=== PATIENT | male | born 1940 | race Caucasian/White ===

== ENCOUNTER 2023-04-16 09:00 | Outpatient (RCR) | payer MEDICARE, SELFPAY | END 2023-04-16 11:10 | disposition home or self-care (01) | LOC: HO.PTCHIC 09:00 | PROVIDERS: PCP Internal Medicine; Visit Provider Internal Medicine | DX: R26.9 Unspecified abnormalities of gait and mobility (principal) | CPT/HCPCS: 97110; 97112; 97162 ==

== ENCOUNTER → 2023-09-11 15:49 | Outpatient (AMB) | payer MEDICARE, SELFPAY ==
--- NOTE | 2023-09-11 16:06 | MHC.OFFWIV ---
Intake Vital Signs 09/11/23 16:07 Height 5 ft 8 in Weight 203 lb BMI 30.9 BP 118/80 Blood Pressure Location Rt brachial Position Sitting Pulse 74 Pulse Source Pulse Oximeter Temp 98.7 F Temp Source Oral Pulse Oximetry (%) 98 Oxygen Delivery Method Room Air Intake Visit Reasons: fell while sanding a bench hit head- see comm Intake Note: pt c/o head pain due to fall. hit head. Approx. 3:30 PM today Patient Tobacco Use Status: Former Tobacco user Allergies No Known Allergies Allergy (Verified 09/11/23 16:10) Do you need a note to return to daycare/school/sports/work: No HPI HPI Comments History of Present Illness Details 83-year-old male presents today after falling off a bench and hitting his head on the concrete he has a large hematoma on the back of his head. He currently is on Eliquis. He denies loss of consciousness and was brought here by his [facility] Social History Patient Tobacco Use Status: Former Tobacco user Review of Systems Const All systems reviewed & are unremarkable except as noted in HPI and below Reports headache(s) Eyes Reports no additional complaints ENT Reports no additional complaints and Reports headache(s) Card Reports no additional complaints Resp Reports no additional complaints Skin/Breast Details: The patient has a large hematoma posterior aspect of his head with a small laceration Reports wounds Neuro Reports headache(s) Physical Exam Vital Signs: Last Vital Signs Temp 98.7 F 09/11/23 16:07 Pulse 74 09/11/23 16:07 BP 118/80 09/11/23 16:07 Pulse Ox 98 09/11/23 16:07 Oxygen Delivery Method Room Air 09/11/23 16:07 BMI result Body Mass Index 30.9 Const General: healthy appearing and acute distress mild HEENT Head: Yes hematoma, Yes laceration and Yes scalp tenderness Assessment & Plan Assessment & Plan (1) Head injury due to trauma: Code(s): S09.90XA - Unspecified injury of head, initial encounter Plan: The patient will go to the emergency department for full workup and possible imaging. His will drive him Plan See plan Coding Level of Care Code Est Pt Level 3 (52433) Diagnoses Head injury due to trauma S09.90XA
[2023-09-11 16:07] VITALS: BP 118/80; PULSE 74; TEMP 37.1; O2SAT 98; BMI 30.9
== END ==
PROVIDERS: PCP Internal Medicine; Visit Provider Physician Assistant Medical
DX: S09.90XA Unspecified injury of head, initial encounter (principal)
CPT/HCPCS: 99213

== ENCOUNTER 2023-09-11 16:41 | Emergency (ER) | payer MEDICARE, SELFPAY ==
--- NOTE | ~2023-09-11 | CT_ITS ---
Examination: CT cervical spine and chest x-ray. CLINICAL INDICATION: Status post fall with head strike. On helical wrist. Back pain. COMPARISON: Chest x-ray 05/13/2010. TECHNIQUE: 3 mm thin axial and reformatted 2 mm thin sagittal and coronal images of cervical spine were obtained. DLP 1056. This CT examination was performed using dose optimization technique as appropriate, variously including the following: Automated exposure control Adjustment of MA and/or KV according to patient size(this includes techniques or standardized protocols for targeted exams where dose is matched to indication/reason for exam; extremities or head. Use of iterative reconstruction techniques. Chest x-ray 1 view. FINDINGS: CHEST: Single view of the chest reveals lungs to be expanded and clear. Heart size is borderline enlarged. Pulmonary vascularity is normal. No gross bony abnormality seen. CERVICAL SPINE: There is mild straightening of cervical lordosis the vertebral heights and alignment is normal. Is loss of C4-C5, C5-C6, C6-C7 and C7-T1 disc heights with mild ventral and posterior spondylosis. The craniovertebral junction and the C1-C2 alignment is normal. There is no visible acute fracture, dislocation or subluxation seen. The prevertebral and paravertebral soft tissues are normal. Moderate left C2-C3, bilateral C3-C4 and C4-C5 facet joint arthropathy is noted. The lung apices are clear. CT/CT cervical spine wo IV con IMPRESSION: 1. No visible acute fracture, dislocation or subluxation seen in cervical spine. 2. Degenerative disc changes C4-C5 through C7-T1 disc levels with mild ventral and posterior spondylosis. 3. Unremarkable chest exam
--- NOTE | ~2023-09-11 | CT_ITS ---
CT HEAD WITHOUT CONTRAST CLINICAL HISTORY: Headache, trauma. On anticoagulation TECHNIQUE: CT of the brain was performed from the skull base through the vertex using a routine non-contrast protocol. All CT exams at this location are performed using dose optimization techniques as appropriate to a performed exam including at least one of the following: * Automated exposure control * Adjustment of the mA and/or kV according to patient size (this includes techniques or standardized protocols for targeted exams where dose is matched to indication / reason for exam; i/e/ extremities or head) * Use of iterative reconstructive technique DLP: 6024 03/30/2010 mGy-cm COMPARISON: None. RESULTS: There is no evidence of acute intracranial hemorrhage, acute large vessel infarct, midline shift or mass effect. The gutierrez-white differentiation is preserved. Periventricular and subcortical white matter changes seen consistent chronic microvascular ischemic disease. Generalized atrophy is seen. Ventricles are prominent in size due to underlying atrophy. There is no evidence of hydrocephalus. There are no extraaxial collections. Osseous structures are intact. Paranasal sinuses and mastoid air cells are well aerated. CT/CT head/brain wo IV con IMPRESSION: No acute intracranial pathology. Chronic microvascular ischemic changes and atrophy.
--- NOTE | ~2023-09-11 | US_ITS ---
EXAMINATION: US VENOUS ULTRASOUND WITH DOPPLER LOWER EXTREMITY, BILATERAL CLINICAL INFORMATION: Bilateral lower extremity pain and swelling COMPARISON: None available. TECHNIQUE: Ultrasound of the deep veins is performed from the hip to the calf with compression sonography and color and pulse Doppler assessment. Spectral analysis with color-flow imaging is performed. FINDINGS: RIGHT: There is normal venous compression and respiratory variation and augmented flow. The visualized common femoral vein, superficial femoral vein, profunda femoral vein, popliteal vein, and the trifurcation region shows no evidence of deep venous thrombosis. There is no significant popliteal fossa cyst. LEFT: There is normal venous compression and respiratory variation and augmented flow. The visualized common femoral vein, superficial femoral vein, profunda femoral vein, popliteal vein, and the trifurcation region shows no evidence of deep venous thrombosis. There is no significant popliteal fossa cyst. Enlarged lymph nodes seen in the left groin measuring 3.1 x 1.0 x 2.1 cm If the patient's symptoms persist, followup ultrasound in 5 days 7 days might be of value to exclude proximal propagation from a non-visualized calf vein. US/US venous duplex LE IMPRESSION: No DVT demonstrated in the bilateral lower extremity.
[2023-09-11 16:49] VITALS: BP 126/60; PULSE 74; RESP 18; TEMP 36.3; O2SAT 96; BMI 30.7
--- NOTE | 2023-09-11 16:50 | ED.FALL ---
HPI - Fall General Chief Complaint: Fall Stated Complaint: Head injury Time Seen by Provider: 09/11/23 17:16 Source: patient Mode of arrival: ambulatory Limitations: no limitations History of Present Illness ED Provider: Zenon CAIN HPI Narrative: This is an 83-year-old male history of obesity, afib anticoagulated on Eliquis presenting to the emergency department with his status post fall from standing, patient reports he was sanding a bench, he stepped back, lost his footing fell back hit his head. No head strike or loss of consciousness. No trauma to chest, abdomen or pelvis. At this time he feels well, he reports he had a mild headache however does not have an anymore. Last dose of Eliquis this morning. He is up-to-date on tetanus shot. Denies preceding symptoms to fall such as chest pain, shortness of breath, headache, vision changes, dizziness, weakness. NIH stroke scale 0 Related Data Home Medications ?Medication ?Instructions ?Recorded ?Confirmed amlodipine 5 mg tablet 5 mg PO DAILY 09/11/23 apixaban 5 mg tablet (Eliquis) 5 mg PO BID 09/11/23 ciclopirox 0.77 % topical cream appl topical 09/11/23 finasteride 5 mg tablet 5 mg PO DAILY 09/11/23 glipizide 10 mg tablet, extended 10 mg PO DAILY 09/11/23 release 24 hr lisinopril 20 mg tablet 20 mg PO BID 09/11/23 metformin 1,000 mg tablet 1,000 mg PO BID 09/11/23 simvastatin 20 mg tablet 20 mg PO BEDTIME 09/11/23 sotalol 80 mg tablet 80 mg PO BID 09/11/23 tamsulosin 0.4 mg capsule 0.8 mg PO DAILY 09/11/23 Allergies Allergy/AdvReac Type Severity Reaction Status Date / Time No Known Allergies Allergy Verified 09/11/23 16:51 Review of Systems Review of Systems: Yes all other systems are reviewed and are negative PMFSH Past Medical History Attestation statement: The following information was validated with the patient. Source: old records reviewed and nursing notes reviewed Social History Social History Patient Tobacco Use Status: Former Tobacco user Smoked in Last 30 Days: No Use of substances other than those prescribed or required for medical reasons: No Advance Directives: No Advance Directives Information Provided: No Physical Exam Vital Signs: Vital Signs: Last Vital Signs Temp 98 F 09/11/23 17:29 Pulse 74 09/11/23 17:29 Resp 17 09/11/23 17:29 BP 149/68 H 09/11/23 17:29 Pulse Ox 97 09/11/23 17:29 O2 Del Method Room Air 09/11/23 17:29 BMI result Body Mass Index 30.7 vss Appearance: Alert.? Oriented X3.? No acute distress.? Head: Normocephalic, atraumatic, no step-offs or deformities + large hematoma to right posterior scalp with overlying non bleeding small lac. Eyes: Pupils equal, round and reactive to light.? Neck: Normal inspection.? Neck supple.? CVS: Normal heart rate and rhythm.? Pulses normal.? Respiratory: No respiratory distress.? Breath sounds normal.? Abdomen: Soft and nontender.? Skin: Skin warm and dry.? Normal skin color.? Normal skin turgor.? Extremities: 4+ pititng edema from knee down b/l L>R .? No calf ttp. 5/5 strength to bilateral upper and lower extremities Back: No midline tenderness, no C-spine tenderness, full range of motion, no CVA tenderness bilaterally Neuro: Oriented X 3.? No motor deficit.? No sensory deficit. CN 2-12 intact . Normal qqaypv-[id number]-rgyw, fppv-br-jqxp. Course Course Course Narrative: This is a Rapid Medical Examination (RME) performed by Cari Hurst PA-C in triage. Full HPI, ROS, assessment and treatment plan per primary provider in the Main ED. 83 yo male with history of afib on eliquis who presents to the ER for evaluation of a mechanical fall w/ head strike. He reports 330pm he tripped and fell backward, hitting the back of his head. no LOC. small lac to the back of the head but no active bleeding. headache resolved. no current symptoms Plan: CT head/c-spine Reevaluation(s) Reevaluation #1: Chest x-ray no visible fracture, degenerative disc changes C4 through C5 through C7-T1. Unremarkable chest exam. Head CT no acute intracranial pathology, chronic microvascular ischemic changes and atrophy. CT cervical spine no visible acute fracture, dislocation or subluxation. Degenerative disc changes C4 through C5 through C7-T1. Wet read of DVT study negative. Patient feeling well. Educated patient on diagnosis and treatment plan, answered all question, patient verbalizes understanding. At this time patient will be discharged home, advised to return with new or worsening symptoms. Educated on worrisome signs and symptoms and when to return. At this time I feel comfortable discharge home. Time: 20:32 Medical Decision Making Medical Decision Making [facility] Narrative: 83-year-old male presents with fall and head injury no loss of consciousness. He has on Eliquis. No complaints at this time Physical exam large hematoma to right posterior scalp with overlying non bleeding small lac. No neuro nonfocal. Cerebellar intact. 4+ pititng edema from knee down b/l L>R .? History and physical exam concerning for concussion without loss of consciousness. Unlikely intracranial hemorrhage, stroke, posterior stroke, scalp fracture, dislocation or facial fractures or dislocation. No signs of traumatic injury to cervical spine. No signs of cervical myelopathy or cord compression. No other injuries to chest, abdomen, pelvis. Patient pain-free. No indication for more imaging at this time. Will obtain BNP to rule out CHF although unlikely as breath sounds are clear to auscultation bilaterally. Will also obtain venous duplex to rule out DVT palpable pulses unlikely arterial occlusion Plan imaging basic labs. Differential Diagnosis Differential Diagnoses: The differential diagnosis associated with the presentation includes History and physical exam concerning for concussion without loss of consciousness. Unlikely intracranial hemorrhage, stroke, posterior stroke, scalp fracture, dislocation or facial fractures or dislocation. No signs of traumatic injury to cervical spine. No signs of cervical myelopathy or cord compression. No other injuries to chest, abdomen, pelvis. Patient pain-free. No indication for more imaging at this time. Will obtain BNP to rule out CHF although unlikely as breath sounds are clear to auscultation bilaterally. Will also obtain venous duplex to rule out DVT palpable pulses unlikely arterial occlusion Admission/Observation Consideration of admission/observation: Escalation of care including admission/observation considered [facility] Lab Data [facility] Lab Attestation statement: I reviewed the patient's lab results. 09/11/23 17:37 09/11/23 18:45 Labs: Lab Results 09/11/23 09/11/23 09/11/23 Range/Units 17:37 17:56 18:45 WBC 5.4 (4.8-10.8) X10*3/uL RBC 3.71 L (4.60-5.80) X10*6/uL Hgb 12.0 L (14.0-18.0) g/dl Hct 35.0 L (42.0-52.0) % MCV 94.3 (80.0-98.0) fL MCH 32.3 (27.0-33.0) pg MCHC 34.3 (31.0-36.0) g/dl RDW 12.6 (11.0-16.0) % Plt Count 212 (160-400) X10*3/uL MPV 9.4 (9.4-12.4) fL Immature Gran % (Auto) 0.2 (0.0-0.4) % Neut % (Auto) 76.9 H (45-73) % Lymph % (Auto) 9.6 L (20-40) % [place] % (Auto) 7.4 (2-11) % Eos % (Auto) 5.7 H (0-4) % Baso % (Auto) 0.2 (0-2) % Lymph # (Auto) 0.5 L (1.2-4.9) X10*3/uL [place] # (Auto) 0.4 (0.1-1.2) X10*3/uL Eos # (Auto) 0.3 (0.0-0.4) X10*3/uL Baso # (Auto) 0.0 (0.0-0.2) X10*3/uL Abs Immat Gran (auto) 0.01 (0.00-0.03) X10*3/uL Absolute Neuts (auto) 4.2 (2.0-8.3) x10*3/uL Absolute Nucleated RBC 0.000 (0.0-0.012) X10*3/uL Nucleated RBC % (auto) 0.0 (0.0-0.2) /100WBC PT 13.9 H (11.1-13.3) SEC INR 1.1 (0.9-1.1) Sodium 140 (135-145) mmol/L Potassium 4.4 (3.3-5.1) mmol/L Chloride 109 H (96-108) mmol/L Carbon Dioxide 23 (22-29) mmol/L Anion Gap 12 (12-20) BUN 18 H (9-16) mg/dL Creatinine 1.15 (0.5-1.4) mg/dL Estim Creat Clear Calc 52.5 Estimated GFR > 60 Random Glucose 149 H (60-115) mg/dL Calcium 9.4 (8.4-10.2) mg/dL Total Bilirubin 0.6 (0.0-1.0) mg/dL AST 14 (5-37) U/L ALT 12 (0-40) U/L Alkaline Phosphatase 55 (39-117) U/L Troponin I High Sens 2.9 (<3.5-35.0) ng/L B-Natriuretic Peptide 44 (<100) pg/mL Total Protein 6.1 L (6.5-8.0) g/dL Albumin 3.8 (3.5-5.0) g/dL Independent Interpretation I performed an independent interpretation of an: EKG (Vent. Rate : 067 BPM Atrial Rate : 067 BPM P-R Int : 188 ms QRS Dur : 084 ms QT Int : 410 ms P-R-T Axes : 038 020 035 degrees QTc Int : 433 ms Normal sinus rhythm Normal ECG When compared with ECG of 04-APR-2014 16:23, No significant change was found), Plain X-Ray, Ultrasound and CT Scan Radiology Impression Discussion of test interpretation with radiology: I have reviewed the radiologist's reading. External Record Review External record reviewed: Outpatient record Prescription Management I considered prescription management with: Pain Medication Social Determinants Patient?s care significantly limited by Social Determinants of Health including: Problems related to employment Discharge Plan Discharge Clinical Impression: Concussion without loss of consciousness, Fall on same level from tripping, Lower extremity edema Patient Disposition: Home, Self-Care Instructions: Concussion (ED), Post Concussion Syndrome (ED), Leg Edema (ED) Additional Instructions: Take your medications as prescribed. If you were prescribed antibiotics today, it is important that you take your medication to their entirety, do not skip any doses, do not finish them early. Follow-up with your primary care provider this week. Return to the emergency department with new or worsening symptoms. Such as fevers, chills, chest pain, shortness of breath, nausea, vomiting, dizziness, headache, vision changes, lethargy In case of emergency call 911 You can take Tylenol as needed every 4 hours for pain. Do not exceed maximum daily dose as listed on packaging Follow-up with your PCP for lower extremity swelling CT/CT head/brain wo IV con IMPRESSION: No acute intracranial pathology. Chronic microvascular ischemic changes and atrophy. CHEST: Single view of the chest reveals lungs to be expanded and clear. Heart size is borderline enlarged. Pulmonary vascularity is normal. No gross bony abnormality seen. CERVICAL SPINE: There is mild straightening of cervical lordosis the vertebral heights and alignment is normal. Is loss of C4-C5, C5-C6, C6-C7 and C7-T1 disc heights with mild ventral and posterior spondylosis. The craniovertebral junction and the C1-C2 alignment is normal. There is no visible acute fracture, dislocation or subluxation seen. The prevertebral and paravertebral soft tissues are normal. Moderate left C2-C3, bilateral C3-C4 and C4-C5 facet joint arthropathy is noted. The lung apices are clear. XR/XR chest 1V IMPRESSION: 1. No visible acute fracture, dislocation or subluxation seen in cervical spine. 2. Degenerative disc changes C4-C5 through C7-T1 disc levels with mild ventral and posterior spondylosis. 3. Unremarkable chest exam Prescriptions: No Action amlodipine 5 mg tablet 5 mg PO DAILY sotalol 80 mg tablet 80 mg PO BID ciclopirox 0.77 % cream topical lisinopril 20 mg tablet 20 mg PO BID metformin 1,000 mg tablet 1,000 mg PO BID glipizide 10 mg tablet extended release 24hr 10 mg PO DAILY simvastatin 20 mg tablet 20 mg PO BEDTIME tamsulosin 0.4 mg capsule 0.8 mg PO DAILY finasteride 5 mg tablet 5 mg PO DAILY Eliquis 5 mg tablet 5 mg PO BID Referrals: Ruben Paul DO, MD [Primary Care Provider] - 2 days Print Language: Bangladeshi
[2023-09-11 17:29] VITALS: BP 149/68; PULSE 74; RESP 17; TEMP 36.6; O2SAT 97
--- NOTE | 2023-09-11 17:36 | ECG_ITS ---
Test Reason : FALL, HEAD STRIKE Blood Pressure : / mmHG Vent. Rate : 067 BPM Atrial Rate : 067 BPM P-R Int : 188 ms QRS Dur : 084 ms QT Int : 410 ms P-R-T Axes : 038 020 035 degrees QTc Int : 433 ms Normal sinus rhythm Normal ECG When compared with ECG of 04-APR-2014 16:23, No significant change was found Referred By: Radha Trotter Electronically Signed By:Rd Hou
[2023-09-11 17:42] LABS: MANUAL DIFF FLAG NO
[2023-09-11 17:45] LABS: Basophils Percent Auto 0.2 % (0-2); Eosinophils Absolute Auto 0.3 X10*3/uL (0.0-0.4); Eosinophils Percent Auto 5.7 % (0-4); Imm Gran Abs Auto 0.01 X10*3/uL (0.00-0.03); Imm Gran Pct Auto 0.2 % (0.0-0.4); Lymphocytes Absolute Auto 0.5 X10*3/uL (1.2-4.9); Lymphocytes Percent Auto 9.6 % (20-40); Mean Corpuscular HGB Conc 34.3 g/dl (31.0-36.0); Mean Corpuscular Hemoglobin 32.3 pg (27.0-33.0); Mean Corpuscular Volume 94.3 fL (80.0-98.0); Mean Platelet Volume 9.4 fL (9.4-12.4); Monocytes Absolute Auto 0.4 X10*3/uL (0.1-1.2); Monocytes Percent Auto 7.4 % (2-11); Neutrophils Absolute Auto 4.2 x10*3/uL (2.0-8.3); Neutrophils Percent Auto 76.9 % (45-73); Platelet Count 212 X10*3/uL (160-400); Red Blood Count 3.71 X10*6/uL (4.60-5.80); Red Cell Distribution Width 12.6 % (11.0-16.0); White Blood Count 5.4 X10*3/uL (4.8-10.8)
[2023-09-11 17:50] LABS: INTERNATIONAL NORM RATIO 1.1 (0.9-1.1); Prothrombin Time 13.9 SEC (11.1-13.3)
[2023-09-11 18:24] LABS: Troponin-I High Sensitivity 2.9 ng/L (<3.5-35.0)
[2023-09-11 19:08] LABS: Alanine Aminotransferase 12 U/L (0-40); Albumin Level 3.8 g/dL (3.5-5.0); Alkaline Phosphatase 55 U/L (39-117); Anion Gap 12 (12-20); Aspartate Amino Transferase 14 U/L (5-37); Bilirubin Total 0.6 mg/dL (0.0-1.0); Blood Urea Nitrogen 18 mg/dL (9-16); Calcium 9.4 mg/dL (8.4-10.2); Carbon Dioxide 23 mmol/L (22-29); Chloride 109 mmol/L (96-108); Creatinine Clr Calc Pharmacy 52.5; Estimated Glomerular Filt Rate > 60; Glucose Random 149 mg/dL (60-115); Potassium 4.4 mmol/L (3.3-5.1); Sodium 140 mmol/L (135-145); Total Protein 6.1 g/dL (6.5-8.0)
--- NOTE | 2023-09-11 19:29 | PC.NURSE ---
Assumed care of pt. See head to toe reassessment of cardiovascular for findings on edema. No other complaints at this time.
[2023-09-11 19:44] LABS: B Type Natriuretic Peptide 44 pg/mL (<100)
[2023-09-11 21:04] VITALS: BP 149/68; PULSE 74; RESP 17; TEMP 36.6; O2SAT 97
== END 2023-09-11 21:05 | disposition home or self-care (01) ==
PROVIDERS: Physician Assistant; Emergency Provider Emergency Medicine; PCP Internal Medicine
DX: S06.0X0A Concussion without loss of consciousness, initial encounter (principal); R60.0 Localized edema; M54.2 Cervicalgia; R51.9 Headache, unspecified; R07.89 Other chest pain; I48.91 Unspecified atrial fibrillation; R06.02 Shortness of breath; W01.0XXA Fall on same level from slipping, tripping and stumbling without subsequent striking against object, initial encounter; Y93.89 Activity, other specified; Y92.098 Other place in other non-institutional residence as the place of occurrence of the external cause; Y99.8 Other external cause status; Z79.899 Other long term (current) drug therapy; Z79.01 Long term (current) use of anticoagulants
CPT/HCPCS: 36415; 70450; 71045; 72125; 80053; 83880; 84484; 85025; 85610; 93005; 93970; 99284; 99285

== ENCOUNTER → 2023-09-11 17:36 | Outpatient (BNV) | payer MEDICARE, SELFPAY | PROVIDERS: Emergency Provider Emergency Medicine; PCP Internal Medicine; Visit Provider Internal Medicine Cardiovascular Disease | DX: S09.90XA Unspecified injury of head, initial encounter (principal); W19.XXXA Unspecified fall, initial encounter | CPT/HCPCS: 93010 ==

== ENCOUNTER 2024-01-13 14:31 | Inpatient (IN) | payer MEDICARE, SELFPAY ==
--- NOTE | ~2024-01-13 | CT_ITS ---
EXAMINATION: CT HEAD WITHOUT CONTRAST CLINICAL INFORMATION: Headache on blood thinner COMPARISON: Head CT 09/11/2023 TECHNIQUE: Contiguous axial imaging was performed from the skull base to vertex without intravenous administration of contrast. This CT examination was performed using dose optimization techniques as appropriate, variously including the following: *Automated exposure control *Adjustment of mA and/or kV according to patient size (this includes techniques or standardized protocols for targeted exams where dose is matched to indication/reason for exam; i.e. extremities or head) *Use of iterative reconstruction technique DLP: 1074 mGy-cm FINDINGS: No intra-axial or extra-axial hemorrhage. No acute territorial infarct. Chronic small vessel ischemic disease of the periventricular white matter with generalized atrophy. Preservation of gutierrez-white matter differentiation. No mass, mass effect, or midline shift. No fracture. The mastoid air cells and visualized paranasal sinuses are clear. CT/CT head/brain wo IV con IMPRESSION: No acute intracranial pathology. Electronically signed by: Douglas Contreras MD 01/13/2024 05:31 PM [facility]
--- NOTE | ~2024-01-13 | XR_ITS ---
EXAMINATION: XR CHEST CLINICAL INFORMATION: fever COMPARISON: September 11, 2023 TECHNIQUE: Frontal view of the chest was obtained. FINDINGS: The cardiomediastinal silhouette is within normal limits and stable. There appears to be bronchial thickening and perihilar increased markings. There is no focal lung consolidation or pleural effusions. The bony structures and the soft tissues are unremarkable. XR/XR chest 1V IMPRESSION: Bronchial thickening and perihilar increased markings. Consider bronchitis. No focal lung consolidation. Electronically signed by: Gaurang Baker MD 01/14/2024 01:09 AM [facility]
--- NOTE | ~2024-01-13 | CT_ITS ---
EXAMINATION: CT ANGIOGRAM HEAD AND NECK WITHOUT AND WITH CONTRAST CLINICAL INFORMATION: HEADACHE. COMPARISON: CT HEAD DATED 01/13/2024. TECHNIQUE: CONTIGUOUS AXIAL CT IMAGES WERE OBTAINED FROM THE AORTIC ARCH TO THE VERTEX OF THE HEAD FOLLOWING THE ADMINISTRATION OF 50 ML OF OMNIPAQUE 350 INTRAVENOUS CONTRAST. THE DATA WAS TRANSFERRED TO AN INDEPENDENT WORKSTATION, WHERE 3-D RECONSTRUCTIONS WERE PERFORMED. PRE-AND POSTCONTRAST HEAD CT WAS ALSO PERFORMED. THE DEGREE OF STENOSIS DETERMINED BY NASCET CRITERIA. THIS CT EXAMINATION WAS PERFORMED USING DOSE OPTIMIZATION TECHNIQUES APPROPRIATE, VARIOUSLY INCLUDING THE FOLLOWING: *AUTOMATED EXPOSURE CONTROL *ADJUSTMENT OF MA AND/OR KV ACCORDING TO PATIENT SIZE (THIS INCLUDES TECHNIQUES OR STANDARDIZED PROTOCOLS FOR TARGETED EXAMS WHERE DOSE IS MATCHED TO INDICATION/REASON FOR EXAM; I.E. EXTREMITIES OR HEAD) *USE OF ITERATIVE RECONSTRUCTION TECHNIQUE DLP: 1449 MGY-CM INTERPRETATION OF FILMS: HEAD CT: There is no intracranial hemorrhage. No evidence of acute/subacute infarction. There is moderate microvascular ischemic change. No extra-axial fluid collection, mass effect, or midline shift. The ventricles are normal in size and configuration. There is no pathologic enhancement. The orbits are symmetric and within normal limits. Visualized paranasal sinuses and mastoid air cells are clear. NECK CTA: The visualized aorta is normal in caliber. The origins of the common carotid and vertebral arteries are widely patent. The subclavian arteries are widely patent. There is mild calcific atherosclerotic disease at the level of the right carotid bulb resulting in mild luminal irregularity without stenosis. The cervical segment of the right internal carotid otherwise demonstrates smooth luminal margins and is normal in caliber. There is mild calcific atherosclerotic disease at the level of the left carotid bulb resulting in mild luminal irregularity without stenosis. The cervical segment of the left internal carotid otherwise demonstrates smooth luminal margins and is normal in caliber. The right vertebral artery is patent and has a normal course through the cervical region. The left vertebral artery is patent and has a normal course through the cervical region. HEAD CTA: The intracranial right internal carotid artery is normal in caliber. The right anterior and middle cerebral arteries are normal in appearance without significant stenosis or major branch vessel occlusion. The intracranial left internal carotid artery is normal in caliber. The left anterior and middle cerebral arteries are normal in appearance without significant stenosis or major branch vessel occlusion. The anterior communicating artery is unremarkable. The right vertebral artery terminates in PICA. The left vertebral artery is normal in appearance. The posterior inferior cerebellar arteries are normal in appearance. There is a short segment fenestration within the proximal third of the basilar artery. The basilar artery and posterior cerebral artery vasculature are otherwise normal in appearance. No intracranial aneurysm. No evidence of high flow vascular malformation. OTHER: Lung apices are clear. The thyroid gland is normal in appearance. SUMMARY: CT HEAD: No acute intracranial abnormality. NECK CTA: Mild calcific atherosclerotic disease at the level of the carotid bulbs results in mild luminal irregularity without stenosis. HEAD CTA: No intracranial large vessel occlusion. Electronically signed by: Tomas Nicole DO 01/13/2024 10:09 PM EST
--- NOTE | ~2024-01-13 | CT_ITS ---
EXAMINATION: CT CHEST WITHOUT CONTRAST CLINICAL INFORMATION: Concern for pneumonia. COMPARISON: None available. TECHNIQUE: Multidetector volumetric CT imaging of the chest was done. Axial MIP volume rendering provided. Sagittal and coronal reformatted images were obtained. This CT examination was performed using dose optimization techniques as appropriate, variously including the following: *Automated exposure control *Adjustment of mA and/or kV according to patient size (this includes techniques or standardized protocols for targeted exams where dose is matched to indication/reason for exam; i.e. extremities or head) *Use of iterative reconstruction technique DLP: 457 mGy-cm FINDINGS: HEAD WAITER: Unremarkable. LUNGS: There is mild dependent consolidation at the lung bases most significant on the left. The lungs are otherwise clear. There is bilateral bronchial thickening. MEDIASTINUM: [The heart is normal in size. There is no pericardial effusion. There is atherosclerotic plaque of the thoracic aorta without aneurysm. There is no significant lymph node enlargement. CORONARY ARTERY CALCIFICATION: Moderate to severe. PLEURA: There is no pleural effusion. No pleural mass or thickening. AXILLA: No lymphadenopathy. UPPER ABDOMEN: There appear to be left renal calculi. OSSEOUS STRUCTURES: Unremarkable. CT/CT chest wo IV con IMPRESSION: 1. Mild dependent consolidation at the lung bases, left greater than right. This is most consistent with atelectasis. Infectious infiltrate considered less likely. 2. Bilateral bronchial thickening. Suspect bronchitis. 3. Coronary artery calcifications. 4. Left renal calculi. Fleischner guidelines were followed. Electronically signed by: Gaurang Baker MD 01/14/2024 03:16 AM [facility]
[2024-01-13 14:54] VITALS: BP 160/90; PULSE 90; O2SAT 96
[2024-01-13 15:04] VITALS: BP 159/71; PULSE 80; RESP 18; TEMP 36.7; O2SAT 93; BMI 28.7
--- NOTE | 2024-01-13 15:14 | ECG_ITS ---
Test Reason : weakness Blood Pressure : / mmHG Vent. Rate : 087 BPM Atrial Rate : 087 BPM P-R Int : 182 ms QRS Dur : 082 ms QT Int : 366 ms P-R-T Axes : 050 039 033 degrees QTc Int : 440 ms Normal sinus rhythm Normal ECG When compared with ECG of 11-SEP-2023 17:47, No significant change was found Referred By: Solange Mcclendon Electronically Signed By:Rd Hou
[2024-01-13 15:34] LABS: Basophils Percent Auto 0.5 % (0-2); Eosinophils Absolute Auto 0.1 X10*3/uL (0.0-0.4); Eosinophils Percent Auto 1.1 % (0-4); Hematocrit 36.6 % (42.0-52.0); Hemoglobin 12.1 g/dl (14.0-18.0); Imm Gran Abs Auto 0.02 X10*3/uL (0.00-0.03); Imm Gran Pct Auto 0.4 % (0.0-0.4); Lymphocytes Absolute Auto 0.1 X10*3/uL (1.2-4.9); Lymphocytes Percent Auto 2.2 % (20-40); MANUAL DIFF FLAG NO; Mean Corpuscular HGB Conc 33.1 g/dl (31.0-36.0); Mean Corpuscular Hemoglobin 31.3 pg (27.0-33.0); Mean Corpuscular Volume 94.8 fL (80.0-98.0); Mean Platelet Volume 9.8 fL (9.4-12.4); Monocytes Absolute Auto 0.3 X10*3/uL (0.1-1.2); Monocytes Percent Auto 5.8 % (2-11); Platelet Count 228 X10*3/uL (160-400); Red Blood Count 3.86 X10*6/uL (4.60-5.80); White Blood Count 5.5 X10*3/uL (4.8-10.8)
[2024-01-13 15:52] LABS: Alanine Aminotransferase 18 U/L (0-40); Albumin Level 3.8 g/dL (3.5-5.0); Alkaline Phosphatase 49 U/L (39-117); Anion Gap 13 (12-20); Aspartate Amino Transferase 16 U/L (5-37); Bilirubin Direct 0.3 mg/dL (0.0-0.5); Bilirubin Total 0.8 mg/dL (0.0-1.0); Blood Urea Nitrogen 19 mg/dL (9-16); Carbon Dioxide 21 mmol/L (22-29); Chloride 106 mmol/L (96-108); Creatinine Clr Calc Pharmacy 58.8; Estimated Glomerular Filt Rate > 60; Glucose Random 156 mg/dL (60-115); Lipase 18 U/L (8-78); Magnesium 1.9 mg/dL (1.6-2.6); Potassium 3.9 mmol/L (3.3-5.1); Sodium 136 mmol/L (135-145); Total Protein 6.1 g/dL (6.5-8.0)
[2024-01-13 16:00] LABS: Troponin-I High Sensitivity 4.8 ng/L (<3.5-35.0)
--- NOTE | 2024-01-13 16:01 | ED.GENADULT ---
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 data, radiology results, discussion with consultants, and monitoring for potential decompensation. Intervention performed as documented. Discharge Plan Discharge Clinical Impression: Headache Qualifiers: Headache type: unspecified Headache chronicity pattern: acute headache Intractability: intractable Qualified Code(s): R51.9 - Headache, unspecified Patient Disposition: Admitted As Inpatient Interventions: Admission Worksheet (ED) Last Done: 01/15/24 13:53 Discharge Date/Time: 01/15/24 15:17
[2024-01-13 16:10] LABS: B Type Natriuretic Peptide 164 pg/mL (<100)
[2024-01-13 16:27] LABS: Influenza A PCR NEGATIVE (Negative); Influenza B PCR NEGATIVE (Negative); Resp Syncy Virus RNA Qual PCR NEGATIVE (Negative); SARS COV2 PCR INHOUSE NEGATIVE (Negative)
[2024-01-13] MEDS: Acetaminophen 1,000 MG/100 ML PIGGYBACK 400 MG IV (16:51)
[2024-01-13 18:00] VITALS: BP 130/59; PULSE 70; RESP 18; TEMP 36.7; O2SAT 95
[2024-01-13] MEDS: iohexoL 350 MG/ML 100 ML INFUS..BTL IV (18:10)
[2024-01-13 18:50] LABS: Carbon Monoxide 2.4
[2024-01-13 18:50] LABS: Carbon Monoxide POC 2.4 %
[2024-01-13 19:34] LABS: Appearance Urine Clear; Color Urine Yellow; Glucose Urine UA 250 mg/dL (Negative); Leukocyte Esterase Urine Negative (Negative); Nitrite Urine Negative (Negative); Specific Gravity - Urine >= 1.030 (1.005-1.025); Urine Blood Negative (Negative); Urine Ketones 15 mg/dL (Negative); Urine Protein Trace mg/dL (Neg-Trace)
[2024-01-13 23:40] VITALS: BP 123/55; PULSE 82; RESP 20; TEMP 39.5; O2SAT 98
[2024-01-14] VITALS (14 sets, daily range): BP systolic 112–147; BP diastolic 47–71; PULSE 40–73; RESP 10–24; TEMP 36.3–39.4; O2SAT 92–100
[2024-01-14 00:38] LABS: C Reactive Protein 3.49 mg/dL (< or = 0.50)
[2024-01-14 00:46] LABS: Lactic Acid 1.3 mmol/L (0.5-2.0)
[2024-01-14] MEDS: Acetaminophen 1,000 MG/100 ML PIGGYBACK 400 MG IV (00:49)
[2024-01-14] MEDS: 0.9 % Sodium Chloride 1,000 ML 999 ML IV (00:50)
[2024-01-14] MEDS: Morphine Sulfate 2 MG/ML CARTRIDGE IVPUSH (00:53)
[2024-01-14] MEDS: cefTRIAXone sodium 2 GM VIAL IVPUSH ×3 (00:59→22:13)
--- NOTE | 2024-01-14 01:01 | PC.NURSE ---
pt temp 103.1, provider aware @2340, new orders in for labs and meds, however provided wanted to wait to do a lumbar puncture first before these interventions. this group underwriter followed up with provider at 0040 and was told LP was cancelled d/t pt taking eliquis. labs drawn and medication given following new information.
[2024-01-14] MEDS: Azithromycin 500 MG in 0.9 % Sodium Chloride 250 ML 125 MG IV (01:13)
[2024-01-14 01:17] LABS: Erythrocyte Sedimentation Rate 28 MM/HR (0-15)
--- NOTE | 2024-01-14 02:32 | PM.IMHP ---
History of Present Illness Date of Service: 01/14/24 Attending physician on admission: Madison Hart Chief Complaint: Headache Katina Stephens is 83 years old man with past medical history significant for AFib on Eliquis, essential hypertension and type 2 diabetes mellitus presents to the ED complaining of 1-week history of frontal headache associated with nausea and soft stools. He underwent a dental procedure (left upper teeth) about 10 days ago. He took a course of amoxicillin for 7 days. He denied any event of vomiting, neck pain, sore throat, cough, chest pain, abdominal pain or shortness on breath. He did not report any acute visual disturbances, focal weakness or speech difficulty. He did not report any acute urinary symptoms. HPI was somewhat limited as the patient was very uncomfortable due to headache. In the ED, he was found to have fever of 103. There is no tachycardia or hypotension. Oxygen saturation is normal on room air. Blood workup showed no leukocytosis or lactic acidosis. Hemoglobin is 12.1 and platelets 228. Electrolytes are normal. BUN is 19 and creatinine 1.09. Glucose 156. LFTs and lipase are normal. CRP is 3.49, BNP 164 and troponin 4.8. Urinalysis did not showed evidence of UTI but there is positive ketones. Viral testing for COVID-19, influenza and RSV is negative. Head CT scan showed no acute intracranial abnormality. Head and neck CTA showed no intracranial large vessel occlusion or stenosis. CXR showed no focal lung consolidation pleural effusion on infiltrates. Chest CT obtained and results are pending. ECG showed normal sinus rhythm without ischemic changes. ED tx: Tylenol 2 g IV, Benadryl 25 mg IV, Reglan 10 mg IV, morphine 2 mg IV, ceftriaxone 2 g IV, azithromycin 500 mg IV, ampicillin 2 g IV, vancomycin, Valtrex 1 g PO, dexamethasone 10 g IV, NS 1 L bolus Review of Systems Review of Systems: Yes Unobtainable due to mental condition [facility] Medical History (Updated 01/14/24 @ 02:57 by Madison Hart MD) BPH (benign prostatic hyperplasia) Type 2 diabetes mellitus Hyperlipidemia Paroxysmal atrial fibrillation Essential hypertension Social History Patient Tobacco Use Status: Former Tobacco user Smoked in Last 30 Days: No Use of substances other than those prescribed or required for medical reasons: No Advance Directives: No Advance Directives Information Provided: Yes Do you have a plan to hurt others: No Plan Meds Allergies Allergy/AdvReac Type Severity Reaction Status Date / Time No Known Allergies Allergy Verified 01/13/24 15:07 Active Medications: Current Medications Acetaminophen (Acetaminophen 325 Mg Tablet) 975 mg PO Q6H PRN PRN Reason: Pain, Mild (Pain Scale 1-3), fever or headache Calcium Carbonate (Calcium Carbonate 750 Mg Tab.Chew) 750 mg PO Q4H PRN PRN Reason: Heartburn Ceftriaxone Sodium (Ceftriaxone Sodium 2 Gm Vial) 2 gm IVPUSH Q12H [facility] Dexamethasone Sodium Phosphate (Dexamethasone Sod Phosphate 10 Mg/Ml Vial) 10 mg IVPUSH Q6H [facility] Stop: 01/18/24 07:59 Vancomycin HCl (Vancomycin/Ns) 2,000 mg in 500 mls @ 250 mls/hr IV ONCE ONE Stop: 01/14/24 03:24 Ampicillin Sodium 2 gm/ Sodium (Chloride) 100 mls @ 200 mls/hr IV Q4H [facility] Lactated Ringer's (Lr) 1,000 mls @ 125 mls/hr IVCONT .Q8H [facility] Magnesium Hydroxide (Milk Of Magnesia 30 Ml Oral.Susp) 30 ml PO DAILY PRN PRN Reason: Constipation Melatonin (Melatonin 3 Mg Tablet) 6 mg PO BEDTIME PRN PRN Reason: Insomnia Ondansetron HCl (Ondansetron Hcl 4 Mg/2 Ml Vial) 4 mg IVPUSH Q8H PRN PRN Reason: Nausea and Vomiting Pharmacy Consult (Consult Rx Vancomycin Dosing) 1 each MISCELLANE DAILY PRN PRN Reason: Consult order Sodium Chloride (0.9 % Sodium Chloride Flush 3 Ml Syringe) 3 ml IVFLUSH QSHIFT [facility] Home Medications ?Medication ?Instructions ?Recorded ?Confirmed ?Last Taken ?Type amlodipine 5 mg tablet 5 mg PO DAILY 09/11/23 Unknown History apixaban 5 mg tablet (Eliquis) 5 mg PO BID 09/11/23 Unknown History ciclopirox 0.77 % topical cream appl topical 09/11/23 Unknown History finasteride 5 mg tablet 5 mg PO DAILY 09/11/23 Unknown History glipizide 10 mg tablet, extended 10 mg PO DAILY 09/11/23 Unknown History release 24 hr lisinopril 20 mg tablet 20 mg PO BID 09/11/23 Unknown History metformin 1,000 mg tablet 1,000 mg PO BID 09/11/23 Unknown History simvastatin 20 mg tablet 20 mg PO BEDTIME 09/11/23 Unknown History sotalol 80 mg tablet 80 mg PO BID 09/11/23 Unknown History tamsulosin 0.4 mg capsule 0.8 mg PO DAILY 09/11/23 Unknown History Physical Exam Vital Signs and Narrative: Vital Signs: Last Vital Signs Temp 100.4 F 01/14/24 01:22 Pulse 71 01/14/24 00:59 Resp 24 H 01/14/24 00:59 BP 147/60 H 01/14/24 00:59 Pulse Ox 94 01/14/24 00:59 O2 Del Method Room Air 01/14/24 00:59 BMI result Body Mass Index 28.7 Constitutional - Awake and Alert. Looks very uncomfortable due to headache. Febrile. HEENT - PERRL, EOMI. Dry oral mucosa. No nuchal rigidity. Heart - S1S2, RRR, No murmurs. Lungs - Normal lung expansion, Normal respiratory effort, No respiratory distress, CTA bilaterally Abdomen - NT / ND; +BS; No rebound or guarding Extremities - no calf tenderness bilaterally, no swelling Musculoskeletal - Normal inspection, normal ROM Skin - Warm/Dry Neurological - Alert & oriented x3. CN III-XII intact. Normal speech. Moves all extremities symmetrically. Psychological - Depressed affect Results Labs 01/13/24 15:26 01/13/24 15:26 Labs: Laboratory Results - last 24 hr 01/13/24 01/13/24 01/13/24 15:26 18:47 19:27 MCV 94.8 MCH 31.3 MCHC 33.1 RDW 13.0 Plt Count 228 MPV 9.8 Immature Gran % (Auto) 0.4 Neut % (Auto) 90.0 H Lymph % (Auto) 2.2 L [place] % (Auto) 5.8 Eos % (Auto) 1.1 Baso % (Auto) 0.5 Lymph # (Auto) 0.1 L [place] # (Auto) 0.3 Eos # (Auto) 0.1 Baso # (Auto) 0.0 Abs Immat Gran (auto) 0.02 Absolute Neuts (auto) 5.0 Absolute Nucleated RBC 0.000 Nucleated RBC % (auto) 0.0 ESR Carboxyhemoglobin % 2.4 Anion Gap 13 Estim Creat Clear Calc 58.8 Estimated GFR > 60 Random Glucose 156 H Lactic Acid Calcium 9.0 Magnesium 1.9 Total Bilirubin 0.8 Direct Bilirubin 0.3 AST 16 ALT 18 Alkaline Phosphatase 49 Troponin I High Sens 4.8 D C-Reactive Protein 3.49 H B-Natriuretic Peptide 164 H Total Protein 6.1 L Albumin 3.8 Lipase 18 Urine Color Yellow Urine Appearance Clear Urine pH 5.0 Ur Specific George >= 1.030 H Urine Protein Trace Urine Glucose (UA) 250 H Urine Ketones 15 Urine Blood Negative Urine Nitrite Negative Ur Leukocyte Esterase Negative Influenza Type A (PCR) NEGATIVE Influenza Type B (PCR) NEGATIVE RSV RNA Qual (PCR) NEGATIVE SARS-CoV-2 RNA (RT-PCR) NEGATIVE 01/14/24 00:28 MCV MCH MCHC RDW Plt Count MPV Immature Gran % (Auto) Neut % (Auto) Lymph % (Auto) [place] % (Auto) Eos % (Auto) Baso % (Auto) Lymph # (Auto) [place] # (Auto) Eos # (Auto) Baso # (Auto) Abs Immat Gran (auto) Absolute Neuts (auto) Absolute Nucleated RBC Nucleated RBC % (auto) ESR 28 H Carboxyhemoglobin % Anion Gap Estim Creat Clear Calc Estimated GFR Random Glucose Lactic Acid 1.3 Calcium Magnesium Total Bilirubin Direct Bilirubin AST ALT Alkaline Phosphatase Troponin I High Sens C-Reactive Protein B-Natriuretic Peptide Total Protein Albumin Lipase Urine Color Urine Appearance Urine pH Ur Specific [place] Urine Protein Urine Glucose (UA) Urine Ketones Urine Blood Urine Nitrite Ur Leukocyte Esterase Influenza Type A (PCR) Influenza Type B (PCR) RSV RNA Qual (PCR) SARS-CoV-2 RNA (RT-PCR) Imaging Radiologist's Impressions: Impressions Head CT 01/13/24 15:43 IMPRESSION: No acute intracranial pathology. Electronically signed by: Douglas Contreras MD 01/13/2024 05:31 PM EST RP Chest X-Ray 01/14/24 00:03 IMPRESSION: Bronchial thickening and perihilar increased markings. Consider bronchitis. No focal lung consolidation. Electronically signed by: Gaurang Baker MD 01/14/2024 01:09 AM EST RP Assessment and Plan (1) Headache: Qualifiers: Headache type: unspecified Headache chronicity pattern: acute headache Intractability: intractable Qualified Code(s): R51.9 - Headache, unspecified Status: Acute (2) Meningitis: Status: Acute (3) Fever: Qualifiers: Fever type: unspecified Qualified Code(s): R50.9 - Fever, unspecified Status: Acute Plan Katina Stephens is 83 y/o man admitted with: Fever and headache, suspecting meningitis. Admit to hospitalist service. Droplet precautions. Continue empiric IV antibiotic therapy with vancomycin, ceftriaxone and ampicillin. Continue dexamethasone 10 mg IV every 6 hours for 4 days. Unable to perform LP due to use of Eliquis. ID consult. Essential hypertension. Continue amlodipine and lisinopril. AFib. Continue Eliquis and sotalol. Type 2 diabetes mellitus. Hold metformin due to recent administration of IV contrast. BG checks before meals at bedtime. Insulin sliding scale. Continue glipizide. Hyperlipidemia. Continue statin. BPH. Continue tamsulosin and/or finesteride. DVT prophylaxis: Eliquis Code status: Full Patient will need hospitalization for at least 2 midnights for suspecting meningitis treatment with vancomycin, ceftriaxone and ampicillin. Quality Stroke Does the patient have a stroke diagnosis?: No VTE Prior VTE?: No VTE Risk Level:: Medical - moderate - high VTE Device Contraindication: Treatment Not Indicated VTE Drug Contraindication: N/A - Med Ordered
[2024-01-14] MEDS: valACYclovir HCL 1,000 MG TABLET 1000 MG PO (02:48)
[2024-01-14] MEDS: Ketorolac Tromethamine 15 MG/ML VIAL IVPUSH (02:48)
[2024-01-14] MEDS: dexAMETHasone sod phosphate 10 MG/ML VIAL IVPUSH ×4 (02:48→20:05)
--- NOTE | 2024-01-14 03:31 | PC.NURSE ---
assist pt with urinal, pt now resting comfortably in bed at this time
[2024-01-14] MEDS: Ampicillin Sodium 2 GM in 0.9 % Sodium Chloride 100 ML IV ×5 (04:21→20:04)
[2024-01-14] MEDS: Lactated Ringers 1,000 ML 125 ML IVCONT ×3 (04:56→22:17)
[2024-01-14] MEDS: vancomycin/NS 2,000 MG/500 ML PLAST..BAG 250 MG IV (04:56)
[2024-01-14 05:01] LABS: Basophils Percent Auto 0.4 % (0-2); Hematocrit 29.9 % (42.0-52.0); Hemoglobin 9.9 g/dl (14.0-18.0); Imm Gran Abs Auto 0.02 X10*3/uL (0.00-0.03); Imm Gran Pct Auto 0.4 % (0.0-0.4); Lymphocytes Absolute Auto 0.2 X10*3/uL (1.2-4.9); Lymphocytes Percent Auto 3.4 % (20-40); MANUAL DIFF FLAG SCAN; Mean Corpuscular HGB Conc 33.1 g/dl (31.0-36.0); Mean Corpuscular Hemoglobin 31.8 pg (27.0-33.0); Mean Corpuscular Volume 96.1 fL (80.0-98.0); Mean Platelet Volume 9.8 fL (9.4-12.4); Monocytes Absolute Auto 0.2 X10*3/uL (0.1-1.2); Monocytes Percent Auto 3.7 % (2-11); Neutrophils Absolute Auto 4.9 x10*3/uL (2.0-8.3); Neutrophils Percent Auto 92.1 % (45-73); Platelet Count 194 X10*3/uL (160-400); Red Blood Count 3.11 X10*6/uL (4.60-5.80); Red Cell Distribution Width 13.1 % (11.0-16.0); SCAN SMEAR FLAG 1; White Blood Count 5.4 X10*3/uL (4.8-10.8)
[2024-01-14 05:19] LABS: Alanine Aminotransferase 6 U/L (0-40); Albumin Level 3.2 g/dL (3.5-5.0); Alkaline Phosphatase 37 U/L (39-117); Anion Gap 14 (12-20); Aspartate Amino Transferase 16 U/L (5-37); Bilirubin Total 0.5 mg/dL (0.0-1.0); Blood Urea Nitrogen 18 mg/dL (9-16); Carbon Dioxide 18 mmol/L (22-29); Chloride 109 mmol/L (96-108); Creatinine Clr Calc Pharmacy 66.1; Estimated Glomerular Filt Rate > 60; Glucose Random 165 mg/dL (60-115); Magnesium 1.8 mg/dL (1.6-2.6); Potassium 3.7 mmol/L (3.3-5.1); Sodium 137 mmol/L (135-145); Total Protein 5.1 g/dL (6.5-8.0)
[2024-01-14 05:20] LABS: SLIDE REVIEW VERIFIED
--- NOTE | 2024-01-14 05:37 | PC.NURSE ---
med rec completed, pt able to recall medications when read back to him from [facility] records
--- NOTE | 2024-01-14 07:01 | PHA.PROG ---
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 Weight in k.4 kg Adjusted body weight in Kg: [place] body weight in Kg: Obesity Dosing Indication % IBW: Serum Creatinine - Last 168 Hours 01/13/24 01/14/24 15:26 04:33 Creatinine 1.09 0.97 Estimated CrCl and GFR - Last 168 Hours 01/13/24 01/14/24 15:26 04:33 Estim Creat Clear Calc 58.8 66.1 Estimated GFR > 60 > 60 Vancomycin Loading Dose: 2000 MG Current Vancomycin Dosing Regimen: 1000 MG Q12H Vancomycin Monitoring using AUC goal of 400 - 600 range with trough as surrogate marker: XBP=277 TROUGH=21.4 Date and Time for next Vancomycin Level to be drawn: 01/15/24 @1500 Pharmacist Comments on Vancomycin Plan: start dosing more on the aggressive side at the beginning since it's for 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 May need to decrease dose once trough comes back on 01/14. Vancomycin dosing will take advantage of [employer] as a clinical decision support tool that uses Bayesian modeling to calculate individual patient's pharmacokinetic parameters and forecast the patient's drug concentration time course with the target goal AUC 24 range of 400 - 600 mg/L/hr.
[2024-01-14] MEDS: Insulin Lispro 100 UNIT/ML 3 ML VIAL SUBCUT ×4 (07:41→22:11)
[2024-01-14] MEDS: 0.9 % Sodium Chloride Flush 3 ML SYRINGE IVFLUSH (07:43)
[2024-01-14 07:50] LABS: Glucose, Whole Blood 179 mg/dL (60-115)
--- NOTE | 2024-01-14 08:00 | PHA.MEDREC ---
Pharmacy Consult ? Medication Reconciliation Pharmacy has reviewed the medication reconciliation done by RN
[2024-01-14 08:48] LABS: Adenovirus PCR Not Detected (Not Detect.); Bordetella parapertussis PCR Not Detected (Not Detect.); Bordetella pertussis PCR Not Detected (Not Detect.); Chlamydia pneumoniae PCR Not Detected (Not Detect.); Coronavirus 229E PCR Not Detected (Not Detect.); Coronavirus HKU1 PCR Not Detected (Not Detect.); Coronavirus NL63 PCR Not Detected (Not Detect.); Coronavirus OC43 PCR Not Detected (Not Detect.); Human metapneumovirus PCR Not Detected (Not Detect.); Influenza A PCR Not Detected (Not Detect.); Influenza B PCR Not Detected (Not Detect.); Mycoplasma pneumoniae PCR Not Detected (Not Detect.); Parainfluenza 1 PCR Not Detected (Not Detect.); Parainfluenza 2 PCR Not Detected (Not Detect.); Parainfluenza 3 PCR Not Detected (Not Detect.); Parainfluenza 4 PCR Not Detected (Not Detect.); RSV PCR Not Detected (Not Detect.); Rhino/Enterovirus PCR Not Detected (Not Detect.)
[2024-01-14] MEDS: Tamsulosin HCL 0.4 MG CAPSULE 0.8 MG PO (09:23)
--- NOTE | 2024-01-14 09:50 | PM.EVENT ---
Event Note Date of Service: 01/14/24 Event Note: Pt seen and examined. Admiited this morning with AMS, fever and headach and concern for meningitis. Unable to do LP d/t eliquis use Fever and headache, concern for meningitis. -continue Ceftriaxone, Vanco, ampicillin -ID consult HTN - Continue amlodipine, hold lisinopril. AFib. Continue Sotalol. Eliquis on hold for possible LP Type 2 diabetes mellitus. Hold metformin due to recent administration of IV contrast. BG checks before meals at bedtime. Insulin sliding scale. Continue glipizide. Hyperlipidemia. Continue statin. BPH. Continue tamsulosin and/or finesteride. 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
[2024-01-14 10:02] LABS: SARS-CoV-2 PCR Not Detected (Not Detect.)
[2024-01-14] MEDS: Atorvastatin Calcium 10 MG TABLET PO (10:27)
--- NOTE | 2024-01-14 11:08 | MHC.CM.PN ---
IMM 01/14/24, Pt lives with his , he is independent, no home health services. He uses a cane. HCP will be his , [facility], form to be completed here and added to his chart. will transport home at DC. DCP: home, self care. CM to follow for DC needs.
--- NOTE | 2024-01-14 11:45 | PC.NURSE ---
Pt.'s HR noted to be in 40s while asleep. Carole Petersen MD notified and aware.
[2024-01-14 13:44] LABS: Glucose, Whole Blood 266 mg/dL (60-115)
[2024-01-14 15:00] LABS: Anion Gap 13 (12-20); Blood Urea Nitrogen 22 mg/dL (9-16); Calcium 8.2 mg/dL (8.4-10.2); Carbon Dioxide 22 mmol/L (22-29); Chloride 106 mmol/L (96-108); Creatinine Clr Calc Pharmacy 53.4; Estimated Glomerular Filt Rate 58; Glucose Random 317 mg/dL (60-115); Potassium 4.7 mmol/L (3.3-5.1); Sodium 136 mmol/L (135-145)
--- NOTE | 2024-01-14 16:34 | P.CNID_ITS ---
History of Present Illness Data of Consult Service Date: 01/14/24 Requesting physician: Gagan Garvey Primary Care Provider: Ruben Paul DO, MD HPI Reason for consult: fever and headache He has had fever to 101 and frontal headache for two weeks. He has no nausea or vomiting. No one else is ill. He has no meningismus. Review of Systems 2 Review of Systems: Yes all other systems are reviewed and are negative [facility] Past Medical History Medical History BPH (benign prostatic hyperplasia) Type 2 diabetes mellitus Hyperlipidemia Paroxysmal atrial fibrillation Essential hypertension Social History Social History Patient Tobacco Use Status: Former Tobacco user Smoked in Last 30 Days: No Use of substances other than those prescribed or required for medical reasons: No Advance Directives: No Advance Directives Information Provided: Yes Do you have a plan to hurt others: No Plan service: Yes Meds Allergies Allergy/AdvReac Type Severity Reaction Status Date / Time No Known Allergies Allergy Verified 01/13/24 15:07 Active Medications: Current Medications Acetaminophen (Acetaminophen 325 Mg Tablet) 975 mg PO Q6H PRN PRN Reason: Pain, Mild (Pain Scale 1-3), fever or headache Amlodipine Besylate (Amlodipine Besylate 5 Mg Tablet) 5 mg PO DAILY [facility]; Protocol Atorvastatin Calcium (Atorvastatin Calcium 10 Mg Tablet) 10 mg PO DAILY [facility] Last Admin: 01/14/24 10:27 Dose: 10 mg Calcium Carbonate (Calcium Carbonate 750 Mg Tab.Chew) 750 mg PO Q4H PRN PRN Reason: Heartburn Ceftriaxone Sodium (Ceftriaxone Sodium 2 Gm Vial) 2 gm IVPUSH Q12H [facility] Last Admin: 01/14/24 09:23 Dose: 2 gm Dexamethasone Sodium Phosphate (Dexamethasone Sod Phosphate 10 Mg/Ml Vial) 10 mg IVPUSH Q6H [facility] Stop: 01/18/24 07:59 Last Admin: 01/14/24 13:52 Dose: 10 mg Finasteride (Finasteride 5 Mg Tablet) 5 mg PO DAILY [facility] Glipizide (Glipizide Xl 10 Mg Tab.Er.24) 10 mg PO DAILY [facility] Last Admin: 01/14/24 11:08 Dose: Not Given Glucose (Glucose Gel 15 Gm Gel..Gram.) 15 gm PO Q15M PRN; Protocol PRN Reason: per Hypoglycemia Standing Ord. Ampicillin Sodium 2 gm/ Sodium (Chloride) 100 mls @ 200 mls/hr IV Q4H [facility] Last Infusion: 01/14/24 13:35 Dose: Infused Lactated Ringer's (Lr) 1,000 mls @ 125 mls/hr IVCONT .Q8H [facility] Last Admin: 01/14/24 10:27 Dose: 125 mls/hr Dextrose (D10) 250 mls @ 750 mls/hr IV Q15M PRN; Protocol PRN Reason: per Hypoglycemia Standing Ord. Vancomycin HCl 1,000 mg/ (Sodium Chloride) 270 mls @ 270 mls/hr IV Q12H [facility] Insulin Human Lispro (Insulin Lispro 100 Unit/Ml 3 Ml Vial) 0 unit SUBCUT QIDACHS [facility]; Protocol Last Admin: 01/14/24 13:52 Dose: 6 unit Magnesium Hydroxide (Milk Of Magnesia 30 Ml Oral.Susp) 30 ml PO DAILY PRN PRN Reason: Constipation Melatonin (Melatonin 3 Mg Tablet) 6 mg PO BEDTIME PRN PRN Reason: Insomnia Ondansetron HCl (Ondansetron Hcl 4 Mg/2 Ml Vial) 4 mg IVPUSH Q8H PRN PRN Reason: Nausea and Vomiting Pharmacy Consult (Consult Rx Vancomycin Dosing) 1 each MISCELLANE DAILY PRN PRN Reason: Consult order Sodium Chloride (0.9 % Sodium Chloride Flush 3 Ml Syringe) 3 ml IVFLUSH QSHIFT [facility] Last Admin: 01/14/24 15:36 Dose: Not Given Sotalol HCl (Sotalol Hcl 80 Mg Tablet) 80 mg PO BID [facility] Tamsulosin HCl (Tamsulosin Hcl 0.4 Mg Capsule) 0.8 mg PO DAILY [facility] Last Admin: 01/14/24 09:23 Dose: 0.8 mg Home Medications ?Medication ?Instructions ?Recorded ?Confirmed ?Last Taken ?Type amlodipine 5 mg tablet 5 mg PO DAILY 09/11/23 01/14/24 Unknown History apixaban 5 mg tablet (Eliquis) 5 mg PO BID 09/11/23 01/14/24 Unknown History finasteride 5 mg tablet 5 mg PO DAILY 09/11/23 01/14/24 Unknown History glipizide 10 mg tablet, extended 10 mg PO DAILY 09/11/23 01/14/24 Unknown History release 24 hr lisinopril 20 mg tablet 20 mg PO BID 09/11/23 01/14/24 Unknown History metformin 1,000 mg tablet 1,000 mg PO BID 09/11/23 01/14/24 Unknown History simvastatin 20 mg tablet 20 mg PO BEDTIME 09/11/23 01/14/24 Unknown History tamsulosin 0.4 mg capsule 0.8 mg PO DAILY 09/11/23 01/14/24 Unknown History sotalol 80 mg tablet 80 mg PO BID 01/14/24 01/14/24 Unknown History Physical Exam 2 Vital Signs: Vital Signs: Last Vital Signs Temp 97.8 F 01/14/24 12:44 Pulse 60 01/14/24 12:44 Resp 14 01/14/24 12:44 BP 118/53 L 01/14/24 12:44 Pulse Ox 100 01/14/24 12:44 O2 Del Method Room Air 01/14/24 12:44 BMI result Body Mass Index 28.7 Const: General: cooperative HEENT: Head: Yes normal to inspection Face and sinus: Yes normal facial exam Mouth: Normal oral and palatal mucosa present Teeth and gingiva: d entition normal Eyes: General: appearance normal, both eyes and all related structures P upils: Equal, round and reactive pupils present Resp: Effort & Inspection: normal respiratory effort Cardio: Rate: regular rate Rhythm: regular rhythm GI: Palpation (GI): Soft to palpation and nontender : General: Yes no CVA tenderness Back/Spine/Pelvis: Back: no CVA tenderness Skin: General skin exam: no rashes or lesions noted Neuro: General: moves all extremities Cranial nerves: Yes Equal, round and reactive pupils present Extrem: General: Yes normal to inspection Psych: Appearance: grossly normal Results Labs 01/14/24 04:33 01/14/24 14:31 Labs: Short CBC 01/14/24 Range/Units 04:33 WBC 5.4 (4.8-10.8) X10*3/uL Hgb 9.9 L (14.0-18.0) g/dl Hct 29.9 L (42.0-52.0) % Plt Count 194 (160-400) X10*3/uL BMP 01/14/24 01/14/24 04:33 14:31 Sodium 137 136 Potassium 3.7 4.7 D Chloride 109 H 106 Carbon Dioxide 18 L 22 BUN 18 H 22 H Creatinine 0.97 1.20 Calcium 8.0 L D 8.2 L Liver Function 01/14/24 Range/Units 04:33 Total Bilirubin 0.5 (0.0-1.0) mg/dL AST 16 (5-37) U/L ALT 6 (0-40) U/L Alkaline Phosphatase 37 L (39-117) U/L Albumin 3.2 L (3.5-5.0) g/dL Urine 01/13/24 Range/Units 19:27 Urine Color Yellow Urine Appearance Clear Urine pH 5.0 (5.0-9.0) Ur Specific [place] >= 1.030 H (1.005-1.025) Urine Protein Trace (Neg-Trace) mg/dL Urine Glucose (UA) 250 H (Negative) mg/dL Assessment and Plan (1) Fever: Qualifiers: Fever type: unspecified Qualified Code(s): R50.9 - Fever, unspecified Status: Acute (2) Headache: Qualifiers: Headache chronicity pattern: acute headache Headache type: unspecified Intractability: intractable Qualified Code(s): R51.9 - Headache, unspecified Status: Acute (3) Head injury due to trauma: Status: Acute Plan He cant get LP due to anticoagulation with Eliquis. HSV encephalitis possible. Would stop Ampicillin and Vancomycin tomorrow if blood cultures negative. Add Acyclovir 10mg/kg every 8 hours. Continue Ceftriaxone ?MRI brain.
[2024-01-14 16:46] LABS: Glucose, Whole Blood 306 mg/dL (60-115)
[2024-01-14] MEDS: vancomycin HCL 1,000 MG in 0.9 % Sodium Chloride 250 ML 270 MG IV (17:02)
[2024-01-14 18:21] LABS: Glucose, Whole Blood 268 mg/dL (60-115)
[2024-01-14 20:15] LABS: Glucose, Whole Blood 296 mg/dL (60-115)
[2024-01-14] MEDS: Sotalol HCL 80 MG TABLET PO (22:46)
[2024-01-15] VITALS (9 sets, daily range): BP systolic 131–158; BP diastolic 57–74; PULSE 50–68; RESP 14–20; TEMP 36.1–36.8; O2SAT 94–97
[2024-01-15] MEDS: Ampicillin Sodium 2 GM in 0.9 % Sodium Chloride 100 ML IV ×4 (01:23→13:21)
[2024-01-15] MEDS: 0.9 % Sodium Chloride Flush 3 ML SYRINGE IVFLUSH ×4 (01:31→20:48)
[2024-01-15] MEDS: dexAMETHasone sod phosphate 10 MG/ML VIAL IVPUSH ×4 (03:26→20:47)
[2024-01-15] MEDS: vancomycin HCL 1,000 MG in 0.9 % Sodium Chloride 250 ML 270 MG IV (05:16)
[2024-01-15] MEDS: Lactated Ringers 1,000 ML 125 ML IVCONT ×2 (05:22→10:00)
[2024-01-15 05:29] LABS: Anion Gap 12 (12-20); Blood Urea Nitrogen 20 mg/dL (9-16); Calcium 8.3 mg/dL (8.4-10.2); Carbon Dioxide 20 mmol/L (22-29); Chloride 108 mmol/L (96-108); Creatinine Clr Calc Pharmacy 73.7; Estimated Glomerular Filt Rate > 60; Glucose Random 225 mg/dL (60-115); Potassium 3.9 mmol/L (3.3-5.1); Sodium 136 mmol/L (135-145)
[2024-01-15 07:32] LABS: Glucose, Whole Blood 211 mg/dL (60-115)
[2024-01-15] MEDS: Insulin Lispro 100 UNIT/ML 3 ML VIAL SUBCUT ×4 (08:10→20:47)
--- NOTE | 2024-01-15 08:17 | PC.NURSE ---
pt resting, axox3, denies headache. nsr on monitor. ate full breakfast. no complaints except fatigue at htis time. no dental pain. uses urinal frequently. Able to state needs. Skin PWD. unlabored resp,. awaits bed assignment on floor.
[2024-01-15] MEDS: amLODIPine Besylate 5 MG TABLET PO (08:44)
[2024-01-15] MEDS: Finasteride 5 MG TABLET PO (08:44)
[2024-01-15] MEDS: Tamsulosin HCL 0.4 MG CAPSULE 0.8 MG PO (08:44)
[2024-01-15] MEDS: Atorvastatin Calcium 10 MG TABLET PO (08:44)
[2024-01-15] MEDS: cefTRIAXone sodium 2 GM VIAL IVPUSH ×2 (08:48→20:47)
[2024-01-15] MEDS: glipiZIDE XL 10 MG TAB.ER.24 PO (09:18)
[2024-01-15] MEDS: Sotalol HCL 80 MG TABLET PO ×2 (09:18→20:47)
--- NOTE | 2024-01-15 10:02 | PC.NURSE ---
this nurse took over patient care from nancy at 9am, pt a&ox3, oob with assist to commode at bedside for BM, rr equal/lungs diminished- pt became sob with movement but countinued to speak in full sentences, lungs diminished throughout, pt denies pain/discomfort at this time, lead furnace operator intact sinus eve on monitor, LR @125 running per order, call crews within reach, will continue to monitor
--- NOTE | 2024-01-15 10:30 | PC.NURSE ---
patient a&ox3, vss,nuclear monitoring technician intact, call crews within reach, will continue to monitor
[2024-01-15 12:00] LABS: Glucose, Whole Blood 296 mg/dL (60-115)
--- NOTE | 2024-01-15 13:30 | PC.NURSE ---
patient sleeping, wakes to verbal stimulus, pt medicated with insulin and given lunch tray, case monitor intact, ivf running per order, call crews within reach, will continue to monitor
--- NOTE | 2024-01-15 14:49 | P.PNIM_ITS ---
Subjective Subjective Date of Service: 01/15/24 Interval History: f/u on fever, BOLANOS, concern for meningitis fever resolved, no headache, no neck pain or rigidity Physical Exam 2 Vital Signs: Vital Signs: Last Vital Signs Temp 98.1 F 01/15/24 10:18 Pulse 54 01/15/24 10:18 Resp 14 01/15/24 10:18 BP 131/61 01/15/24 10:18 Pulse Ox 96 01/15/24 10:18 O2 Del Method Room Air 01/15/24 10:18 BMI result Body Mass Index 28.7 General: AO X 3, no acute distress Resp: CTA bilateral CVS: S1,S2,RRR GI: +BS, NT, no distention Skin: No rash Neuro: motor grossly intact Psych: appropriate affect Objective Data Active Medications Acetaminophen (Acetaminophen 325 Mg Tablet) 975 mg PO Q6H PRN PRN Reason: Pain, Mild (Pain Scale 1-3), fever or headache Amlodipine Besylate (Amlodipine Besylate 5 Mg Tablet) 5 mg PO DAILY [facility]; Protocol Last Admin: 01/15/24 08:44 Dose: 5 mg Documented By: CYNTHIA Atorvastatin Calcium (Atorvastatin Calcium 10 Mg Tablet) 10 mg PO DAILY [facility] Last Admin: 01/15/24 08:44 Dose: 10 mg Documented By: CYNTHIA Calcium Carbonate (Calcium Carbonate 750 Mg Tab.Chew) 750 mg PO Q4H PRN PRN Reason: Heartburn Ceftriaxone Sodium (Ceftriaxone Sodium 2 Gm Vial) 2 gm IVPUSH Q12H [facility] Last Admin: 01/15/24 08:48 Dose: 2 gm Documented By: CYNTHIA Dexamethasone Sodium Phosphate (Dexamethasone Sod Phosphate 10 Mg/Ml Vial) 10 mg IVPUSH Q6H [facility] Stop: 01/18/24 07:59 Last Admin: 01/15/24 13:21 Dose: 10 mg Documented By: SANFORD Finasteride (Finasteride 5 Mg Tablet) 5 mg PO DAILY [facility] Last Admin: 01/15/24 08:44 Dose: 5 mg Documented By: CYNTHIA Glipizide (Glipizide Xl 10 Mg Tab.Er.24) 10 mg PO DAILY [facility] Last Admin: 01/15/24 09:18 Dose: 10 mg Documented By: JOSE Glucose (Glucose Gel 15 Gm Gel..Gram.) 15 gm PO Q15M PRN; Protocol PRN Reason: per Hypoglycemia Standing Ord. Dextrose (D10) 250 mls @ 750 mls/hr IV Q15M PRN; Protocol PRN Reason: per Hypoglycemia Standing Ord. Acyclovir Sodium 750 mg/ (Sodium Chloride) 265 mls @ 265 mls/hr IV Q8H [facility] Last Infusion: 01/15/24 09:06 Dose: Infused Documented By: SANFORD Insulin Human Lispro (Insulin Lispro 100 Unit/Ml 3 Ml Vial) 0 unit SUBCUT QIDACHS [facility]; Protocol Last Admin: 01/15/24 13:21 Dose: 6 unit Documented By: SANFORD Magnesium Hydroxide (Milk Of Magnesia 30 Ml Oral.Susp) 30 ml PO DAILY PRN PRN Reason: Constipation Melatonin (Melatonin 3 Mg Tablet) 6 mg PO BEDTIME PRN PRN Reason: Insomnia Ondansetron HCl (Ondansetron Hcl 4 Mg/2 Ml Vial) 4 mg IVPUSH Q8H PRN PRN Reason: Nausea and Vomiting Pharmacy Consult (Consult Rx Vancomycin Dosing) 1 each MISCELLANE DAILY PRN PRN Reason: Consult order Sodium Chloride (0.9 % Sodium Chloride Flush 3 Ml Syringe) 3 ml IVFLUSH QSHIFT [facility] Last Admin: 01/15/24 08:11 Dose: 3 ml Documented By: JOSE Sotalol HCl (Sotalol Hcl 80 Mg Tablet) 80 mg PO BID [facility] Last Admin: 01/15/24 09:18 Dose: 80 mg Documented By: JOSE Tamsulosin HCl (Tamsulosin Hcl 0.4 Mg Capsule) 0.8 mg PO DAILY [facility] Last Admin: 01/15/24 08:44 Dose: 0.8 mg Documented By: CYNTHIA Labs 01/14/24 04:33 01/15/24 04:39 Labs: Laboratory Results - last 24 hr 01/14/24 01/14/24 01/14/24 14:31 16:34 18:16 Anion Gap 13 Estim Creat Clear Calc 53.4 Estimated GFR 58 POC Glucose 306 H 268 H Random Glucose 317 H Calcium 8.2 L Magnesium 2.0 01/14/24 01/15/24 01/15/24 20:11 04:39 07:21 Anion Gap 12 Estim Creat Clear Calc 73.7 Estimated GFR > 60 POC Glucose 296 H 211 H Random Glucose 225 H Calcium 8.3 L Magnesium 2.0 01/15/24 11:45 Anion Gap Estim Creat Clear Calc Estimated GFR POC Glucose 296 H Random Glucose Calcium Magnesium Microbiology Microbiology Results: Microbiology 01/14/24 00:54 Blood Culture - Preliminary Blood - Venous No growth after 24 hours. 01/14/24 00:28 Blood Culture - Preliminary Blood - Venous No growth after 24 hours. Assessment and Plan (1) Encephalitis: Status: Acute Plan 83/m who presented with Fever and headache, concern for meningitis -Initiated on Ceftriaxone, Vanco, ampicillin, and dexamethasone -No longer has fever, headache or change in mental status. -Unable to do LP d/t eliquis -ID consult saw and recommend stopping ampicillin, vanco if culture negative today -startedon Acyclovir for possible encephalitis HTN - Continue amlodipine, hold lisinopril. BP normal AFib. Continue Sotalol. Eliquis on hold for possible LP Type 2 diabetes mellitus. Hold metformin due to recent administration of IV contrast. BG checks before meals at bedtime. Insulin sliding scale. Continue glipizide. Hyperlipidemia. Continue statin. BPH. Continue tamsulosin and/or finesteride. Lovenox and if no LP done tomorrow will restart DVT prophylaxis: compression device, elquis on hold Quality Stroke Does the patient have a stroke diagnosis?: No VTE Prior VTE?: No VTE Risk Level:: Medical - moderate - high VTE Device Contraindication: Treatment Not Indicated VTE Drug Contraindication: N/A - Med Ordered
[2024-01-15 16:05] LABS: Vancomycin Random 13.8 mcg/mL (15-20)
[2024-01-15] MEDS: Enoxaparin Sodium 40 MG/0.4 ML SYRINGE SUBCUT (16:39)
[2024-01-15 16:41] LABS: Glucose, Whole Blood 306 mg/dL (60-115)
[2024-01-15 20:22] LABS: Glucose, Whole Blood 239 mg/dL (60-115)
--- NOTE | 2024-01-15 23:46 | PC.NURSE ---
2330 pt SB on monitor throughout the evening. lowest HR 29 reported to md. pt sleeping, easily aroused, denies c/o chest pain.
[2024-01-16] VITALS (7 sets, daily range): BP systolic 142–170; BP diastolic 60–74; PULSE 52–72; RESP 16–20; TEMP 36.1–36.6; O2SAT 96–99
[2024-01-16] MEDS: dexAMETHasone sod phosphate 10 MG/ML VIAL IVPUSH ×4 (02:17→19:51)
[2024-01-16 07:04] LABS: Anion Gap 12 (12-20); Blood Urea Nitrogen 22 mg/dL (9-16); Calcium 8.3 mg/dL (8.4-10.2); Carbon Dioxide 21 mmol/L (22-29); Chloride 110 mmol/L (96-108); Creatinine Clr Calc Pharmacy 75.5; Estimated Glomerular Filt Rate > 60; Glucose Random 201 mg/dL (60-115); Potassium 3.6 mmol/L (3.3-5.1); Sodium 139 mmol/L (135-145)
[2024-01-16 08:09] LABS: Glucose, Whole Blood 189 mg/dL (60-115)
[2024-01-16] MEDS: Sotalol HCL 80 MG TABLET PO (08:10)
[2024-01-16] MEDS: cefTRIAXone sodium 2 GM VIAL IVPUSH ×2 (08:10→22:26)
[2024-01-16] MEDS: Tamsulosin HCL 0.4 MG CAPSULE 0.8 MG PO (08:10)
[2024-01-16] MEDS: glipiZIDE XL 10 MG TAB.ER.24 PO (08:10)
[2024-01-16] MEDS: 0.9 % Sodium Chloride Flush 3 ML SYRINGE IVFLUSH ×3 (08:11→19:51)
[2024-01-16] MEDS: Finasteride 5 MG TABLET PO (08:11)
[2024-01-16] MEDS: Atorvastatin Calcium 10 MG TABLET PO (08:11)
[2024-01-16] MEDS: amLODIPine Besylate 5 MG TABLET PO (08:11)
[2024-01-16] MEDS: Insulin Lispro 100 UNIT/ML 3 ML VIAL SUBCUT ×4 (08:13→22:02)
--- NOTE | 2024-01-16 10:25 | MHC.CM.PN ---
Per ROUNDS discussion, Patient is not yet medically cleared for dc (? LP/pending ID); home is the goal and CM will continue to follow.
--- NOTE | 2024-01-16 12:00 | P.PNIM_ITS ---
Subjective Subjective Date of Service: 01/16/24 Interval History: f/u on fever, BOLANOS, concern for meningitis no symptoms of meningitis in over 48 hours. Physical Exam 2 Vital Signs: Vital Signs: Last Vital Signs Temp 97.9 F 01/16/24 11:12 Pulse 56 01/16/24 11:12 Resp 18 01/16/24 11:12 BP 149/60 H 01/16/24 11:12 Pulse Ox 96 01/16/24 11:12 O2 Del Method Room Air 01/16/24 11:12 BMI result Body Mass Index 28.7 General: AO X 3, no acute distress Resp: CTA bilateral CVS: S1,S2,RRR GI: +BS, NT, no distention Skin: No rash Neuro: motor grossly intact Psych: appropriate affect Objective Data Active Medications Acetaminophen (Acetaminophen 325 Mg Tablet) 975 mg PO Q6H PRN PRN Reason: Pain, Mild (Pain Scale 1-3), fever or headache Amlodipine Besylate (Amlodipine Besylate 5 Mg Tablet) 5 mg PO DAILY [facility]; Protocol Last Admin: 01/16/24 08:11 Dose: 5 mg Documented By: SERINA Atorvastatin Calcium (Atorvastatin Calcium 10 Mg Tablet) 10 mg PO DAILY [facility] Last Admin: 01/16/24 08:11 Dose: 10 mg Documented By: SERINA Calcium Carbonate (Calcium Carbonate 750 Mg Tab.Chew) 750 mg PO Q4H PRN PRN Reason: Heartburn Ceftriaxone Sodium (Ceftriaxone Sodium 2 Gm Vial) 2 gm IVPUSH Q12H [facility] Last Admin: 01/16/24 08:10 Dose: 2 gm Documented By: SERINA Dexamethasone Sodium Phosphate (Dexamethasone Sod Phosphate 10 Mg/Ml Vial) 10 mg IVPUSH Q6H [facility] Stop: 01/18/24 07:59 Last Admin: 01/16/24 08:10 Dose: 10 mg Documented By: SERINA Enoxaparin Sodium (Enoxaparin Sodium 40 Mg/0.4 Ml Syringe) 40 mg SUBCUT Q24H [facility] Last Admin: 01/15/24 16:39 Dose: 40 mg Documented By: MOIZOTPAT Finasteride (Finasteride 5 Mg Tablet) 5 mg PO DAILY [facility] Last Admin: 01/16/24 08:11 Dose: 5 mg Documented By: SERINA Glipizide (Glipizide Xl 10 Mg Tab.Er.24) 10 mg PO DAILY [facility] Last Admin: 01/16/24 08:10 Dose: 10 mg Documented By: SERINA Glucose (Glucose Gel 15 Gm Gel..Gram.) 15 gm PO Q15M PRN; Protocol PRN Reason: per Hypoglycemia Standing Ord. Dextrose (D10) 250 mls @ 750 mls/hr IV Q15M PRN; Protocol PRN Reason: per Hypoglycemia Standing Ord. Acyclovir Sodium 750 mg/ (Sodium Chloride) 265 mls @ 265 mls/hr IV Q8H [facility] Last Admin: 01/16/24 11:39 Dose: 265 mls/hr Documented By: SERINA Insulin Human Lispro (Insulin Lispro 100 Unit/Ml 3 Ml Vial) 0 unit SUBCUT QIDACHS [facility]; Protocol Last Admin: 01/16/24 11:49 Dose: 6 unit Documented By: SERINA Magnesium Hydroxide (Milk Of Magnesia 30 Ml Oral.Susp) 30 ml PO DAILY PRN PRN Reason: Constipation Melatonin (Melatonin 3 Mg Tablet) 6 mg PO BEDTIME PRN PRN Reason: Insomnia Ondansetron HCl (Ondansetron Hcl 4 Mg/2 Ml Vial) 4 mg IVPUSH Q8H PRN PRN Reason: Nausea and Vomiting Sodium Chloride (0.9 % Sodium Chloride Flush 3 Ml Syringe) 3 ml IVFLUSH QSHIFT [facility] Last Admin: 01/16/24 08:11 Dose: 3 ml Documented By: SERINA Sotalol HCl (Sotalol Hcl 80 Mg Tablet) 80 mg PO BID [facility] Last Admin: 01/16/24 08:10 Dose: 80 mg Documented By: SERINA Tamsulosin HCl (Tamsulosin Hcl 0.4 Mg Capsule) 0.8 mg PO DAILY [facility] Last Admin: 01/16/24 08:10 Dose: 0.8 mg Documented By: SERINA Labs 01/14/24 04:33 01/16/24 06:16 Labs: Laboratory Results - last 24 hr 01/15/24 01/15/24 01/15/24 11:45 15:34 16:38 Anion Gap Estim Creat Clear Calc Estimated GFR POC Glucose 296 H 306 H Random Glucose Calcium Magnesium Random Vancomycin 13.8 L 01/15/24 01/16/24 01/16/24 20:13 06:16 07:43 Anion Gap 12 Estim Creat Clear Calc 75.5 Estimated GFR > 60 POC Glucose 239 H 189 H Random Glucose 201 H Calcium 8.3 L Magnesium 2.0 Random Vancomycin Microbiology Microbiology Results: Microbiology 01/14/24 00:54 Blood Culture - Preliminary Blood - Venous No growth after 48 hours. 01/14/24 00:28 Blood Culture - Preliminary Blood - Venous No growth after 48 hours. Assessment and Plan (1) Encephalitis: Status: Acute Plan 83/m who presented with Fever and headache, concern for meningitis -Initiated on Ceftriaxone, Vanco, ampicillin, and dexamethasone -No longer has fever, headache or change in mental status. -Unable to do LP d/t eliquis -ID automotive internet sales consultant, saw and recommend stopping ampicillin and vanco -continue Ceftriaxone and Acyclovir, discuss with ID further weather LP is still needed HTN - Continue amlodipine, hold lisinopril. BP normal AFib. Continue Sotalol. Eliquis on hold for possible LP Type 2 diabetes mellitus. Hold metformin due to recent administration of IV contrast. BG checks before meals at bedtime. Insulin sliding scale. Continue glipizide. Hyperlipidemia. Continue statin. BPH. Continue tamsulosin and/or finesteride. Lovenox and if no LP done tomorrow will restart DVT prophylaxis: compression device, elquis on hold Quality Stroke Does the patient have a stroke diagnosis?: No VTE Prior VTE?: No VTE Risk Level:: Medical - moderate - high VTE Device Contraindication: Treatment Not Indicated VTE Drug Contraindication: N/A - Med Ordered
[2024-01-16 12:19] LABS: Glucose, Whole Blood 288 mg/dL (60-115)
--- NOTE | 2024-01-16 15:44 | P.CDIM_ITS ---
PROVIDER RESPONSE TEXT: To clarify, the appropriate diagnosis supported by the clinical indicators: Diabetes mellitus Type 2 with hyperglycemia: t2dm with hyperglycemia QUERY TEXT: PHYSICIAN'S DOCUMENTATION REQUEST Date of Query: 01/16/2024 09:52 AM EST Patient Name: Katina Stephens Admit Date: 01/14/2024 Dear Gagan Petersen MD, A review of the medical record indicates additional documentation may be needed. Please review below and update the documentation accordingly. Clinical Indicators: LABS: POC glucose 306 H 189 H Insulin sliding scale Continue glipizide. Type 2 Diabetes mellitus Please clarify the following regarding labs: Diabetes mellitus Type 2 with hyperglycemia please specify if other such as uncontrolled, poorly controlled etc. Other (explain) Clinically unable to determine (explain) Thank you, Lashell Holden, CCS, CDIS Use of terms such as suspected, likely, concern for, or probable (associated with a specific diagnosi s that is being evaluated, monitored, or treated as if it exists) are acceptable and can be coded in the inpatient se tting, when documented at the time of discharge. Please use your independent medical judgment in providing your response. THIS QUERY IS PART OF THE PERMANENT MEDICAL RECORD
[2024-01-16 16:40] LABS: Glucose, Whole Blood 247 mg/dL (60-115)
[2024-01-16 21:06] LABS: Glucose, Whole Blood 270 mg/dL (60-115)
[2024-01-17] VITALS (7 sets, daily range): BP systolic 120–170; BP diastolic 67–77; PULSE 56–72; RESP 14–18; TEMP 36.2–36.8; O2SAT 96–98
[2024-01-17] MEDS: dexAMETHasone sod phosphate 10 MG/ML VIAL IVPUSH ×2 (02:41→08:41)
[2024-01-17 08:19] LABS: Anion Gap 12 (12-20); Blood Urea Nitrogen 23 mg/dL (9-16); Calcium 8.2 mg/dL (8.4-10.2); Carbon Dioxide 23 mmol/L (22-29); Chloride 107 mmol/L (96-108); Creatinine Clr Calc Pharmacy 75.5; Estimated Glomerular Filt Rate > 60; Glucose Random 203 mg/dL (60-115); Magnesium 2.1 mg/dL (1.6-2.6); Potassium 3.7 mmol/L (3.3-5.1); Sodium 138 mmol/L (135-145)
[2024-01-17] MEDS: glipiZIDE XL 10 MG TAB.ER.24 PO (08:41)
[2024-01-17] MEDS: Finasteride 5 MG TABLET PO (08:41)
[2024-01-17] MEDS: Atorvastatin Calcium 10 MG TABLET PO (08:41)
[2024-01-17] MEDS: Tamsulosin HCL 0.4 MG CAPSULE 0.8 MG PO (08:41)
[2024-01-17] MEDS: amLODIPine Besylate 5 MG TABLET PO (08:41)
[2024-01-17] MEDS: Insulin Lispro 100 UNIT/ML 3 ML VIAL SUBCUT ×4 (08:42→21:06)
[2024-01-17] MEDS: 0.9 % Sodium Chloride Flush 3 ML SYRINGE IVFLUSH ×3 (08:42→21:07)
[2024-01-17] MEDS: cefTRIAXone sodium 2 GM VIAL IVPUSH (08:47)
[2024-01-17 09:04] LABS: Glucose, Whole Blood 268 mg/dL (60-115)
[2024-01-17 11:44] LABS: Glucose, Whole Blood 314 mg/dL (60-115)
[2024-01-17] MEDS: Apixaban 5 MG TABLET PO ×2 (11:59→23:58)
[2024-01-17] MEDS: Sotalol HCL 80 MG TABLET PO (12:15)
[2024-01-17 16:38] LABS: Glucose, Whole Blood 250 mg/dL (60-115)
[2024-01-17 20:38] LABS: Glucose, Whole Blood 264 mg/dL (60-115)
[2024-01-18 04:00] VITALS: BP 140/70; PULSE 61; RESP 16; O2SAT 98
[2024-01-18 07:30] LABS: Anion Gap 13 (12-20); Blood Urea Nitrogen 23 mg/dL (9-16); Calcium 8.4 mg/dL (8.4-10.2); Carbon Dioxide 24 mmol/L (22-29); Chloride 105 mmol/L (96-108); Creatinine Clr Calc Pharmacy 77.3; Estimated Glomerular Filt Rate > 60; Glucose Random 162 mg/dL (60-115); Magnesium 2.3 mg/dL (1.6-2.6); Potassium 3.5 mmol/L (3.3-5.1); Sodium 138 mmol/L (135-145)
[2024-01-18 07:31] LABS: Glucose, Whole Blood 173 mg/dL (60-115)
[2024-01-18 07:40] VITALS: BP 154/74; PULSE 57; RESP 20; TEMP 36.2; O2SAT 96
[2024-01-18] MEDS: glipiZIDE XL 10 MG TAB.ER.24 PO (08:41)
[2024-01-18] MEDS: Sotalol HCL 80 MG TABLET PO ×2 (08:41→20:33)
[2024-01-18] MEDS: Finasteride 5 MG TABLET PO (08:41)
[2024-01-18] MEDS: Apixaban 5 MG TABLET PO ×2 (08:41→20:32)
[2024-01-18] MEDS: Insulin Lispro 100 UNIT/ML 3 ML VIAL SUBCUT ×4 (08:41→20:34)
[2024-01-18] MEDS: Atorvastatin Calcium 10 MG TABLET PO (08:41)
[2024-01-18] MEDS: amLODIPine Besylate 5 MG TABLET PO (08:41)
[2024-01-18] MEDS: 0.9 % Sodium Chloride Flush 3 ML SYRINGE IVFLUSH ×2 (08:41→15:10)
[2024-01-18] MEDS: cefuroxime axetiL 500 MG TABLET PO ×2 (08:41→20:33)
[2024-01-18] MEDS: Tamsulosin HCL 0.4 MG CAPSULE 0.8 MG PO (08:41)
[2024-01-18 11:04] VITALS: BP 134/70; PULSE 52; RESP 20; TEMP 36.1; O2SAT 96
[2024-01-18 11:39] LABS: Glucose, Whole Blood 228 mg/dL (60-115)
--- NOTE | 2024-01-18 12:53 | MHC.CM.PN ---
Patient has been medically cleared for dc to home today, self care. IMM will be addressed today with Patient at bedside.
[2024-01-18 14:16] VITALS: BP 134/70; PULSE 52; O2SAT 96
--- NOTE | 2024-01-18 14:19 | HO.PM.IMPN ---
Subjective Subjective Date of Service: 01/18/24 Interval History: f/u on fever, BOLANOS, concern for meningitis no fever Physical Exam Vital Signs: Vital Signs: Last Vital Signs Temp 97.0 F 01/18/24 11:04 Pulse 52 01/18/24 11:04 Resp 20 01/18/24 11:04 BP 134/70 01/18/24 11:04 Pulse Ox 96 01/18/24 11:04 O2 Del Method Room Air 01/18/24 11:04 BMI result Body Mass Index 28.7 General: AO X 3, no acute distress Resp: CTA bilateral CVS: S1,S2,RRR GI: +BS, NT, no distention Skin: No rash Neuro: motor grossly intact Psych: appropriate affect Objective Data Active Medications Acetaminophen (Acetaminophen 325 Mg Tablet) 975 mg PO Q6H PRN PRN Reason: Pain, Mild (Pain Scale 1-3), fever or headache Amlodipine Besylate (Amlodipine Besylate 5 Mg Tablet) 5 mg PO DAILY COUNTS INCLUDE 234 BEDS AT THE [facility]; Protocol Last Admin: 01/18/24 08:41 Dose: 5 mg Documented By: SARAH Apixaban (Apixaban 5 Mg Tablet) 5 mg PO BID COUNTS INCLUDE 234 BEDS AT THE [facility] Last Admin: 01/18/24 08:41 Dose: 5 mg Documented By: SARAH Atorvastatin Calcium (Atorvastatin Calcium 10 Mg Tablet) 10 mg PO DAILY COUNTS INCLUDE 234 BEDS AT THE [facility] Last Admin: 01/18/24 08:41 Dose: 10 mg Documented By: SARAH Calcium Carbonate (Calcium Carbonate 750 Mg Tab.Chew) 750 mg PO Q4H PRN PRN Reason: Heartburn Cefuroxime Axetil (Cefuroxime Axetil 500 Mg Tablet) 500 mg PO BID COUNTS INCLUDE 234 BEDS AT THE [facility] Last Admin: 01/18/24 08:41 Dose: 500 mg Documented By: SARAH Finasteride (Finasteride 5 Mg Tablet) 5 mg PO DAILY COUNTS INCLUDE 234 BEDS AT THE [facility] Last Admin: 01/18/24 08:41 Dose: 5 mg Documented By: SARAH Glipizide (Glipizide Xl 10 Mg Tab.Er.24) 10 mg PO DAILY COUNTS INCLUDE 234 BEDS AT THE [facility] Last Admin: 01/18/24 08:41 Dose: 10 mg Documented By: SARAH Glucose (Glucose Gel 15 Gm Gel..Gram.) 15 gm PO Q15M PRN; Protocol PRN Reason: per Hypoglycemia Standing Ord. Dextrose (D10) 250 mls @ 750 mls/hr IV Q15M PRN; Protocol PRN Reason: per Hypoglycemia Standing Ord. Insulin Human Lispro (Insulin Lispro 100 Unit/Ml 3 Ml Vial) 0 unit SUBCUT QIDACHS COUNTS INCLUDE 234 BEDS AT THE [facility]; Protocol Last Admin: 01/18/24 12:11 Dose: 4 unit Documented By: SARAH Magnesium Hydroxide (Milk Of Magnesia 30 Ml Oral.Susp) 30 ml PO DAILY PRN PRN Reason: Constipation Melatonin (Melatonin 3 Mg Tablet) 6 mg PO BEDTIME PRN PRN Reason: Insomnia Ondansetron HCl (Ondansetron Hcl 4 Mg/2 Ml Vial) 4 mg IVPUSH Q8H PRN PRN Reason: Nausea and Vomiting Sodium Chloride (0.9 % Sodium Chloride Flush 3 Ml Syringe) 3 ml IVFLUSH QSHIFT COUNTS INCLUDE 234 BEDS AT THE [facility] Last Admin: 01/18/24 08:41 Dose: 3 ml Documented By: SARAH Sotalol HCl (Sotalol Hcl 80 Mg Tablet) 80 mg PO BID COUNTS INCLUDE 234 BEDS AT THE [facility] Last Admin: 01/18/24 08:41 Dose: 80 mg Documented By: SARAH Tamsulosin HCl (Tamsulosin Hcl 0.4 Mg Capsule) 0.8 mg PO DAILY COUNTS INCLUDE 234 BEDS AT THE [facility] Last Admin: 01/18/24 08:41 Dose: 0.8 mg Documented By: SARAH Valacyclovir HCl (Valacyclovir Hcl 1,000 Mg Tablet) 1,000 mg PO TID COUNTS INCLUDE 234 BEDS AT THE [facility] Labs 01/14/24 04:33 01/18/24 06:28 Labs: Laboratory Results - last 24 hr 01/17/24 01/17/24 01/18/24 16:25 20:34 06:28 Hold Purple Top SEE NOTE Anion Gap 13 Estim Creat Clear Calc 77.3 Estimated GFR > 60 POC Glucose 250 H 264 H Random Glucose 162 H Calcium 8.4 Magnesium 2.3 01/18/24 01/18/24 07:26 11:35 Hold Purple Top Anion Gap Estim Creat Clear Calc Estimated GFR POC Glucose 173 H 228 H Random Glucose Calcium Magnesium Assessment and Plan (1) Encephalitis: Status: Acute Plan The patient presented with headache and fever, raising concern for encephalitis. Unfortunately, a lumbar puncture (LP) could not be safely performed due to the patient?s use of Eliquis. Empiric treatment was initiated with IV antibiotics (vancomycin, ceftriaxone, and ampicillin) and dexamethasone for suspected meningitis. Peripheral blood cultures have remained negative. Infectious Disease (ID) consultation recommended adding acyclovir to the regimen and discontinuing vancomycin, ampicillin, and steroids if cultures remain negative. Despite resource limitations preventing an LP, the patient has made a rapid recovery with resolution of all symptoms. Based on the clinical picture, bacterial meningitis appears less likely, and viral encephalitis remains a possible diagnosis. ID advised completing a 14-day course of acyclovir and cefuroxime to cover for viral encephalitis and potential bacterial pathogens. HTN - resume home meds Norvasc, resume lisinopril at 10 daily AFib. Continue Sotalol. Eliquis on hold for possible LP, he had episode of bradycardia with no sinus pause usually while asleep, HR is up when awake and ambulatory and therefore continuing sotalol and to continue eliquis Type 2 diabetes mellitus. resume home meds metformin, glipizide, was having hyperglycemia d/t steroid use Hyperlipidemia. Continue statin. BPH. Continue tamsulosin and/or finesteride. Lovenox and if no LP done tomorrow will restart PT is recommending STR dvt prophyalxis: eliquis Quality Stroke Does the patient have a stroke diagnosis?: No VTE Prior VTE?: No VTE Risk Level:: Medical - moderate - high VTE Device Contraindication: Treatment Not Indicated VTE Drug Contraindication: N/A - Med Ordered
--- NOTE | 2024-01-18 14:21 | MHC.CM.PN ---
Per MD, plan has changed to STR. CM awaits PT Eval to send to referral sources and [employer] auth will be needed. CM will follow.
--- NOTE | 2024-01-18 14:44 | MHC.CM.PN ---
PT Eval has been sent to referrals. CM will follow.
[2024-01-18] MEDS: valACYclovir HCL 1,000 MG TABLET 1000 MG PO ×2 (15:09→20:33)
[2024-01-18 15:23] VITALS: BP 120/62; PULSE 56; RESP 16; TEMP 36.7; O2SAT 96
--- NOTE | 2024-01-18 15:50 | MHC.CM.PN ---
[facility] has offered a bed pending [employer] auth. CM met with Patient at bedside and he has accepted this bed offer. CM will follow.
[2024-01-18 16:33] LABS: Glucose, Whole Blood 225 mg/dL (60-115)
[2024-01-18 19:46] VITALS: BP 135/70; PULSE 57; RESP 18; TEMP 36.2; O2SAT 96
[2024-01-18 20:29] LABS: Glucose, Whole Blood 252 mg/dL (60-115)
[2024-01-19] VITALS (8 sets, daily range): BP systolic 125–142; BP diastolic 65–73; PULSE 53–69; RESP 16–18; TEMP 36.2–36.7; O2SAT 95–97
[2024-01-19 07:25] LABS: Glucose, Whole Blood 134 mg/dL (60-115)
[2024-01-19] MEDS: amLODIPine Besylate 5 MG TABLET PO ×2 (08:23→11:10)
[2024-01-19] MEDS: Finasteride 5 MG TABLET PO (08:23)
[2024-01-19] MEDS: Atorvastatin Calcium 10 MG TABLET PO (08:24)
[2024-01-19] MEDS: cefuroxime axetiL 500 MG TABLET PO ×2 (08:24→20:26)
[2024-01-19] MEDS: Sotalol HCL 80 MG TABLET PO ×2 (08:24→20:26)
[2024-01-19] MEDS: valACYclovir HCL 1,000 MG TABLET 1000 MG PO ×3 (08:24→20:26)
[2024-01-19] MEDS: Apixaban 5 MG TABLET PO ×2 (08:24→20:26)
[2024-01-19] MEDS: Tamsulosin HCL 0.4 MG CAPSULE 0.8 MG PO (08:24)
[2024-01-19] MEDS: glipiZIDE XL 10 MG TAB.ER.24 PO (08:24)
[2024-01-19] MEDS: 0.9 % Sodium Chloride Flush 3 ML SYRINGE IVFLUSH (08:25)
[2024-01-19 08:30] LABS: Anion Gap 10 (12-20); Blood Urea Nitrogen 26 mg/dL (9-16); Calcium 8.6 mg/dL (8.4-10.2); Carbon Dioxide 29 mmol/L (22-29); Chloride 103 mmol/L (96-108); Creatinine Clr Calc Pharmacy 64.8; Estimated Glomerular Filt Rate > 60; Glucose Random 141 mg/dL (60-115); Magnesium 2.4 mg/dL (1.6-2.6); Potassium 4.2 mmol/L (3.3-5.1); Sodium 138 mmol/L (135-145)
--- NOTE | 2024-01-19 09:44 | P.PNIM_ITS ---
Subjective Subjective Date of Service: 01/19/24 Interval History: f/u on fever, BOLANOS, concern for meningitis no fever, no headache Physical Exam 2 Vital Signs: Vital Signs: Last Vital Signs Temp 97.8 F 01/19/24 07:16 Pulse 53 01/19/24 07:16 Resp 17 01/19/24 07:16 BP 140/72 H 01/19/24 07:16 Pulse Ox 96 01/19/24 07:16 O2 Del Method Room Air 01/19/24 07:16 BMI result Body Mass Index 28.7 General: AO X 3, no acute distress Resp: CTA bilateral CVS: S1,S2,RRR GI: +BS, NT, no distention Skin: No rash Neuro: motor grossly intact Psych: appropriate affect Objective Data Active Medications Acetaminophen (Acetaminophen 325 Mg Tablet) 975 mg PO Q6H PRN PRN Reason: Pain, Mild (Pain Scale 1-3), fever or headache Amlodipine Besylate (Amlodipine Besylate 5 Mg Tablet) 5 mg PO DAILY [facility]; Protocol Last Admin: 01/19/24 08:23 Dose: 5 mg Documented By: SIM Apixaban (Apixaban 5 Mg Tablet) 5 mg PO BID [facility] Last Admin: 01/19/24 08:24 Dose: 5 mg Documented By: SIM Atorvastatin Calcium (Atorvastatin Calcium 10 Mg Tablet) 10 mg PO DAILY [facility] Last Admin: 01/19/24 08:24 Dose: 10 mg Documented By: SIM Calcium Carbonate (Calcium Carbonate 750 Mg Tab.Chew) 750 mg PO Q4H PRN PRN Reason: Heartburn Cefuroxime Axetil (Cefuroxime Axetil 500 Mg Tablet) 500 mg PO BID [facility] Last Admin: 01/19/24 08:24 Dose: 500 mg Documented By: SIM Finasteride (Finasteride 5 Mg Tablet) 5 mg PO DAILY [facility] Last Admin: 01/19/24 08:23 Dose: 5 mg Documented By: SIM Glipizide (Glipizide Xl 10 Mg Tab.Er.24) 10 mg PO DAILY [facility] Last Admin: 01/19/24 08:24 Dose: 10 mg Documented By: SIM Glucose (Glucose Gel 15 Gm Gel..Gram.) 15 gm PO Q15M PRN; Protocol PRN Reason: per Hypoglycemia Standing Ord. Dextrose (D10) 250 mls @ 750 mls/hr IV Q15M PRN; Protocol PRN Reason: per Hypoglycemia Standing Ord. Insulin Human Lispro (Insulin Lispro 100 Unit/Ml 3 Ml Vial) 0 unit SUBCUT QIDACHS [facility]; Protocol Last Admin: 01/19/24 07:28 Dose: Not Given Documented By: SIM Non-Admin Reason: No Insulin Coverage Magnesium Hydroxide (Milk Of Magnesia 30 Ml Oral.Susp) 30 ml PO DAILY PRN PRN Reason: Constipation Melatonin (Melatonin 3 Mg Tablet) 6 mg PO BEDTIME PRN PRN Reason: Insomnia Ondansetron HCl (Ondansetron Hcl 4 Mg/2 Ml Vial) 4 mg IVPUSH Q8H PRN PRN Reason: Nausea and Vomiting Sodium Chloride (0.9 % Sodium Chloride Flush 3 Ml Syringe) 3 ml IVFLUSH QSHIFT [facility] Last Admin: 01/19/24 08:25 Dose: 3 ml Documented By: SIM Sotalol HCl (Sotalol Hcl 80 Mg Tablet) 80 mg PO BID [facility] Last Admin: 01/19/24 08:24 Dose: 80 mg Documented By: SIM Tamsulosin HCl (Tamsulosin Hcl 0.4 Mg Capsule) 0.8 mg PO DAILY [facility] Last Admin: 01/19/24 08:24 Dose: 0.8 mg Documented By: SIM Valacyclovir HCl (Valacyclovir Hcl 1,000 Mg Tablet) 1,000 mg PO TID [facility] Last Admin: 01/19/24 08:24 Dose: 1,000 mg Documented By: SIM Labs 01/14/24 04:33 01/19/24 07:26 Labs: Laboratory Results - last 24 hr 01/18/24 01/18/24 01/18/24 11:35 16:29 20:25 Hold Purple Top Anion Gap Estim Creat Clear Calc Estimated GFR POC Glucose 228 H 225 H 252 H Random Glucose Calcium Magnesium 01/19/24 01/19/24 07:22 07:26 Hold Purple Top SEE NOTE Anion Gap 10 L Estim Creat Clear Calc 64.8 Estimated GFR > 60 POC Glucose 134 H Random Glucose 141 H Calcium 8.6 Magnesium 2.4 Microbiology Microbiology Results: Microbiology 01/14/24 00:54 Blood Culture - Final Blood - Venous No growth after 5 days. 01/14/24 00:28 Blood Culture - Final Blood - Venous No growth after 5 days. Assessment and Plan (1) Encephalitis: Status: Acute Plan The patient presented with headache and fever, raising concern for encephalitis. Unfortunately, a lumbar puncture (LP) could not be safely performed due to the patient?s use of Eliquis. Empiric treatment was initiated with IV antibiotics (vancomycin, ceftriaxone, and ampicillin) and dexamethasone for suspected meningitis. Peripheral blood cultures have remained negative. Infectious Disease (ID) consultation recommended adding acyclovir to the regimen and discontinuing vancomycin, ampicillin, and steroids if cultures remain negative. Despite resource limitations preventing an LP, the patient has made a rapid recovery with resolution of all symptoms. Based on the clinical picture, bacterial meningitis appears less likely, and viral encephalitis remains a possible diagnosis. ID advised completing a 14-day course of acyclovir (using Valacyclovir) and cefuroxime to cover for viral encephalitis and potential bacterial pathogens. HTN - Increase Norvasc to 10 and hold Lisinopril AFib. Continue Sotalol. Eliquis on hold for possible LP, he had episode of bradycardia with no sinus pause usually while asleep, HR is up when awake and ambulatory and therefore continuing sotalol and to continue eliquis Type 2 diabetes mellitus. resume home meds metformin, glipizide, was having hyperglycemia d/t steroid use Hyperlipidemia. Continue statin. BPH. Continue tamsulosin and/or finesteride. Lovenox and if no LP done tomorrow will restart PT is recommending STR dvt prophyalxis: eliquis Quality Stroke Does the patient have a stroke diagnosis?: No VTE Prior VTE?: No VTE Risk Level:: Medical - moderate - high VTE Device Contraindication: Treatment Not Indicated VTE Drug Contraindication: N/A - Med Ordered
[2024-01-19] MEDS: Insulin Lispro 100 UNIT/ML 3 ML VIAL SUBCUT ×3 (11:15→20:26)
[2024-01-19 11:16] LABS: Glucose, Whole Blood 222 mg/dL (60-115)
[2024-01-19 16:09] LABS: Glucose, Whole Blood 164 mg/dL (60-115)
[2024-01-19 20:15] LABS: Glucose, Whole Blood 215 mg/dL (60-115)
[2024-01-20 03:35] VITALS: BP 141/68; PULSE 57; RESP 17; TEMP 36.3; O2SAT 95
[2024-01-20 07:33] LABS: Anion Gap 14 (12-20); Blood Urea Nitrogen 24 mg/dL (9-16); Calcium 8.6 mg/dL (8.4-10.2); Carbon Dioxide 21 mmol/L (22-29); Chloride 105 mmol/L (96-108); Creatinine Clr Calc Pharmacy 71.3; Estimated Glomerular Filt Rate > 60; Glucose Random 136 mg/dL (60-115); Magnesium 2.6 mg/dL (1.6-2.6); Potassium 3.9 mmol/L (3.3-5.1); Sodium 136 mmol/L (135-145)
[2024-01-20 07:42] LABS: Glucose, Whole Blood 163 mg/dL (60-115)
[2024-01-20 08:00] VITALS: BP 144/71; PULSE 66; RESP 18; TEMP 36.8; O2SAT 98
[2024-01-20] MEDS: Tamsulosin HCL 0.4 MG CAPSULE 0.8 MG PO (08:03)
[2024-01-20] MEDS: amLODIPine Besylate 10 MG TABLET PO (08:03)
[2024-01-20] MEDS: valACYclovir HCL 1,000 MG TABLET 1000 MG PO ×3 (08:03→21:39)
[2024-01-20] MEDS: Sotalol HCL 80 MG TABLET PO ×2 (08:03→21:40)
[2024-01-20] MEDS: Atorvastatin Calcium 10 MG TABLET PO (08:03)
[2024-01-20] MEDS: Apixaban 5 MG TABLET PO ×2 (08:03→21:39)
[2024-01-20] MEDS: cefuroxime axetiL 500 MG TABLET PO ×2 (08:03→21:39)
[2024-01-20] MEDS: Insulin Lispro 100 UNIT/ML 3 ML VIAL SUBCUT ×3 (08:03→21:43)
[2024-01-20] MEDS: Finasteride 5 MG TABLET PO (08:03)
[2024-01-20] MEDS: glipiZIDE XL 10 MG TAB.ER.24 PO (08:03)
--- NOTE | 2024-01-20 09:15 | P.PNIM_ITS ---
Subjective Subjective Date of Service: 01/20/24 Interval History: f/u on fever, BOLANOS, concern for meningitis no fever, no headache. No arrythmia, awaiting rehab placement Physical Exam 2 Vital Signs: Vital Signs: Last Vital Signs Temp 98.2 F 01/20/24 08:00 Pulse 66 01/20/24 08:00 Resp 18 01/20/24 08:00 BP 144/71 H 01/20/24 08:00 Pulse Ox 98 01/20/24 08:00 O2 Del Method Room Air 01/20/24 08:00 BMI result Body Mass Index 28.7 Const: Other: General: AO X 3, no acute distress Resp: CTA bilateral CVS: S1,S2,RRR GI: +BS, NT, no distention Skin: No rash Neuro: motor grossly intact Psych: appropriate affect Objective Data Active Medications Acetaminophen (Acetaminophen 325 Mg Tablet) 975 mg PO Q6H PRN PRN Reason: Pain, Mild (Pain Scale 1-3), fever or headache Amlodipine Besylate (Amlodipine Besylate 10 Mg Tablet) 10 mg PO DAILY [facility]; Protocol Last Admin: 01/20/24 08:03 Dose: 10 mg Documented By: SIM Apixaban (Apixaban 5 Mg Tablet) 5 mg PO BID [facility] Last Admin: 01/20/24 08:03 Dose: 5 mg Documented By: SIM Atorvastatin Calcium (Atorvastatin Calcium 10 Mg Tablet) 10 mg PO DAILY [facility] Last Admin: 01/20/24 08:03 Dose: 10 mg Documented By: SIM Calcium Carbonate (Calcium Carbonate 750 Mg Tab.Chew) 750 mg PO Q4H PRN PRN Reason: Heartburn Cefuroxime Axetil (Cefuroxime Axetil 500 Mg Tablet) 500 mg PO BID [facility] Last Admin: 01/20/24 08:03 Dose: 500 mg Documented By: SIM Finasteride (Finasteride 5 Mg Tablet) 5 mg PO DAILY [facility] Last Admin: 01/20/24 08:03 Dose: 5 mg Documented By: SIM Glipizide (Glipizide Xl 10 Mg Tab.Er.24) 10 mg PO DAILY [facility] Last Admin: 01/20/24 08:03 Dose: 10 mg Documented By: SIM Glucose (Glucose Gel 15 Gm Gel..Gram.) 15 gm PO Q15M PRN; Protocol PRN Reason: per Hypoglycemia Standing Ord. Dextrose (D10) 250 mls @ 750 mls/hr IV Q15M PRN; Protocol PRN Reason: per Hypoglycemia Standing Ord. Insulin Human Lispro (Insulin Lispro 100 Unit/Ml 3 Ml Vial) 0 unit SUBCUT QIDACHS [facility]; Protocol Last Admin: 01/20/24 08:03 Dose: 2 unit Documented By: SIM Magnesium Hydroxide (Milk Of Magnesia 30 Ml Oral.Susp) 30 ml PO DAILY PRN PRN Reason: Constipation Melatonin (Melatonin 3 Mg Tablet) 6 mg PO BEDTIME PRN PRN Reason: Insomnia Ondansetron HCl (Ondansetron Hcl 4 Mg/2 Ml Vial) 4 mg IVPUSH Q8H PRN PRN Reason: Nausea and Vomiting Sodium Chloride (0.9 % Sodium Chloride Flush 3 Ml Syringe) 3 ml IVFLUSH QSHIFT [facility] Last Admin: 01/20/24 07:05 Dose: Not Given Documented By: SIM Non-Admin Reason: No Access Sotalol HCl (Sotalol Hcl 80 Mg Tablet) 80 mg PO BID [facility] Last Admin: 01/20/24 08:03 Dose: 80 mg Documented By: SIM Tamsulosin HCl (Tamsulosin Hcl 0.4 Mg Capsule) 0.8 mg PO DAILY [facility] Last Admin: 01/20/24 08:03 Dose: 0.8 mg Documented By: SIM Valacyclovir HCl (Valacyclovir Hcl 1,000 Mg Tablet) 1,000 mg PO TID [facility] Last Admin: 01/20/24 08:03 Dose: 1,000 mg Documented By: SIM Labs 01/14/24 04:33 01/20/24 06:17 Labs: Laboratory Results - last 24 hr 01/19/24 01/19/24 01/19/24 11:12 16:04 20:12 Anion Gap Estim Creat Clear Calc Estimated GFR POC Glucose 222 H 164 H 215 H Random Glucose Calcium Magnesium 01/20/24 01/20/24 06:17 07:36 Anion Gap 14 Estim Creat Clear Calc 71.3 Estimated GFR > 60 POC Glucose 163 H Random Glucose 136 H Calcium 8.6 Magnesium 2.6 Assessment and Plan (1) Encephalitis: Status: Acute Plan The patient presented with headache and fever, raising concern for encephalitis. Unfortunately, a lumbar puncture (LP) could not be safely performed due to the patient?s use of Eliquis. Empiric treatment was initiated with IV antibiotics (vancomycin, ceftriaxone, and ampicillin) and dexamethasone for suspected meningitis. Peripheral blood cultures have remained negative. Infectious Disease (ID) consultation recommended adding acyclovir to the regimen and discontinuing vancomycin, ampicillin, and steroids if cultures remain negative. Despite resource limitations preventing an LP, the patient has made a rapid recovery with resolution of all symptoms. Based on the clinical picture, bacterial meningitis appears less likely, and viral encephalitis remains a possible diagnosis. ID advised completing a 14-day course of acyclovir (using Valacyclovir) and cefuroxime to cover for viral encephalitis and potential bacterial pathogens. HTN - Increase Norvasc to 10 and hold Lisinopril AFib. Continue Sotalol. HR control -continue eliquis Type 2 diabetes mellitus. -continue glipizide and metformin Hyperlipidemia. Continue statin. BPH. Continue tamsulosin and/or finesteride. PT is recommending STR dvt prophyalxis: eliquis Transfer to med/surg while awaiting dc to rehab Quality Stroke Does the patient have a stroke diagnosis?: No VTE Prior VTE?: No VTE Risk Level:: Medical - moderate - high VTE Device Contraindication: Treatment Not Indicated VTE Drug Contraindication: N/A - Med Ordered
[2024-01-20] MEDS: metFORMIN HCl 1,000 MG TABLET 1000 MG PO ×2 (10:03→17:08)
[2024-01-20] MEDS: Milk of Magnesia 30 ML ORAL.SUSP PO (11:08)
[2024-01-20 11:55] LABS: Glucose, Whole Blood 252 mg/dL (60-115)
[2024-01-20 12:00] VITALS: BP 107/67; PULSE 66; RESP 18; TEMP 36.3; O2SAT 96
[2024-01-20 15:53] LABS: Glucose, Whole Blood 150 mg/dL (60-115)
[2024-01-20 16:00] VITALS: BP 122/64; PULSE 70; RESP 18; TEMP 36.4; O2SAT 95
[2024-01-20 20:00] VITALS: BP 120/60; PULSE 64; RESP 14; TEMP 36.5; O2SAT 96
[2024-01-20 21:14] LABS: Glucose, Whole Blood 183 mg/dL (60-115)
[2024-01-21] VITALS (8 sets, daily range): BP systolic 110–147; BP diastolic 58–72; PULSE 58–73; RESP 16–20; TEMP 36.2–37.2; O2SAT 96–99
[2024-01-21 07:05] LABS: Anion Gap 12 (12-20); Blood Urea Nitrogen 38 mg/dL (9-16); Calcium 8.5 mg/dL (8.4-10.2); Carbon Dioxide 25 mmol/L (22-29); Chloride 104 mmol/L (96-108); Creatinine Clr Calc Pharmacy 47.9; Estimated Glomerular Filt Rate 51; Glucose Random 139 mg/dL (60-115); Magnesium 2.6 mg/dL (1.6-2.6); Potassium 3.9 mmol/L (3.3-5.1); Sodium 137 mmol/L (135-145)
[2024-01-21 07:48] LABS: Glucose, Whole Blood 149 mg/dL (60-115)
[2024-01-21] MEDS: Finasteride 5 MG TABLET PO (09:42)
[2024-01-21] MEDS: Tamsulosin HCL 0.4 MG CAPSULE 0.8 MG PO (09:42)
[2024-01-21] MEDS: amLODIPine Besylate 10 MG TABLET PO (09:42)
[2024-01-21] MEDS: metFORMIN HCl 1,000 MG TABLET 1000 MG PO ×2 (09:42→16:46)
[2024-01-21] MEDS: Apixaban 5 MG TABLET PO ×2 (09:43→20:15)
[2024-01-21] MEDS: cefuroxime axetiL 500 MG TABLET PO ×2 (09:43→20:15)
[2024-01-21] MEDS: Sotalol HCL 80 MG TABLET PO ×2 (09:43→20:15)
[2024-01-21] MEDS: valACYclovir HCL 1,000 MG TABLET 1000 MG PO ×3 (09:43→20:15)
[2024-01-21] MEDS: Atorvastatin Calcium 10 MG TABLET PO (09:43)
[2024-01-21] MEDS: glipiZIDE XL 10 MG TAB.ER.24 PO (09:43)
--- NOTE | 2024-01-21 10:53 | P.PNIM_ITS ---
Subjective Subjective Date of Service: 01/21/24 Interval History: f/u on fever, BOLANOS, concern for meningitis no fever, no headache. No new issues Physical Exam 2 Vital Signs: Vital Signs: Last Vital Signs Temp 98.1 F 01/21/24 08:00 Pulse 65 01/21/24 08:00 Resp 18 01/21/24 08:00 BP 143/72 H 01/21/24 09:42 Pulse Ox 97 01/21/24 08:00 O2 Del Method Room Air 01/21/24 08:00 BMI result Body Mass Index 28.7 General: AO X 3, no acute distress Resp: CTA bilateral CVS: S1,S2,RRR GI: +BS, NT, no distention Skin: No rash Neuro: motor grossly intact Psych: appropriate affect Objective Data Active Medications Acetaminophen (Acetaminophen 325 Mg Tablet) 975 mg PO Q6H PRN PRN Reason: Pain, Mild (Pain Scale 1-3), fever or headache Amlodipine Besylate (Amlodipine Besylate 10 Mg Tablet) 10 mg PO DAILY [facility]; Protocol Last Admin: 01/21/24 09:42 Dose: 10 mg Documented By: JIMENA Apixaban (Apixaban 5 Mg Tablet) 5 mg PO BID [facility] Last Admin: 01/21/24 09:43 Dose: 5 mg Documented By: JIMENA Atorvastatin Calcium (Atorvastatin Calcium 10 Mg Tablet) 10 mg PO DAILY [facility] Last Admin: 01/21/24 09:43 Dose: 10 mg Documented By: JIMENA Calcium Carbonate (Calcium Carbonate 750 Mg Tab.Chew) 750 mg PO Q4H PRN PRN Reason: Heartburn Cefuroxime Axetil (Cefuroxime Axetil 500 Mg Tablet) 500 mg PO BID [facility] Last Admin: 01/21/24 09:43 Dose: 500 mg Documented By: JIMENA Finasteride (Finasteride 5 Mg Tablet) 5 mg PO DAILY [facility] Last Admin: 01/21/24 09:42 Dose: 5 mg Documented By: JIMENA Glipizide (Glipizide Xl 10 Mg Tab.Er.24) 10 mg PO DAILY [facility] Last Admin: 01/21/24 09:43 Dose: 10 mg Documented By: JIMENA Glucose (Glucose Gel 15 Gm Gel..Gram.) 15 gm PO Q15M PRN; Protocol PRN Reason: per Hypoglycemia Standing Ord. Dextrose (D10) 250 mls @ 750 mls/hr IV Q15M PRN; Protocol PRN Reason: per Hypoglycemia Standing Ord. Insulin Human Lispro (Insulin Lispro 100 Unit/Ml 3 Ml Vial) 0 unit SUBCUT QIDACHS [facility]; Protocol Last Admin: 01/21/24 07:51 Dose: Not Given Documented By: JIMENA Non-Admin Reason: No Insulin Coverage Magnesium Hydroxide (Milk Of Magnesia 30 Ml Oral.Susp) 30 ml PO DAILY PRN PRN Reason: Constipation Last Admin: 01/20/24 11:08 Dose: 30 ml Documented By: SIM Melatonin (Melatonin 3 Mg Tablet) 6 mg PO BEDTIME PRN PRN Reason: Insomnia Metformin HCl (Metformin Hcl 1,000 Mg Tablet) 1,000 mg PO BIDWM [facility] Last Admin: 01/21/24 09:42 Dose: 1,000 mg Documented By: JIMENA Ondansetron HCl (Ondansetron Hcl 4 Mg/2 Ml Vial) 4 mg IVPUSH Q8H PRN PRN Reason: Nausea and Vomiting Sodium Chloride (0.9 % Sodium Chloride Flush 3 Ml Syringe) 3 ml IVFLUSH QSHIFT [facility] Last Admin: 01/21/24 09:43 Dose: Not Given Documented By: JIMENA Non-Admin Reason: No Access Sotalol HCl (Sotalol Hcl 80 Mg Tablet) 80 mg PO BID [facility] Last Admin: 01/21/24 09:43 Dose: 80 mg Documented By: JIMENA Tamsulosin HCl (Tamsulosin Hcl 0.4 Mg Capsule) 0.8 mg PO DAILY [facility] Last Admin: 01/21/24 09:42 Dose: 0.8 mg Documented By: JIMENA Valacyclovir HCl (Valacyclovir Hcl 1,000 Mg Tablet) 1,000 mg PO TID [facility] Last Admin: 01/21/24 09:43 Dose: 1,000 mg Documented By: JIMENA Labs 01/14/24 04:33 01/21/24 05:51 Labs: Laboratory Results - last 24 hr 01/20/24 01/20/24 01/20/24 11:52 15:49 21:10 Anion Gap Estim Creat Clear Calc Estimated GFR POC Glucose 252 H 150 H 183 H Random Glucose Calcium Magnesium 01/21/24 01/21/24 05:51 07:44 Anion Gap 12 Estim Creat Clear Calc 47.9 Estimated GFR 51 POC Glucose 149 H Random Glucose 139 H Calcium 8.5 Magnesium 2.6 Assessment and Plan (1) Encephalitis: Status: Acute Plan The patient presented with headache and fever, raising concern for encephalitis. Unfortunately, a lumbar puncture (LP) could not be safely performed due to the patient?s use of Eliquis. Empiric treatment was initiated with IV antibiotics (vancomycin, ceftriaxone, and ampicillin) and dexamethasone for suspected meningitis. Peripheral blood cultures have remained negative. Infectious Disease (ID) consultation recommended adding acyclovir to the regimen and discontinuing vancomycin, ampicillin, and steroids if cultures remain negative. Despite resource limitations preventing an LP, the patient has made a rapid recovery with resolution of all symptoms. Based on the clinical picture, bacterial meningitis appears less likely, and viral encephalitis remains a possible diagnosis. ID advised completing a 14-day course of acyclovir (using Valacyclovir) and cefuroxime to cover for viral encephalitis and potential bacterial pathogens. HTN - Norvasc 10 mg. Stop lisinopril AFib. Continue Sotalol. HR control -continue eliquis Type 2 diabetes mellitus. -continue glipizide and metformin Hyperlipidemia. Continue statin. BPH. Continue tamsulosin and/or finesteride. PT is recommending STR dvt prophyalxis: eliquis Awaiting dc to STR Quality Stroke Does the patient have a stroke diagnosis?: No VTE Prior VTE?: No VTE Risk Level:: Medical - moderate - high VTE Device Contraindication: Treatment Not Indicated VTE Drug Contraindication: N/A - Med Ordered
[2024-01-21 12:00] LABS: Glucose, Whole Blood 215 mg/dL (60-115)
[2024-01-21] MEDS: Insulin Lispro 100 UNIT/ML 3 ML VIAL SUBCUT ×2 (12:47→20:15)
[2024-01-21 16:33] LABS: Glucose, Whole Blood 151 mg/dL (60-115)
[2024-01-21 19:57] LABS: Glucose, Whole Blood 154 mg/dL (60-115)
[2024-01-22 03:10] VITALS: BP 145/70; PULSE 69; RESP 20; TEMP 36.6; O2SAT 94
[2024-01-22 07:06] VITALS: BP 122/62; PULSE 63; RESP 18; TEMP 36.7; O2SAT 96
[2024-01-22 07:23] LABS: Glucose, Whole Blood 149 mg/dL (60-115)
[2024-01-22] MEDS: metFORMIN HCl 1,000 MG TABLET 1000 MG PO (07:57)
[2024-01-22] MEDS: valACYclovir HCL 1,000 MG TABLET 1000 MG PO (07:57)
[2024-01-22] MEDS: amLODIPine Besylate 10 MG TABLET PO (07:58)
[2024-01-22] MEDS: glipiZIDE XL 10 MG TAB.ER.24 PO (07:58)
[2024-01-22] MEDS: cefuroxime axetiL 500 MG TABLET PO (07:58)
[2024-01-22] MEDS: Sotalol HCL 80 MG TABLET PO (07:58)
[2024-01-22] MEDS: Finasteride 5 MG TABLET PO (07:58)
[2024-01-22] MEDS: Atorvastatin Calcium 10 MG TABLET PO (07:58)
[2024-01-22] MEDS: Tamsulosin HCL 0.4 MG CAPSULE 0.8 MG PO (07:58)
[2024-01-22] MEDS: Apixaban 5 MG TABLET PO (07:58)
--- NOTE | 2024-01-22 09:45 | MHC.CM.PN ---
Patient has been medically cleared for dc to snf/str today.Patient will dc to [facility] today at 1 PM, via [facility]. CM met with Patient at bedside and addressed IMM with him (original was given to Patient and a copy has been placed on the chart). CM spoke with /HCP/Mendy @ [phone] and informed her of the dc plan.
--- NOTE | 2024-01-22 10:11 | P.DS_ITS ---
DS: Providers Provider Date of Service: 01/22/24 Date of admission: 01/14/24 02:20 Date of discharge: 01/22/24 Primary care physician: Ruben Paul DO, MD Consults: 01/14/24 02:46 Consult to Infectious Diseases Routine Consulting Provider: [facility] [place] [facility] Reason for consultation: headache, fever, suspecting meningitis Has provider been notified: No DS: Diagnosis Discharge Diagnosis (1) Encephalitis: Status: Resolved DS: Summary Hospital Course Hospital Course: admission hpi Chief Complaint: Headache Katina Stephens is 83 years old man with past medical history significant for AFib on Eliquis, essential hypertension and type 2 diabetes mellitus presents to the ED complaining of 1-week history of frontal headache associated with nausea and soft stools. He underwent a dental procedure (left upper teeth) about 10 days ago. He took a course of amoxicillin for 7 days. He denied any event of vomiting, neck pain, sore throat, cough, chest pain, abdominal pain or shortness on breath. He did not report any acute visual disturbances, focal weakness or speech difficulty. He did not report any acute urinary symptoms. HPI was somewhat limited as the patient was very uncomfortable due to headache. In the ED, he was found to have fever of 103. There is no tachycardia or hypotension. Oxygen saturation is normal on room air. Blood workup showed no leukocytosis or lactic acidosis. Hemoglobin is 12.1 and platelets 228. Electrolytes are normal. BUN is 19 and creatinine 1.09. Glucose 156. LFTs and lipase are normal. CRP is 3.49, BNP 164 and troponin 4.8. Urinalysis did not showed evidence of UTI but there is positive ketones. Viral testing for COVID- 19, influenza and RSV is negative. Head CT scan showed no acute intracranial abnormality. Head and neck CTA showed no intracranial large vessel occlusion or stenosis. CXR showed no focal lung consolidation pleural effusion on infiltrates. Chest CT obtained and results are pending. ECG showed normal sinus rhythm without ischemic changes. ED tx: Tylenol 2 g IV, Benadryl 25 mg IV, Reglan 10 mg IV, morphine 2 mg IV, ceftriaxone 2 g IV, azithromycin 500 mg IV, ampicillin 2 g IV, vancomycin, Valtrex 1 g PO, dexamethasone 10 g IV, NS 1 L bolus hospital course: The patient presented with headache and fever, raising concern for encephalitis. Unfortunately, a lumbar puncture (LP) could not be safely performed due to the patient?s use of Eliquis. Empiric treatment was initiated with IV antibiotics (vancomycin, ceftriaxone, and ampicillin) and dexamethasone for suspected meningitis. Peripheral blood cultures have remained negative. Infectious Disease (ID) consultation recommended adding acyclovir to the regimen and discontinuing vancomycin, ampicillin, and steroids if cultures remain negative. Despite resource limitations preventing an LP, the patient has made a rapid recovery with resolution of all symptoms. Based on the clinical picture, bacterial meningitis appears less likely, and viral encephalitis remains a possible diagnosis. ID advised completing a 14-day course of acyclovir and cefuroxime to cover for viral encephalitis and potential bacterial pathogens. HTN - BP med changed with Norvasc increase to 10 and Lisinopril stopped AFib. Continue Sotalol. Eliquis on hold for possible LP, he had episode of bradycardia with no sinus pause usually while asleep, HR is up when awake and ambulatory and therefore continuing sotalol and to continue eliquis Type 2 diabetes mellitus. resume home meds metformin, glipizide, was having hyperglycemia d/t steroid use Hyperlipidemia. Continue statin. BPH. Continue tamsulosin and/or finesteride. Lovenox and if no LP done tomorrow will restart Time Attestation Discharge Coordination Time (in mins): 40 Quality: Safe Use of Opioids Does Pt have an Active Cancer Diagnosis on the Problem List?: No Quality: Stroke Does the patient have a stroke diagnosis?: No Physical Exam Vital Signs: Vital Signs: Selected Entries 01/22/24 07:06 Temperature 98.0 F Pulse Rate 63 Respiratory Rate 18 Blood Pressure 122/62 Pulse Oximetry 96 Oxygen Delivery Me thod Room Air General: AO X 3, no acute distress Resp: CTA bilateral CVS: S1,S2,RRR GI: +BS, NT, no distention Skin: No rash Neuro: motor grossly intact Psych: appropriate affect DS: Data Data Completed and Pending Labs on day of discharge: Laboratory Results - last 24 hr 01/17/24 01/17/24 01/18/24 16:25 20:34 06:28 Hold Purple Top SEE NOTE Sodium 138 Potassium 3.5 Chloride 105 Carbon Dioxide 24 Anion Gap 13 BUN 23 H Creatinine 0.83 Estim Creat Clear Calc 77.3 Estimated GFR > 60 POC Glucose 250 H 264 H Random Glucose 162 H Calcium 8.4 Magnesium 2.3 01/18/24 01/18/24 07:26 11:35 Hold Purple Top Sodium Potassium Chloride Carbon Dioxide Anion Gap BUN Creatinine Estim Creat Clear Calc Estimated GFR POC Glucose 173 H 228 H Random Glucose Calcium Magnesium Preliminary micro results at discharge 01/14/24 00:54 Blood Culture - Preliminary Blood - Venous No growth after 48 hours. 01/14/24 00:28 Blood Culture - Preliminary Blood - Venous No growth after 48 hours. Discharge Plan Discharge Anticipated Discharge Date/Time: 01/22/24 09:55 Patient Disposition: Xfer SNF Discharge Diagnosis: Encephalitis, headache, and fever. Referrals: [facility] [Outside] - 1 Week Ruben Paul DO, MD [Primary Care Provider] - 1 Week Discharge Medications: Jovani (MARCE) david Robledo See Rx Instructions .Route Qty: 1 0RF Rx Instructions: As directed valacyclovir 1 gram Tablet 1,000 mg PO TID Qty: 18 0RF cefuroxime axetil 500 mg Tablet 500 mg PO BID Qty: 12 0RF amlodipine 10 mg Tablet 10 mg PO DAILY Qty: 90 0RF Protocol: Hold for SBP< HOLD for SBP < : 90 Continued sotalol 80 mg tablet 80 mg PO BID metformin 1,000 mg tablet 1,000 mg PO BID glipizide 10 mg tablet extended release 24hr 10 mg PO DAILY simvastatin 20 mg tablet 20 mg PO BEDTIME tamsulosin 0.4 mg capsule 0.8 mg PO DAILY finasteride 5 mg tablet 5 mg PO DAILY Eliquis 5 mg tablet 5 mg PO BID Discontinued amlodipine 5 mg tablet 5 mg PO DAILY lisinopril 20 mg tablet 20 mg PO BID Discharge Orders: Discharge Order (Routine); Ordered 01/22/24 Ordered By: Gagan Petersen Diet: Advance to usual diet Activity on Discharge: As tolerated Stand Alone Forms: Patient Portal Discharge page Print Language: Amharic Care Plan Goals: recovery from encephalitis, fever and headache Health Concerns: See above Plan of Treatment: Take valacyclovir and Cefuroxime as recommended and follow up with your doctor in a week, call for appointment Assessment: see above Discharge Date/Time: 01/22/24 12:57
[2024-01-22 10:53] VITALS: BP 119/58; PULSE 68; RESP 18; TEMP 36.4; O2SAT 96
[2024-01-22 11:15] LABS: Glucose, Whole Blood 212 mg/dL (60-115)
[2024-01-22] MEDS: Insulin Lispro 100 UNIT/ML 3 ML VIAL SUBCUT (12:02)
== END 2024-01-22 12:57 | disposition skilled nursing facility (03) | DRG 99 ==
LOC: HO.ED 16:07 → HO.EDOVER 01-14 03:07 → HO.IMC 01-15 13:37
PROVIDERS: Emergency Medicine; Physician Assistant Medical; Admitting Provider Internal Medicine; Emergency Provider Internal Medicine; PCP Internal Medicine; Visit Provider Internal Medicine
DX: A86 Unspecified viral encephalitis (principal); I48.0 Paroxysmal atrial fibrillation; D64.9 Anemia, unspecified; E11.65 Type 2 diabetes mellitus with hyperglycemia; E78.5 Hyperlipidemia, unspecified; R00.1 Bradycardia, unspecified; N40.0 Benign prostatic hyperplasia without lower urinary tract symptoms; Z20.822 Contact with and (suspected) exposure to COVID-19; Z87.891 Personal history of nicotine dependence; Z79.01 Long term (current) use of anticoagulants; Z79.84 Long term (current) use of oral hypoglycemic drugs; Z79.899 Other long term (current) drug therapy
CPT/HCPCS: 0241U; 36415; 70450; 70496; 70498; 71045; 71250; 80048; 80053; 80076; 80202; 81003; 82375; 82947; 83605; 83690; 83735; 83880; 84484; 85025; 85652; 86140; 87040; 87633; 93005; 97116; 97161; 99285; J0131; J0133; J0290; J0456; J0696; J1100; J1650; J1885; J2270; J3370; J7120; Q9967

== ENCOUNTER → 2024-01-13 15:14 | Outpatient (BNV) | payer MEDICARE, SELFPAY | PROVIDERS: Admitting Provider Internal Medicine; Emergency Provider Internal Medicine; PCP Internal Medicine; Visit Provider Internal Medicine Cardiovascular Disease | DX: R53.1 Weakness (principal) | CPT/HCPCS: 93010 ==

== ENCOUNTER → 2024-01-13 16:01 | Outpatient (BNV) | payer MEDICARE, SELFPAY | PROVIDERS: Emergency Provider Internal Medicine; PCP Internal Medicine; Visit Provider Internal Medicine | DX: G04.90 Encephalitis and encephalomyelitis, unspecified (principal) | CPT/HCPCS: 99232 ==

== ENCOUNTER → 2024-01-14 02:20 | Outpatient (BNV) | payer MEDICARE, SELFPAY | PROVIDERS: Admitting Provider Internal Medicine; Emergency Provider Internal Medicine; PCP Internal Medicine; Visit Provider Internal Medicine | DX: R50.9 Fever, unspecified (principal); R51.9 Headache, unspecified; S09.90XA Unspecified injury of head, initial encounter | CPT/HCPCS: 99222 ==

== ENCOUNTER 2024-03-26 04:04 | Emergency (ER) | payer MEDICARE, SELFPAY ==
[2024-03-26 04:11] VITALS: BP 155/98; PULSE 85; RESP 18; TEMP 37.2; O2SAT 100; BMI 28.7
[2024-03-26 06:20] VITALS: BP 140/77; PULSE 85; RESP 20; O2SAT 98
--- NOTE | 2024-03-26 06:28 | ED.MALEGU ---
HPI - Male Genitourinary General Chief complaint: Urogenital-Male Stated complaint: catheter is bent Time Seen by Provider: 03/26/24 06:27 Source: patient, family, RN notes reviewed and old records reviewed Mode of arrival: ambulatory Limitations: no limitations History of Present Illness ED Provider: Amarilys RIVERA Narrative: Patient is an 84-year-old male with history of BPH, T2DM, HTN, paroxysmal afib on Eliquis, HLD presenting to the emergency deparment complaining of suprapubic pain and pressure, states his indwelling urinary catheter has not been draining since 9pm last night. States that he had the catheter changed out by urology last week. Denies noting any blood or clots in his drainage bag. Bladder scan in triage showed 520mLs. Denies fevers, nausea, vomiting, diarrhea. MD Complaint: other Onset (ago): hour(s) Location: abdomen Severity: severe Quality: aching Context: indwelling catheter Related Data Home Medications ?Medication ?Instructions ?Recorded ?Confirmed apixaban 5 mg tablet (Eliquis) 5 mg PO BID 09/11/23 01/14/24 finasteride 5 mg tablet 5 mg PO DAILY 09/11/23 01/14/24 glipizide 10 mg tablet, extended 10 mg PO DAILY 09/11/23 01/14/24 release 24 hr metformin 1,000 mg tablet 1,000 mg PO BID 09/11/23 01/14/24 simvastatin 20 mg tablet 20 mg PO BEDTIME 09/11/23 01/14/24 tamsulosin 0.4 mg capsule 0.8 mg PO DAILY 09/11/23 01/14/24 sotalol 80 mg tablet 80 mg PO BID 01/14/24 01/14/24 Previous Rx's ?Medication ?Instructions ?Recorded walker #1 ea 01/18/24 amlodipine 10 mg tablet 10 mg PO DAILY #90 tabs 01/22/24 cefuroxime axetil 500 mg tablet 500 mg PO BID #12 tabs 01/22/24 valacyclovir 1 gram tablet 1,000 mg PO TID #18 tabs 01/22/24 cefuroxime axetil 500 mg tablet 500 mg PO BID #20 tabs 03/26/24 Allergies Allergy/AdvReac Type Severity Reaction Status Date / Time No Known Allergies Allergy Verified 03/26/24 04:14 Review of Systems Review of Systems: As per HPI Yes all other systems are reviewed and are negative Constitutional: Constitutional: Reports as per HPI [facility] Past Medical History Medical History (Updated 03/26/24 @ 08:43 by Daniella Panda NP) BPH (benign prostatic hyperplasia) Type 2 diabetes mellitus Hyperlipidemia Paroxysmal atrial fibrillation Essential hypertension Social History Social History Household Members: Spouse Housing: House Do you presently have visiting nurse or other home services: No Patient Tobacco Use Status: Former Tobacco user Tobacco use type: Cigarette Smoked in Last 30 Days: No Second Hand Smoke Exposure: No Use of substances other than those prescribed or required for medical reasons: No Advance Directives: Yes Advance Directives on File: No Do you have a plan to hurt others: No Plan service: Yes Physical Exam Vital Signs: Vital Signs: Last Vital Signs Temp 98.1 F 03/26/24 06:41 Pulse 80 03/26/24 06:41 Resp 14 03/26/24 06:41 BP 127/56 L 03/26/24 06:41 Pulse Ox 96 03/26/24 06:41 O2 Del Method Room Air 03/26/24 06:41 BMI result Body Mass Index 28.7 Vital signs have been reviewed and appear to be correct. Blood pressure normal. Heart rate normal. Respiratory rate normal. Temperature normal. Oxygen saturation normal. Const: General: cooperative, healthy appearing and no acute distress Orientation/consciousness: oriented to person, oriented to place, oriented to time and patient oriented x3 Limitations: no limitations HEENT: Head: Yes normocephalic and Yes atraumatic Ears: external ears normal General nose exam: Normal external nose present Face and sinus: Yes face symmetric Mouth: oropharynx normal and moist mucous membranes Throat: Yes uvula midline Eyes: Pupils: Equal, round and reactive pupils present Neck: Neck: Yes normal visual inspection and Yes supple Resp: Effort & Inspection: normal respiratory effort and able to speak in complete sentences Auscultation: clear to auscultation bilaterally Cardio: Rate: regular rate Rhythm: regular rhythm Heart sounds: S1 normal heart sound present and S2 normal heart sound present GI: Palpation (GI): Soft to palpation and Tenderness to palpation present (GI) suprapubicly Auscultation: normoactive bowel sounds : General: Yes no CVA tenderness Back/Spine/Pelvis: Back: no CVA tenderness Skin: General skin exam: elasticity normal and turgor normal Neuro: General: oriented to person, oriented to place, oriented to time, patient oriented x3, moves all extremities, no focal motor deficits and CN's II-XI intact bilaterally Cranial nerves: Yes Equal, round and reactive pupils present Cognition (Neuro): normal cognition Extrem: General: Yes full ROM, Yes no pedal edema and Yes no calf tenderness Psych: Mental Status: mental status grossly normal Affect: normal affect Thought process: Normal thought process present Medical Decision Making Medical Decision Making [facility] Narrative: Patient is an 84-year-old male with history of BPH, T2DM, HTN, paroxysmal afib on Eliquis, HLD presenting to the emergency deparment complaining of suprapubic pain and pressure, states his indwelling urinary catheter has not been draining since 9pm last night. On exam patient is awake, A+Ox3, VS WNL, afebrile, normal neurological exam without focal deficits, physical exam findings as above. Given reported symptoms and physical exam findings, initial differential includes but is not limited to urinary retention, UTI/pyelonephritis, hydronephrosis, DRE. Labs notable for no leukocytosis, no evidence of DRE. UA notable for 3+ leukocytes, positive nitrites, 3+ blood, >50 WBCs, 4+ bacteria. Indwelling urinary catheter replaced and is now draining without incident, initial output approximately 1L. Feel patient is stable for discharge home on antibiotics, follow up with his urologist, Dr. Carranza at [facility]. Patient and in agreement with this plan. Return precautions discussed at bedside. Differential Diagnosis Differential Diagnoses: The differential diagnosis associated with the presentation includes As per [facility] Admission/Observation Consideration of admission/observation: Escalation of care including admission/observation considered Patient would have been admitted to the hospital had their work up had any findings where hospital admission was appropriate and their clinical presentation warranted hospital admission. Lab Data [facility] Lab Attestation statement: I reviewed the patient's lab results. 03/26/24 08:07 03/26/24 08:07 Labs: Lab Results 03/26/24 Range/Units 08:07 WBC 6.4 (4.8-10.8) X10*3/uL RBC 3.51 L (4.60-5.80) X10*6/uL Hgb 11.5 L (14.0-18.0) g/dl Hct 33.2 L (42.0-52.0) % MCV 94.6 (80.0-98.0) fL MCH 32.8 (27.0-33.0) pg MCHC 34.6 (31.0-36.0) g/dl RDW 13.8 (11.0-16.0) % Plt Count 233 (160-400) X10*3/uL MPV 9.3 L (9.4-12.4) fL Immature Gran % (Auto) 0.3 (0.0-0.4) % Neut % (Auto) 87.7 H (45-73) % Lymph % (Auto) 5.9 L (20-40) % [place] % (Auto) 5.3 (2-11) % Eos % (Auto) 0.6 (0-4) % Baso % (Auto) 0.2 (0-2) % Lymph # (Auto) 0.4 L (1.2-4.9) X10*3/uL [place] # (Auto) 0.3 (0.1-1.2) X10*3/uL Eos # (Auto) 0.0 (0.0-0.4) X10*3/uL Baso # (Auto) 0.0 (0.0-0.2) X10*3/uL Abs Immat Gran (auto) 0.02 (0.00-0.03) X10*3/uL Absolute Neuts (auto) 5.6 (2.0-8.3) x10*3/uL Absolute Nucleated RBC 0.000 (0.0-0.012) X10*3/uL Nucleated RBC % (auto) 0.0 (0.0-0.2) /100WBC PT 13.9 H (10.9-12.4) SEC INR 1.2 H (0.9-1.1) Sodium 141 (135-145) mmol/L Potassium 4.1 (3.3-5.1) mmol/L Chloride 110 H (96-108) mmol/L Carbon Dioxide 22 (22-29) mmol/L Anion Gap 13 (12-20) BUN 18 H (9-16) mg/dL Creatinine 1.15 (0.5-1.4) mg/dL Estim Creat Clear Calc 50.0 Estimated GFR > 60 Random Glucose 184 H (60-115) mg/dL Calcium 9.4 D (8.4-10.2) mg/dL Total Bilirubin 1.0 (0.0-1.0) mg/dL AST 20 (5-37) U/L ALT 16 (0-40) U/L Alkaline Phosphatase 72 (39-117) U/L Total Protein 6.7 (6.5-8.0) g/dL Albumin 3.9 (3.5-5.0) g/dL Urine Color Yellow Urine Appearance Turbid Urine pH 6.0 (5.0-9.0) Ur Specific [place] 1.015 (1.005-1.025) Urine Protein 30 (1+) H (Neg-Trace) mg/dL Urine Glucose (UA) Negative (Negative) mg/dL Urine Ketones Negative (Negative) mg/dL Urine Blood Large (3+) H (Negative) Urine Nitrite Positive H (Negative) Ur Leukocyte Esterase Large (3+) H (Negative) Urine RBC >20 H (0-2) /HPF Urine WBC >50 H (0-5) /HPF Ur Squamous Epith Cells 0-2 (0-2) /HPF Urine Bacteria 4+ (None Seen) Hyaline Casts 0-2 (0-2) /LPF Independent Historian Clinical information obtained from an independent historian. History obtained from or confirmed by: Spouse External Record Review External record reviewed: Inpatient record, Office record and Outpatient record Prescription Management I considered prescription management with: Antibiotic Discharge Plan Discharge Clinical Impression: Acute urinary retention, Acute UTI Patient Disposition: Home, Self-Care Instructions: Urinary Tract Infection in Men (DC), Still Catheter Placement and Care (ED), Catheter-associated Urinary Tract Infection (ED) Additional Instructions: You have been evaluated in the emergency department today for your urinary symptoms. Your evaluation, including urinalysis, suggests that your symptoms are due to urinary tract infection. Your catheter was changed out in the ED today and is now draining normally. Please take your prescribed antibiotics for the full course of medication as directed. Please follow-up with your primary care provider and urologist within 2 days. Return to the emergency department if you experience fevers 100.4? F or greater, worsening or uncontrolled pain, vomiting, flank pain, or for any other concerning symptoms. Prescriptions: New cefuroxime axetil 500 mg tablet 500 mg PO BID Qty: 20 0RF No Action sotalol 80 mg tablet 80 mg PO BID (DME) david Robledo See Rx Instructions .Route Qty: 1 0RF Rx Instructions: As directed valacyclovir 1 gram Tablet 1,000 mg PO TID Qty: 18 0RF cefuroxime axetil 500 mg Tablet 500 mg PO BID Qty: 12 0RF amlodipine 10 mg Tablet 10 mg PO DAILY Qty: 90 0RF Protocol: Hold for SBP< HOLD for SBP < : 90 metformin 1,000 mg tablet 1,000 mg PO BID glipizide 10 mg tablet extended release 24hr 10 mg PO DAILY simvastatin 20 mg tablet 20 mg PO BEDTIME tamsulosin 0.4 mg capsule 0.8 mg PO DAILY finasteride 5 mg tablet 5 mg PO DAILY Eliquis 5 mg tablet 5 mg PO BID Referrals: Isai Carranza MD [Physician] - 2 days Print Language: Arabic
[2024-03-26 06:41] VITALS: BP 127/56; PULSE 80; RESP 14; TEMP 36.7; O2SAT 96
[2024-03-26 08:13] LABS: MANUAL DIFF FLAG NO
[2024-03-26 08:16] LABS: Appearance Urine Turbid; Color Urine Yellow; Glucose Urine UA Negative (Negative); Leukocyte Esterase Urine Large (3+) (Negative); Nitrite Urine Positive (Negative); Specific Gravity - Urine 1.015 (1.005-1.025); UMIC TRIGGER UACC YES; Urine Blood Large (3+) (Negative); Urine Ketones Negative (Negative); Urine Protein 30 (1+) mg/dL (Neg-Trace)
[2024-03-26 08:18] LABS: Basophils Percent Auto 0.2 % (0-2); Eosinophils Percent Auto 0.6 % (0-4); Hematocrit 33.2 % (42.0-52.0); Hemoglobin 11.5 g/dl (14.0-18.0); Imm Gran Abs Auto 0.02 X10*3/uL (0.00-0.03); Imm Gran Pct Auto 0.3 % (0.0-0.4); Lymphocytes Absolute Auto 0.4 X10*3/uL (1.2-4.9); Lymphocytes Percent Auto 5.9 % (20-40); Mean Corpuscular HGB Conc 34.6 g/dl (31.0-36.0); Mean Corpuscular Hemoglobin 32.8 pg (27.0-33.0); Mean Corpuscular Volume 94.6 fL (80.0-98.0); Mean Platelet Volume 9.3 fL (9.4-12.4); Monocytes Absolute Auto 0.3 X10*3/uL (0.1-1.2); Monocytes Percent Auto 5.3 % (2-11); Neutrophils Absolute Auto 5.6 x10*3/uL (2.0-8.3); Neutrophils Percent Auto 87.7 % (45-73); Platelet Count 233 X10*3/uL (160-400); Red Blood Count 3.51 X10*6/uL (4.60-5.80); Red Cell Distribution Width 13.8 % (11.0-16.0); White Blood Count 6.4 X10*3/uL (4.8-10.8)
[2024-03-26 08:21] LABS: Bacteria Urine 4+ (None Seen); Hyaline Casts Urine 0-2 /LPF (0-2); RBC Urine >20 /HPF (0-2); Squamous Epithelial Cell Urine 0-2 /HPF (0-2); UACC Culture Trigger YES; WBC Urine >50 /HPF (0-5)
[2024-03-26 08:25] LABS: INTERNATIONAL NORM RATIO 1.2 (0.9-1.1); Prothrombin Time 13.9 SEC (10.9-12.4)
[2024-03-26 08:36] LABS: Alanine Aminotransferase 16 U/L (0-40); Albumin Level 3.9 g/dL (3.5-5.0); Alkaline Phosphatase 72 U/L (39-117); Anion Gap 13 (12-20); Aspartate Amino Transferase 20 U/L (5-37); Blood Urea Nitrogen 18 mg/dL (9-16); Calcium 9.4 mg/dL (8.4-10.2); Carbon Dioxide 22 mmol/L (22-29); Chloride 110 mmol/L (96-108); Estimated Glomerular Filt Rate > 60; Glucose Random 184 mg/dL (60-115); Potassium 4.1 mmol/L (3.3-5.1); Sodium 141 mmol/L (135-145); Total Protein 6.7 g/dL (6.5-8.0)
[2024-03-26 08:57] VITALS: BP 121/54; PULSE 76; RESP 16; TEMP 37.1; O2SAT 98
[2024-03-26 09:10] VITALS: BP 121/54; PULSE 76; RESP 16; TEMP 37.1; O2SAT 98
== END 2024-03-26 09:11 | disposition home or self-care (01) ==
PROVIDERS: Registered Nurse Emergency; Emergency Provider Emergency Medicine; PCP Internal Medicine
DX: R33.9 Retention of urine, unspecified (principal); N39.0 Urinary tract infection, site not specified; E11.9 Type 2 diabetes mellitus without complications; I10 Essential (primary) hypertension; I48.91 Unspecified atrial fibrillation; Z79.899 Other long term (current) drug therapy; Z79.01 Long term (current) use of anticoagulants
CPT/HCPCS: 36415; 80053; 81001; 85025; 85610; 87086; 87088; 87186; 99283; 99285

== ENCOUNTER 2024-12-07 17:06 | Emergency (ER) | payer MEDICARE, SELFPAY ==
--- OUTSIDE RECORDS SUMMARY | 2023-11-23 08:15 | XMS_ITS ---
Author Organization [facility] Address [address] [place] [address] Care Team Providers Care Warehouse Examiner Name Role Phone Socorro Glover Primary Care Provider UnavailTara Medina [phone] Encounters Encounter Location Date Provider Diagnosis [facility] [address] [place] [address] 11/23/2023 Tara Denis Plan Of Treatment Next Appt Details Provider Name:Tara veloz, 03/11/2025 10:00:00 AM, [address] [place], [address], Progress Notes * Katina STEPHENSDOB:1940 (84 yo M)Acc No.[id number]:11/23/2023 Progress Note Patient: Katina FLETCHER Provider: Starr Denis DPM :1940 A ge:83 Y S ex:Male Date:11/23/2023 Address:[address] [id number] Pcp:Socorro Glover Subjective: * Chief Complaints: * * Medical History: Objective: * Vitals: Assessment: Plan: * Treatment: * Images: * The named appointment provid er may or may not be the originator of this progress note, and it is not deemed complete until electronically signed by the appointment provider. Sign off status: Pending * Provider: Starr Denis, MARK Date: 1 Generated for La fenton/Jana/Manasa on: 06:23 PM EDT
--- OUTSIDE RECORDS SUMMARY | 2024-12-05 08:30 | XMS_ITS ---
Author Organization [facility] Address [address] [place] [address] Care Team Providers Care Pattern Grader Cutter Name Role Phone Socorro Glover Primary Care Provider Tara Mirza Unavailable [phone] Medications Medication SIG (Take, Route, Frequency, Duration) Notes Start Date End Date Status amLODIPine Besylate 5 MG Oral; Duration: 90 Days Active Melatonin 2023 Active Simvastatin 20 MG TAKE 1 TABLET BY SHANNAN TH ONCE DAILY IN THE EVENING Oral; Duration: 90 Days Active Vitamin B12 2023 Active glipiZIDE ER 10 MG TAKE 1 TABLET BY SHANNAN TH ONCE DAILY WITH BREAKFAST Oral; Duration: 90 Days Active Tamsulosin HCl 0.4 MG TAKE 1 CAPSULE BY MOUTH TWICE DAILY Oral; Duration: 90 Days Not-Taking Lisinopril 20 MG TAKE 1 TABLET BY SHANNAN TH TWICE DAILY Oral; Duration: 90 Days Not-Taking metFORMIN HCl 1000 MG Oral; Duration: 90 Days Active Sotalol HCl 80 MG Oral; Duration: 90 Days Active Eliquis 5 MG TAKE 1 TABLET BY SHANNAN TH TWICE A DAY Oral; Duration: 90 Days Active Finasteride 5 MG Oral; Duration: 90 Days Not-Taking Ciclopirox Olamine 0.77 % 1 application Externally Twice a day; Duration: 30 days Not-Taking Extra Depth Orthopedic Shoes (1 Pair) with Customized Heat Molded Multidensity Innersoles (3 Pair) as directed Dx: NIDDM/Polyneuropathy (E11.42), Hammertoe Foot Deformity (M20.41,M20.42), Preulcerative Skin Lesion(s) (L85.1 Active Encounters Encounter Location Date Provider Diagnosis [facility] [place] [address] [place] [address] 12/05/2024 Tara Denis Plan Of Treatment Next Appt Details Provider Name:Tara veloz, 03/11/2025 10:00:00 AM, [address] [place], [address], Progress Notes * COLEMANKESHIAKatinaDOB:1940 (84 yo M)Acc No.[id number]:12/05/2024 Progress Note Patient: Katina FLETCHER Provider: Starr Denis DPM :1940 A ge:84 Y S ex:Male Date:12/05/2024 Address:[address] [place], [place] [id number] Pcp:Socorro Glover Subjective: * Chief Complaints: * * HPI: A t Risk footcare: Pt States Last PCP Visit: D ate 0 08/22/2024 * Medical History: * Medications: T aking metFORMIN HCl 1000 MG Tablet Oral , Taking Sotalol HCl 80 MG Tablet Oral , Taking Eliquis 5 MG Tablet TAKE 1 TABLET BY MOUTH TWICE A DAY Oral , Taking glipiZIDE ER 10 MG Tablet Extended Release 24 Hour TAKE 1 TABLET BY MOUTH ONCE DAILY WITH BREAKFAST Oral , Taking Simvastatin 20 MG Tablet TAKE 1 TABLET BY MOUTH ONCE DAILY IN THE EVENING Oral , Taking Vitamin B12 , Taking amLODIPine Besylate 5 MG Tablet Oral , Taking Melatonin , Taking Extra Depth Orthopedic Shoes (1 Pair) with Customized Heat Molded Multidensity Innersoles (3 Pair) as directed Dx: NIDDM/Polyneuropathy (E11.42), Hammertoe Foot Deformity (M20.41,M20.42), Preulcerative Skin Lesion(s) (L85.1 , Not-Taking/PRN Tamsulosin HCl 0.4 MG Capsule TAKE 1 CAPSULE BY MOUTH TWICE DAILY Oral , Not-Taking/PRN Lisinopril 20 MG Tablet TAKE 1 TABLET BY MOUTH TWICE DAILY Oral , Not-Taking/PRN Finasteride 5 MG Tablet Oral , Not-Taking/PRN Ciclopirox Olamine 0.77 % Cream 1 application Externally Twice a day Objective: * Vitals: Assessment: Plan: * Treatment: * Images: * The named appointment provid er may or may not be the originator of this progress note, and it is not deemed complete until electronically signed by the appointment provider. Sign off status: Pending * Provider: Starr Denis DPM Date: Generated for La fenton/Jana/Manasa on: 06:23 PM EDT History and Physical Notes * HPI (History of Present Illness) Category Sub-Category Detail Notes Category Not es At Risk footcare Pt States Last PCP Visit: Date: 5
--- NOTE | 2024-12-07 17:23 | ED.GENADULT ---
HPI - General Adult General Chief complaint: Urogenital-Male Stated complaint: abnormal labs Time Seen by Provider: 12/07/24 21:03 Source: patient and family Mode of arrival: ambulatory Limitations: no limitations History of Present Illness ED Provider: Dr. Pallavi Romero HPI narrative: 84-year-old male with extensive past medical history including CHF, atrial fibrillation on Eliquis, BPH status post TURP procedure presenting with dysuria, generalized malaise and fatigue ongoing for the last 6 days or so. Patient states he was seen at his urologist office and follow up after his TURP procedure and was found to have a urinary tract infection. He was started on amoxicillin and took that for 2 days but unfortunately had an adverse reaction where he was nauseous and felt extremely fatigued so he stopped taking amoxicillin. He called the doctor's office and they called him in a prescription for Macrobid. He took 1 day of Macrobid and felt sick again so he has stopped taking that as well. He denies associated vomiting though. No reported fever at home though his temperature here is slightly elevated at 99.7. No antipyretics in the last 24 hours. He denies sinus congestion, cough or cold-type symptoms, abdominal pain, back pain, bowel changes, hematuria, lower extremity edema or pain. Does recent infection of shingles but has not taken any medications for this in the last week. Related Data Home Medications ?Medication ?Instructions ?Recorded ?Confirmed apixaban 5 mg tablet (Eliquis) 5 mg PO BID 09/11/23 01/14/24 finasteride 5 mg tablet 5 mg PO DAILY 09/11/23 01/14/24 glipizide 10 mg tablet, extended 10 mg PO DAILY 09/11/23 01/14/24 release 24 hr metformin 1,000 mg tablet 1,000 mg PO BID 09/11/23 01/14/24 simvastatin 20 mg tablet 20 mg PO BEDTIME 09/11/23 01/14/24 tamsulosin 0.4 mg capsule 0.8 mg PO DAILY 09/11/23 01/14/24 sotalol 80 mg tablet 80 mg PO BID 01/14/24 01/14/24 Previous Rx's ?Medication ?Instructions ?Recorded walker #1 ea 01/18/24 amlodipine 10 mg tablet 10 mg PO DAILY #90 tabs 01/22/24 cefuroxime axetil 500 mg tablet 500 mg PO BID #12 tabs 01/22/24 valacyclovir 1 gram tablet 1,000 mg PO TID #18 tabs 01/22/24 cefuroxime axetil 500 mg tablet 500 mg PO BID #20 tabs 03/26/24 cefuroxime axetil 250 mg tablet 250 mg PO Q12H 10 days #20 tabs 12/07/24 Allergies Allergy/AdvReac Type Severity Reaction Status Date / Time amoxicillin AdvReac Nausea and Verified 12/07/24 17:27 Vomiting nitrofurantoin AdvReac Nausea and Verified 12/07/24 17:27 Vomiting Review of Systems Review of Systems: as per HPI, full review of systems performed and negative but for the above mentioned pertinent positives and negatives. [facility] Past Medical History Medical History BPH (benign prostatic hyperplasia) Type 2 diabetes mellitus Hyperlipidemia Paroxysmal atrial fibrillation Essential hypertension Social History Social History Household Members: Spouse Housing: House Do you presently have visiting nurse or other home services: No Patient Tobacco Use Status: Former Tobacco user Tobacco use type: Cigarette Smoked in Last 30 Days: No Second Hand Smoke Exposure: No Use of substances other than those prescribed or required for medical reasons: No Advance Directives: Yes Advance Directives Information Provided: No Advance Directives on File: No service: Yes Physical Exam ED Exam Exam: GENERAL: Ill-Appearing, appears uncomfortable. SKIN: Normal skin color for ethnicity, warm, dry, no rashes noted. HEENT:? Normocephalic, atraumatic, no stridor, dry mucous membranes, dentition intact, EOMI. NECK: Soft, supple, full ROM, midline structures nontender, no step-offs, no deformities, no lymphadenopathy. CHEST: Heart regular rhythm, no murmurs, symmetric chest rise and fall. PULMONARY: Clear to auscultation bilaterally, diminished at the bases, no labored breathing, no wheezes/rhales/rhonchi. ABDOMINAL: Soft, nondistended, nontender, positive bowel sounds in all quadrants. : Deferred. MUSCULOSKELETAL: Normal tone, full range of motion, no deformities, no peripheral edema. NEURO: Alert and oriented x3, CN II through XII intact, equal strength and sensation bilateral upper and lower extremities, no focal neurologic deficits.? PSYCHIATRIC: Flat affect, fluid speech, good eye contact and appropriate demeanor. Vital Signs: Vital Signs - 24 hr 12/07/24 17:25 12/07/24 18:34 12/07/24 19:51 Temperature 98.0 F 98.0 F 99.7 F Pulse Rate 73 70 87 Respiratory Rate 18 16 18 Blood Pressure 116/56 L 109/49 L 130/60 Pulse Oximetry 99 99 98 Oxygen Delivery Method Room Air Room Air Room Air BMI result Body Mass Index 26.5 Course Course Course Narrative: Michelle Rodriguez [employer] 12/07 1722 This is a rapid medical exam. Deferred additional HPI, ROS, PE to primary provider. 84 yo male with PMH of HTN, DM, HLD, BPH, afib on eliis here with complaints of generalized weakness. On Sunday went to urologist ([facility] Dr Carranza). Diagnosed with UTI, started on augmentin, developed headache and fatigue. Switched to macrobid, then developed vomiting. Having urinary frequency, dysuria and feels very weak. Will obtain labs, UA VSS Medications Administered Generic Name Dose Route Start Last Admin Trade Name Freq PRN Reason Stop Dose Admin Sodium Chloride 1,000 mls @ 999 mls/hr 12/07/24 22:00 12/07/24 21:56 Ns IV 12/07/24 23:00 999 mls/hr .[id number] SHAYNA Administration Discontinued Medications Generic Name Dose Route Start Last Admin Trade Name Freq PRN Reason Stop Dose Admin Ceftriaxone Sodium 1 gm/ 50 mls @ 100 mls/hr 12/07/24 21:47 12/07/24 21:57 Sodium Chloride IV 12/07/24 22:16 100 mls/hr ONCE ONE Administration Medical Decision Making Medical Decision Making [facility] Narrative: Patient presents today with generalized weakness in the setting of recently diagnosed UTI that is currently being untreated after reaction to multiple antibiotics. Differential diagnosis includes anemia, electrolyte abnormality, worsening infection including sepsis, rhabdomyolysis/myositis, neurologic disorders such as Guillain-Mehama or myasthenia gravis, CVA, medication side effects, deconditioning, dehydration, among many others. A broad-based workup was initiated based on the patient's history and physical examination. They were watched closely on cardiac care nurse with vital signs that were monitored during the duration of their stay. There are no signs of focal neurological deficit or weakness on exam. Patient has evidence of slight DRE, likely secondary to dehydration in the setting of being ill. His CBC is reassuring though, white blood cell count of 5.3, with neutrophilic predominance. His urine is obviously infected. We will attempt a cephalosporin antibiotic here in the emergency department, hydrate with fluids to see if he will improve slightly. He is nontoxic appearing, is not currently septic and reports to me that he is ?feeling a little bit better?. Anticipate discharge and outpatient follow up if he tolerates Rocephin. Differential Diagnosis Differential Diagnoses: The differential diagnosis associated with the presentation includes (as above) Admission/Observation Consideration of admission/observation: Escalation of care including admission/observation considered Lab Data MDM Lab Attestation statement: I reviewed the patient's lab results. 12/07/24 17:54 12/07/24 17:54 Labs: Lab Results 12/07/24 12/07/24 12/07/24 Range/Units 17:54 20:56 21:40 WBC 5.3 (4.8-10.8) X10*3/uL RBC 3.82 L (4.60-5.80) X10*6/uL Hgb 12.1 L (14.0-18.0) g/dl Hct 35.1 L (42.0-52.0) % MCV 91.9 (80.0-98.0) fL MCH 31.7 (27.0-33.0) pg MCHC 34.5 (31.0-36.0) g/dl RDW 12.2 (11.0-16.0) % Plt Count 242 (160-400) X10*3/uL MPV 9.2 L (9.4-12.4) fL Immature Gran % (Auto) 0.2 (0.0-0.4) % Neut % (Auto) 76.9 H (45-73) % Lymph % (Auto) 10.3 L (20-40) % Branch % (Auto) 10.3 (2-11) % Eos % (Auto) 1.9 (0-4) % Baso % (Auto) 0.4 (0-2) % Lymph # (Auto) 0.6 L (1.2-4.9) X10*3/uL Branch # (Auto) 0.6 (0.1-1.2) X10*3/uL Eos # (Auto) 0.1 (0.0-0.4) X10*3/uL Baso # (Auto) 0.0 (0.0-0.2) X10*3/uL Abs Immat Gran (auto) 0.01 (0.00-0.03) X10*3/uL Absolute Neuts (auto) 4.1 (2.0-8.3) x10*3/uL Absolute Nucleated RBC 0.000 (0.0-0.012) X10*3/uL Nucleated RBC % (auto) 0.0 (0.0-0.2) /100WBC Sodium 135 (135-145) mmol/L Potassium 4.0 (3.3-5.1) mmol/L Chloride 103 (96-108) mmol/L Carbon Dioxide 23 (22-29) mmol/L Anion Gap 13 (12-20) BUN 29 H (9-16) mg/dL Creatinine 1.40 (0.5-1.4) mg/dL Estim Creat Clear Calc 37.3 Estimated GFR 48 Random Glucose 158 H (60-115) mg/dL Lactic Acid 1.1 (0.5-2.0) mmol/L Calcium 8.8 D (8.4-10.2) mg/dL Total Bilirubin 1.1 H (0.0-1.0) mg/dL Direct Bilirubin 0.4 (0.0-0.5) mg/dL AST 16 (5-37) U/L ALT 7 (0-40) U/L Alkaline Phosphatase 61 (39-117) U/L Total Protein 6.5 (6.5-8.0) g/dL Albumin 4.3 (3.5-5.0) g/dL Urine Color Yellow Urine Appearance Clear Urine pH 5.0 (5.0-9.0) Ur Specific Fisher 1.020 (1.005-1.025) Urine Protein Negative (Neg-Trace) mg/dL Urine Glucose (UA) Negative (Negative) mg/dL Urine Ketones Negative (Negative) mg/dL Urine Blood Trace H (Negative) Urine Nitrite Positive H (Negative) Ur Leukocyte Esterase Moderate (2+) H (Negative) Urine RBC 0-2 (0-2) /HPF Urine WBC >50 H (0-5) /HPF Ur Squamous Epith Cells 0-2 (0-2) /HPF Urine Bacteria 4+ (None Seen) Hyaline Casts 0-2 (0-2) /LPF COVID-19 (DOROTHY) Negative (Negative) COVID-19 Clin Com See Note Influenza Type A (LUCIANA) Negative (Negative) Influenza Type B (LUCIANA) Negative (Negative) Influenza A & B Note See Note Independent Historian Clinical information obtained from an independent historian. History obtained from or confirmed by: Spouse External Record Review External record reviewed: Inpatient record Prescription Management I considered prescription management with: Antibiotic Chronic Conditions Patient?s care impacted by: Hypertension and Other (afib, CHF) Discharge Plan Discharge Clinical Impression: Urinary tract infection, Malaise and fatigue Patient Disposition: Home, Self-Care Instructions: Urinary Tract Infection in Men (ED) Additional Instructions: Take your antibiotic as prescribed until the course is completed. Do not stop this medication early if you start to feel better. Return to the emergency department with any new or worsening symptoms including: Worsening pain, fevers greater than 100? despite antibiotic treatment, vomiting, or any new symptom that concerns you. Call 911 with any medical emergency. Prescriptions: New cefuroxime axetil 250 mg tablet 250 mg PO Q12H 10 Days Qty: 20 0RF No Action sotalol 80 mg tablet 80 mg PO BID (DME) [facility] [place] See Rx Instructions .Route Qty: 1 0RF Rx Instructions: As directed valacyclovir 1 gram Tablet 1,000 mg PO TID Qty: 18 0RF cefuroxime axetil 500 mg Tablet 500 mg PO BID Qty: 12 0RF amlodipine 10 mg Tablet 10 mg PO DAILY Qty: 90 0RF Protocol: Hold for SBP< HOLD for SBP < : 90 cefuroxime axetil 500 mg tablet 500 mg PO BID Qty: 20 0RF metformin 1,000 mg tablet 1,000 mg PO BID glipizide 10 mg tablet extended release 24hr 10 mg PO DAILY simvastatin 20 mg tablet 20 mg PO BEDTIME tamsulosin 0.4 mg capsule 0.8 mg PO DAILY finasteride 5 mg tablet 5 mg PO DAILY Eliquis 5 mg tablet 5 mg PO BID Print Language: Hungarian
[2024-12-07 17:25] VITALS: BP 116/56; PULSE 73; RESP 18; TEMP 36.7; O2SAT 99; BMI 26.5
[2024-12-07 18:06] LABS: Hematocrit 35.1 % (42.0-52.0); Hemoglobin 12.1 g/dl (14.0-18.0); Imm Gran Abs Auto 0.01 X10*3/uL (0.00-0.03); Imm Gran Pct Auto 0.2 % (0.0-0.4); Lymphocytes Absolute Auto 0.6 X10*3/uL (1.2-4.9); MANUAL DIFF FLAG NO; Mean Corpuscular HGB Conc 34.5 g/dl (31.0-36.0); Mean Corpuscular Hemoglobin 31.7 pg (27.0-33.0); Mean Corpuscular Volume 91.9 fL (80.0-98.0); NRBC Abs Auto 0.000 X10*3/uL (0.0-0.012); NRBC Pct Auto 0.0 /100WBC (0.0-0.2); Platelet Count 242 X10*3/uL (160-400); Red Blood Count 3.82 X10*6/uL (4.60-5.80); White Blood Count 5.3 X10*3/uL (4.8-10.8)
[2024-12-07 18:23] LABS: Alanine Aminotransferase 7 U/L (0-40); Albumin Level 4.3 g/dL (3.5-5.0); Alkaline Phosphatase 61 U/L (39-117); Anion Gap 13 (12-20); Aspartate Amino Transferase 16 U/L (5-37); Blood Urea Nitrogen 29 mg/dL (9-16); Calcium 8.8 mg/dL (8.4-10.2); Carbon Dioxide 23 mmol/L (22-29); Chloride 103 mmol/L (96-108); Creatinine Clr Calc Pharmacy 37.3; Estimated Glomerular Filt Rate 48; Potassium 4.0 mmol/L (3.3-5.1); Sodium 135 mmol/L (135-145); Total Protein 6.5 g/dL (6.5-8.0)
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
--- OUTSIDE RECORDS SUMMARY | 2024-12-07 18:23 | XMS_ITS | Encounter Summary ---
Author Organization [facility] Address [address] [place] [address] Care Team Providers Care Inside Sales Executive Name Role Phone Ruben Paul DO Primary Care Provider [phone] Encounter Details Date Type Department Care Team (Late st Contact Info) Description 03/24/2024 Lab Requisition [facility] - Main Lab [address] [facility] [place] [address] Isai Carranza MD [address] [facility] [address] [place] [address] Benign prostatic hyperplasia with lower urinary tract symptoms; Urinary tract infection, site not specified Social History Tobacco Use Types Packs/Day Years Used Date Smoking Tobacco: Former Cigarettes Q uit: 02/12/1969 Smokeless Tobacco: Never Alcohol Use Standard Drinks/Week Comments Yes 0 (1 standard drink = 0.6 oz pur e alcohol) Sex and Gender Information Value Date Recorded Sex Assigned at Not on file Legal Sex Male 11:34 AM EST Gender Identity Not on file Sexual Orientation Not on file documented as of this encounter Plan of Treatment Upcoming Encounters Date Type Department Care Team (Late st Contact Info) Description 03/19/2025 1:40 PM EST Office Visit [facility] - [facility] [address] [facility] [address] [place] [address] Janett Momin NP [address] [place] [address] documented as of this encounter Procedures Procedure Name Priority Date/Time Associated Diagnosis Comments URINALYSIS WITH REFLEX MICROSCOPIC Routine 03/24/2024 9:47 AM EST Benign prostatic hyperplasia with lower urinary tract symptoms Urinary tract infection, site not specified URINALYSIS WITH REFLEX MICROSCOPIC Routine 03/24/2024 9:47 AM EST Benign prostatic hyperplasia with lower urinary tract symptoms Urinary tract infection, site not specified COMPLETE BLOOD COUNT Routine 03/24/2024 9:47 AM EST Benign prostatic hyperplasia with lower urinary tract symptoms Urinary tract infection, site not specified CULTURE URINE Routine 03/24/2024 9:47 AM EST Benign prostatic hyperplasia with lower urinary tract symptoms Urinary tract infection, site not specified documented in this encounter Results * (ABNORMAL) Urinalysis with reflex microscopic (03/24/2024 9:47 AM EST) Specific [place] Urine 1.013 1.003 - 1.030 LAB URINALYSIS - AUTOMATED METHOD 03/24/2024 1:49 PM [facility] pH, Urine 6.0 5.0 - 8.0 pH LAB URINALYSIS - AUTOMATED METHOD 03/24/2024 1:49 PM [facility] Leukocytes, Urine Large(A) Negative LAB URINALYSIS - AUTOMATED METHOD 03/24/2024 1:49 PM [facility] Nitrite, Urine Positive(A) Negative LAB URINALYSIS - AUTOMATED METHOD 03/24/2024 1:49 PM [facility] Protein, Urine 30(A) <=Trace mg/dL LAB URINALYSIS - AUTOMATED METHOD 03/24/2024 1:49 PM [facility] Glucose, Urine Negative Negative mg/dL LAB URINALYSIS - AUTOMATED METHOD 03/24/2024 1:49 PM [facility] Ketones, Urine Negative Negative mg/dL LAB URINALYSIS - AUTOMATED METHOD 03/24/2024 1:49 PM [facility] Urobilinogen , Urine 0.2 0.2 - 1.0 mg/dL LAB URINALYSIS - AUTOMATED METHOD 03/24/2024 1:49 PM [facility] Bilirubin, Urine Negative Negative LAB URINALYSIS - AUTOMATED METHOD 03/24/2024 1:49 PM [facility] Blood, Urine Large(A) Negative LAB URINALYSIS - AUTOMATED METHOD 03/24/2024 1:49 PM [facility] RBC, Urine 48.5(H) 0 - 4 /HPF LAB URINALYSIS - AUTOMATED METHOD 03/24/2024 1:49 PM [facility] WBC, Urine 689.5(H) 0 - 4 /HPF LAB URINALYSIS - AUTOMATED METHOD 03/24/2024 1:49 PM [facility] Squamous Epithelial, Urine 40 0 - 60 /LPF LAB URINALYSIS - AUTOMATED METHOD 03/24/2024 1:49 PM [facility] Bacteria, Urine Many(A) Negative /HPF LAB URINALYSIS - AUTOMATED METHOD 03/24/2024 1:49 PM [facility] Hyaline Casts, Urine 2.5 0 - 3 /LPF LAB URINALYSIS - AUTOMATED METHOD 03/24/2024 1:49 PM [facility] Yeast, Urine Present(A) None /HPF LAB URINALYSIS - AUTOMATED METHOD 03/24/2024 1:49 PM [facility] Urine Urine specimen obtained by clean catch procedure / Unknown 03/24/2024 9:47 AM EST 03/24/2024 11:52 AM EST us Isai Carranza MD LAB URINE ORDERABLES Final Result [facility] [address] [place] [address], * (ABNORMAL) Culture urine (03/24/2024 9:47 AM EST) Culture, Urine >100,000 CFU/mL Klebsiella pneumoniae ssp pneumoniae(A) VIOLETA 03/28/2024 10:02 AM EST [facility] Comment: This is an edited result. Previous organism was Gram negative bacilli on 03/26/2024 at 0816 EST. Culture, Urine 10,000-49,000 CFU/mL Escherichia coli ESBL(A) VIOLETA 03/28/2024 10:02 AM EST [facility] Comment: THIS ORGANISM IS POSITIVE FOR EXTENDED SPECTRUM BETA-LACTAMASE (ESBL). EXTENDED SPECTRUM BETA-LACTAMASE PRODUCING ORGANISMS DEMONSTRATE DECREASED ACTIVITY WITH PENICILLILNS, CEPHALOSPORINS AND AZTREONAM. The organism value for this result has been updated. These results have been appended to the previously preliminary verified report. This is an edited result. Previous organism was Gram negative bacilli on 03/26/2024 at 0816 EST. Edited result: Previously reported as Escherichia coli on 03/27/2024 at 0959 EST. Urine Urine specimen obtained by clean catch procedure / Unknown 03/24/2024 9:47 AM EST 03/24/2024 11:52 AM EST Narrative Organism Antibiotic Method Susceptibility Klebsiella pneumoniae ssp pneumoniae Amoxicillin/Clavulanate VIOLETA 4 ug/ml: Susceptible Klebsiella pneumoniae ssp pneumoniae Ampicillin/Sulbactam VIOLETA <=2 ug/ml: Susceptible Klebsiella pneumoniae ssp pneumoniae Piperacillin/Tazobactam VIOLETA <=4 ug/ml: Susceptible Klebsiella pneumoniae ssp pneumoniae Cefazolin (Urine) VIOLETA 2 ug/ml: Susceptible Klebsiella pneumoniae ssp pneumoniae Cefoxitin VIOLETA <=4 ug/ml: Susceptible Klebsiella pneumoniae ssp pneumoniae Ceftazidime VILOETA <=0.5 ug/ml: Susceptible Klebsiella pneumoniae ssp pneumoniae Ceftriaxone VIOLETA <=0.25 ug/ml: Susceptible Klebsiella pneumoniae ssp pneumoniae Cefepime VIOLETA <=0.12 ug/ml: Susceptible Klebsiella pneumoniae ssp pneumoniae Meropenem VIOLETA <=0.25 ug/ml: Susceptible Klebsiella pneumoniae ssp pneumoniae Amikacin VIOLETA <=1 ug/ml: Susceptible Klebsiella pneumoniae ssp pneumoniae Gentamicin VIOLETA <=1 ug/ml: Susceptible Klebsiella pneumoniae ssp pneumoniae Ciprofloxacin VIOLETA <=0.06 ug/ml: Susceptible Klebsiella pneumoniae ssp pneumoniae Levofloxacin VIOLETA <=0.12 ug/ml: Susceptible Klebsiella pneumoniae ssp pneumoniae Nitrofurantoin VIOLETA <=16 ug/ml: Susceptible Klebsiella pneumoniae ssp pneumoniae Trimethoprim/Sulfamethoxazo le VIOLETA <=20 ug/ml: Susceptible Escherichia coli ESBL Amoxicillin/Clavulanate VIOLETA 4 ug/ml: Susceptible Escherichia coli ESBL Ampicillin/Sulbactam VIOLETA 4 ug/ml: Susceptible Escherichia coli ESBL Piperacillin/Tazobactam VIOLETA 16 ug/ml: Intermediate Escherichia coli ESBL Cefazolin (Urine) VIOLETA >=32 ug/ml: Resistant Escherichia coli ESBL Cefoxitin VIOLETA 8 ug/ml: Susceptible Escherichia coli ESBL Ceftazidime VIOLETA 16 ug/ml: Resistant Escherichia coli ESBL Ceftriaxone VIOLETA 32 ug/ml: Resistant Escherichia coli ESBL Cefepime VIOLETA 1 ug/ml: Susceptible Escherichia coli ESBL Meropenem VIOLETA <=0.25 ug/ml: Susceptible Escherichia coli ESBL Amikacin VIOLETA 2 ug/ml: Susceptible Escherichia coli ESBL Gentamicin VIOLETA <=1 ug/ml: Susceptible Escherichia coli ESBL Ciprofloxacin VIOLETA >=4 ug/ml: Resistant Escherichia coli ESBL Levofloxacin VIOLETA >=8 ug/ml: Resistant Escherichia coli ESBL Nitrofurantoin VIOLETA <=16 ug/ml: Susceptible Escherichia coli ESBL Trimethoprim/Sulfa methoxazo le VIOLETA >=320 ug/ml: Resistant us Isai Carranza MD LAB MICROBIOLOGY - GENERAL ORDERABLES Final Result [facility] [address] [place] [address], * (ABNORMAL) Complete blood count (03/24/2024 9:47 AM EST) WBC 4.9 4.8 - 10.8 K/mcL LAB HEMETOLOGY METHOD 03/24/2024 12:33 PM EST [facility] RBC 3.50(L) 4.50 - 5.50 M/mcL LAB HEMETOLOGY METHOD 03/24/2024 12:33 PM EST [facility] Hemoglobin 11.2(L) 13.5 - 17.5 g/dL LAB HEMETOLOGY METHOD 03/24/2024 12:33 PM EST [facility] Hematocrit 34.7(L) 42.0 - 54.0 % LAB HEMETOLOGY METHOD 03/24/2024 12:33 PM [facility] MCV 99.7(H) 79.0 - 98.0 FL LAB HEMETOLOGY METHOD 03/24/2024 12:33 PM [facility] MCH 32.2(H) 27.0 - 32.0 pcg LAB HEMETOLOGY METHOD 03/24/2024 12:33 PM EST [facility] MCHC 32.3 32.0 - 37.0 g/dL LAB HEMETOLOGY METHOD 03/24/2024 12:33 PM [facility] RDW 14.0 11.0 - 15.0 % LAB HEMETOLOGY METHOD 03/24/2024 12:33 PM [facility] Platelets 264 130 - 400 K/mcL LAB HEMETOLOGY METHOD 03/24/2024 12:33 PM [facility] MPV 9.7 7.0 - 11.0 FL LAB HEMETOLOGY METHOD 03/24/2024 12:33 PM [facility] NRBC 0.0 <1.0 % LAB HEMETOLOGY METHOD 03/24/2024 12:33 PM [facility] NRBC Absolute 0.00 <0.10 K/mcL LAB HEMETOLOGY METHOD 03/24/2024 12:33 PM [facility] Blood Venous blood specimen / Unknown 03/24/2024 9:47 AM EST 03/24/2024 11:52 AM EST Isai Carranza MD LAB BLOOD ORDERABLES Final Result [facility] [address] [place] [address], documented in this encounter Visit Diagnoses Diagnosis Benign prostatic hyperplasia with lower urinary tract symptoms Urinary tract infection, site not specified documented in this encounter Additional Health Concerns Infection Onset Date Last Indicated Resolved Time ESBL 03/24/2024 11/28/2024 documented as of this encounter Care Teams Inside Sales Executive Relationship Specialty Start Date End Date Ruben Paul DO [address] [place] [phone] PCP - General 10/23/14 documented as of this encounter
--- OUTSIDE RECORDS SUMMARY | 2024-12-07 18:23 | XMS_ITS | Encounter Summary ---
Author Organization [facility] Address [address] [place] [address] Care Team Providers Care Diver'S Tender Name Role Phone Ruben Paul Primary Care Provider [phone] Encounter Details Date Type Department Care Team (Late st Contact Info) Description 11/28/2024 Lab Requisition [facility] - Main Lab [address] [facility] [place] [address] Priti Marie PA [address] [place] [address] Urinary tract infection, site not specified Social History Tobacco Use Types Packs/Day Years Used Date Smoking Tobacco: Former Cigarettes Q uit: 02/12/1969 Smokeless Tobacco: Never Alcohol Use Standard Drinks/Week Comments Yes 0 (1 standard drink = 0.6 oz pur e alcohol) rare Sex and Gender Information Value Date Recorded Sex Assigned at Not on file Legal Sex Male 11:34 AM EST Gender Identity Not on file Sexual Orientation Not on file documented as of this encounter Plan of Treatment Upcoming Encounters Date Type Department Care Team (Late st Contact Info) Description 03/19/2025 1:40 PM EST Office Visit [facility] - [address] [facility] [address] [place] [address] Janett Momin NP [address] [place] [address] documented as of this encounter Procedures Procedure Name Priority Date/Time Associated Diagnosis Comments CULTURE URINE Routine 11/28/2024 10:15 AM EDT Urinary tract infection, site not specified documented in this encounter Results * (ABNORMAL) Culture urine (11/28/2024 10:15 AM EDT) Culture, Urine 50,000-100,000 CFU/mL Escherichia coli ESBL(A) VIOLTEA 11/30/2024 9:[address] [facility] Comment: THIS ORGANISM IS POSITIVE FOR EXTENDED SPECTRUM BETA-LACTAMASE (ESBL). EXTENDED SPECTRUM BETA-LACTAMASE PRODUCING ORGANISMS DEMONSTRATE DECREASED ACTIVITY WITH PENICILLINS, CEPHALOSPORINS AND AZTREONAM. This is an edited result. Previous organism was Gram negative bacilli on 11/29/2024 at 0930 EDT. Urine Urine specimen obtained by clean catch procedure / Unknown 11/28/2024 10:15 AM EDT 11/28/2024 1:45 PM EDT Narrative Organism Antibiotic Method Susceptibility Escherichia coli ESBL Amoxicillin/Clavulanate VIOLETA 4 ug/ml: Susceptible Escherichia coli ESBL Ampicillin/Sulbactam VIOLETA 8 ug/ml: Susceptible Escherichia coli ESBL Piperacillin/Tazobactam VIOLETA <=4 ug/ml: Susceptible Escherichia coli ESBL Cefazolin (Urine) VIOLETA >=32 ug/ml: Resistant Escherichia coli ESBL Cefoxitin VIOLETA <=4 ug/ml: Susceptible Escherichia coli ESBL Ceftazidime VIOLETA 16 ug/ml: Resistant Escherichia coli ESBL Ceftriaxone VIOLETA 32 ug/ml: Resistant Escherichia coli ESBL Cefepime VIOLETA 16 ug/ml: Resistant Escherichia coli ESBL Meropenem VIOLETA <=0.25 ug/ml: Susceptible Escherichia coli ESBL Amikacin VIOLETA 2 ug/ml: Susceptible Escherichia coli ESBL Gentamicin VIOLETA <=1 ug/ml: Susceptible Escherichia coli ESBL Ciprofloxacin VIOLETA >=4 ug/ml: Resistant Escherichia coli ESBL Levofloxacin VIOLETA >=8 ug/ml: Resistant Escherichia coli ESBL Nitrofurantoin VIOLETA <=16 ug/ml: Susceptible Escherichia coli ESBL Trimethoprim/Sulfa methoxazol e VIOLETA >=320 ug/ml: Resistant us Priti MILLS LAB MICROBIOLOGY - GENERAL ORD ERABLES Final Result [facility] [address] [place] [address], documented in this encounter Visit Diagnoses Diagnosis Urinary tract infection, site not specified documented in this encounter Additional Health Concerns Infection Onset Date Last Indicated Resolved Time ESBL 03/24/2024 11/28/2024 documented as of this encounter Care Teams Diver'S Tender Relationship Specialty Start Date End Date Ruben Paul DO [address] [place] [phone] PCP - General 10/23/14 documented as of this encounter
--- OUTSIDE RECORDS SUMMARY | 2024-12-07 18:23 | XMS_ITS ---
Author Name [facility] Organization Unknown History of Medication Use Medication Directions Dispensed Refills Start Date End Date Stat us sotaloL (BETAPACE) 80 mg tablet Take 1 tablet by mouth twice daily 09/29/2024 active apixaban (Eliquis) 5 mg tablet TAKE 1 TABLET TWICE A DAY 05/14/2024 active amLODIPine (NORVASC) 5 mg tablet Take 1 tablet by mouth once daily 09/03/2023 active cyanocobalamin, vitamin B-12, 1,000 mcg/15 mL liquid active finasteride (PROSCAR) 5 mg tablet Take 5 mg by mouth daily. active fluticasone propionate (FLONASE) 50 mcg/actuation nasal spray 50 mg by Nasal route daily. active glipiZIDE (GLUCOTROL XL) 10 mg 24 hr tablet Take 10 mg by mouth daily. active lisinopriL (PRINIVIL,ZESTRIL) 20 mg tablet Take 20 mg by mouth 2 times daily. active metFORMIN (GLUMETZA) 1,000 mg 24 hr tablet Take 1,000 mg by mouth 2 times daily. active simvastatin (ZOCOR) 20 mg tablet Take 1 tablet (20 mg total) by mouth at bedtime. active tamsulosin (FLOMAX) 0.4 mg 24 hr capsule Take 2 capsules (0.8 mg total) by mouth at bedtime. active Problems Problem Status Onset Date Problem Type Date of Resoluti on Source Contact dermatitis due to poison nic active 2022-05-30 [facility]Act [facility] Muscle weakness active 2024-01-[address] [facility] Unsteadiness on feet active 2024-01-22 ProblemAct [facility] Other seborrheic dermatitis active 2019-03-13 ProblemAct [facility] Finding of above normal blood pressure active 2019-03-14 ProblemAct [facility] Mixed hyperlipidemia active 2020-03-09 ProblemAct [facility] Spinal stenosis of lumbar region active 2024-08-22 ProblemAct [facility] Left hip pain active 2024-08-22 ProblemAct [facility] Atopic dermatitis active 2021-05-24 ProblemAct [facility] Sunburn active 2021-05-24 ProblemAct [facility] Senile hyperkeratosis active 2014-03-12 ProblemAct [facility] General symptom active 2017-03-[address] [facility] Hemangioma of skin and subcutaneous tissue active 2019-03-13 ProblemAct [facility] Hearing loss active 2019-03-14 ProblemAct [facility] Retention of urine active 2024-01-28 ProblemAct [facility] Benign prostatic hyperplasia active 2024-01-22 ProblemAct [facility] 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 active 2024-01-22 ProblemAct [facility] Localized edema active 2022-05-[address] [facility] Herpes zoster active 2024-09-02 ProblemAct [facility] Disorder of pigmentation active 2022-05-30 ProblemAct [facility] Pruritus active 2018-03-07 ProblemAct [facility] Essential hypertension active 2020-03-09 ProblemAct [facility] Dysphagia active 2024-01-22 ProblemAct [facility] Paroxysmal A-fib ([facility] V24, [facility] V28) active 2020-03-09 ProblemAct [facility] Type 2 diabetes mellitus without complication ([facility] V24, [facility] V28) active 2024-01-22 ProblemAct [facility] Hematuria syndrome active 2024-01-22 ProblemAct [facility] Abnormal gait active 2024-01-22 ProblemAct [facility] Acne active 2022-05-30 ProblemAct [facility]
--- OUTSIDE RECORDS SUMMARY | 2024-12-07 18:23 | XMS_ITS | Clinical Summary ---
Author Organization [facility] Address [address] [place] [phone] Phone Care Team Providers Care Microfilm Equipment Inspector Name Role Phone Pcp, Unknown Primary Care Provider Unavailabl e Social History Tobacco Use Types Packs/Day Years Used Date Smoking Tobacco: Never Assessed Education Answer Date Recorded Are you interested in more education? Not on [place] e 01/23/2024 Are you concerned about learning? Not on file 01/23/2024 No 01/23/2024 No 01/23/2024 Digital Access Answer Date Recorded No 01/23/2024 No 01/23/2024 Reliable internet access at home? Not on file 01/23/2024 Device with a working camera? Not on file Comments Unknown Sex and Gender Information Value Date Recorded Sex Assigned at Not on file Legal Sex Female 8:44 AM EST Gender Identity Not on file Sexual Orientation Not on file Plan of Treatment Not on file Medical Devices Not on file Insurance [place] MED[place] P[place] BLUE REPLACEMENT [facility] MEDICARE PPO BLUE REPLACEMENT [facility] MEDICARE PPO BLUE REPLACEMENT [facility] MEDICARE PPO BLUE [facility]PLACEMENT [address] [facility] [place] Care Teams Microfilm Equipment Inspector Relationship Specialty Start Date End Date Pcp, Unknown PCP - General 01/23/24 Additional Source Comments The information contained in this document represents components of the legal health record. It is not the complete legal health record.[facility]
--- OUTSIDE RECORDS SUMMARY | 2024-12-07 18:23 | XMS_ITS | Patient Health Record ---
Author Organization [facility] Address [address] [facility] [place] [address] Care Team Providers Care Rehabilitation Caseworker Name Role Phone Socorro Glover Primary Care Provider Unavailab Tara Alexander Unavailable [phone] Allergies No Known Allergies Results Component Value Reference Range Notes HEMOGLOBIN A1C (GLYCOHEMOGLO BIN) Reviewed date:02/22/2024 09:41:03 AM Interpretation: Performing Lab: Notes/Report: HEMOGLOBIN A1C % (HH) 7.4 HEMOGLOBIN A1C (GLYCOHEMOGLO BIN) Reviewed date:05/30/2024 08:56:53 AM Interpretation: Performing Lab: Notes/Report: HEMOGLOBIN A1C % (HH) 7.4 Reason For Referral No Information Medications Medication SIG (Take, Route, Frequency, Duration) Notes Start Date End Date Status Melatonin 2023 Active Finasteride 5 MG Oral; Duration: 90 Days Not-Taking amLODIPine Besylate 5 MG Oral; Duration: 90 Days Active Tamsulosin HCl 0.4 MG TAKE 1 CAPSULE BY MOUTH TWICE DAILY Oral; Duration: 90 Days Not-Taking Lisinopril 20 MG TAKE 1 TABLET BY SHANNAN TH TWICE DAILY Oral; Duration: 90 Days Not-Taking metFORMIN HCl 1000 MG Oral; Duration: 90 Days Active Ciclopirox Olamine 0.77 % 1 application Externally Twice a day; Duration: 30 days Not-Taking Sotalol HCl 80 MG Oral; Duration: 90 Days Active Extra Depth Orthopedic Shoes (1 Pair) with Customized Heat Molded Multidensity Innersoles (3 Pair) as directed Dx: NIDDM/Polyneuropathy (E11.42), Hammertoe Foot Deformity (M20.41,M20.42), Preulcerative Skin Lesion(s) (L85.1 Active Simvastatin 20 MG TAKE 1 TABLET BY SHANNAN TH ONCE DAILY IN THE EVENING Oral; Duration: 90 Days Active Vitamin B12 2023 Active Eliquis 5 MG TAKE 1 TABLET BY SHANNAN TH TWICE A DAY Oral; Duration: 90 Days Active glipiZIDE ER 10 MG TAKE 1 TABLET BY SHANNAN TH ONCE DAILY WITH BREAKFAST Oral; Duration: 90 Days Active Immunizations Vaccine Route Administration Date Status Comme nts Influenza Unknown 11/13/2022 Administered Influenza Unknown 10/14/2023 Administered Social History Tobacco Use: Social History Observation Description Date Details (start date - stop date) Never Smoker NA - NA Alcohol Screen Question Answer Notes Did you have a drink containing alcohol in the p ast year? No Points 0 Interpretation Negative Tobacco use other than smoking: Question Answer Notes Are you an other tobacco user? No Tobacco Control (Standard) Question Answer Notes Tobacco use: Nonsmoker AUDIT-C (Standard) Question Answer Notes Did you have a drink containing alcohol in the p ast year? No Points 0 Interpretation Negative Problems Problem Type SNOMED Code ICD Code Onset Dates Problem Status W/U Status Risk Notes Problem Polyneuropathy due to type 2 diabetes mellitus (464051792) Type 2 diabetes mellitus with diabetic polyneuropathy (E11.42) Active confirmed Vital Signs Blood pressure diastolic 80 mm Hg 09/05/2024 Height 5 ft 8 in in 09/05/2024 Blood pressure systolic 118 mm Hg 09/05/2024 Weight 188 lbs 09/05/2024 BMI 28.58 kg/m2 09/05/2024 Encounters Encounter Location Date Provider Diagnosis [facility] [address] [address] 02/22/2024 Tara Denis Other hammer toe(s) (acquired), right foot M20.41 ; Tinea pedis of both feet B35.3 ; Type 2 diabetes mellitus with diabetic polyneuropathy E11.42 ; Tinea unguium B35.1 and Other hammer toe(s) (acquired), [facility] [address] 05/30/2024 Tara Denis Type 2 diabetes mellitus with diabetic polyneuropathy E11.42 and Tinea unguium B35.[address] [facility] [address] 09/05/2024 Tara Denis Other hammer toe(s) (acquired), right foot M20.41 ; Contusion of left foot, initial encounter S90.32XA ; Tinea pedis of both feet B35.3 ; Type 2 diabetes mellitus with diabetic polyneuropathy E11.42 ; Tinea unguium B35.1 ; Other hammer toe(s) (acquired), left foot M20.42 ; Pain in left foot M79.672 and Contusion of left ankle, initial encounter S90.02XA [address] [address] 02/26/2024 Tara Denis [address] [address] 12/05/2024 Tara Denis Assessments Encounter Date Diagnosis (ICD Code) Assessment Notes Treatment Notes Treatment Clinical Notes Section Notes 02/22/2024 Other hammer toe(s) (acquired), right foot (ICD-10 - M20.41) 02/22/2024 Tinea pedis of both feet (ICD-10 - B35.3) 05/30/2024 Type 2 diabetes mellitus with diabetic polyneuropathy (ICD-10 - E11.42) 05/30/2024 Tinea unguium (ICD-10 - B35.1) 09/05/2024 Other hammer toe(s) (acquired), right foot (ICD-10 - M20.41) 09/05/2024 Contusion of left foot, initial encounter (ICD-10 - S90.32XA) 09/05/2024 Tinea pedis of both feet (ICD-10 - B35.3) 02/22/2024 Type 2 diabetes mellitus with diabetic polyneuropathy (ICD-10 - E11.42) 02/22/2024 Tinea unguium (ICD-10 - B35.1) 09/05/2024 Type 2 diabetes mellitus with diabetic polyneuropathy (ICD-10 - E11.42) 09/05/2024 Tinea unguium (ICD-10 - B35.1) 02/22/2024 Other hammer toe(s) (acquired), left foot (ICD-10 - M20.42) 09/05/2024 Other hammer toe(s) (acquired), left foot (ICD-10 - M20.42) 09/05/2024 Pain in left foot (ICD-10 - M79.672) 09/05/2024 Contusion of left ankle, initial encounter (ICD-10 - S90.02XA) Plan Of Treatment Pending Test Test Name Order Date X ray : Ankle, left 3V 09/05/2024 X ray : Foot, left 3V 09/05/2024 Next Appt Details Provider Name:Tara veloz, 03/11/2025 10:00:00 AM, [address] [place], [address], Insurance Providers Payer Name Payer Address Payer Phone Subscriber Number Group Number Insured Name Patient Relationship to Insured Coverage Start Date Coverage End Date [facility] 65 Medicare Preferred [address] [place] [address] [phone] [id number] Katina Stephens Self - patient is the insured Medical (General) History Medical History History ICD Code Back,Hip,and Knee pain Cataracts Depression Diabetic Headaches/Migraines Heart disease High blood pressure Numbness Chicken pox Surgical History Surgery Date(Month/Year) back surgery appendectomy exploratory penis surgery 05/06 Hospitalization History Reason Date(Month/Year) Fell 09/05 Cdiff 01/2024 shelter stay 01/12-01/25 [facility]- Encephalitis 01/14/24 [facility]- concussion 10/2023
--- OUTSIDE RECORDS SUMMARY | 2024-12-07 18:23 | XMS_ITS | Encounter Summary ---
Author Organization [facility] Address [address] [place] [address] Care Team Providers Care Mess Cook Name Role Phone Ruben Paul DO Primary Care Provider [phone] Encounter Details Date Type Department Care Team (Late st Contact Info) Description 02/15/2024 Lab Requisition [facility] - Main Lab [address] [facility] [place] [address] Ruben Paul DO [address] [place] [phone] Diarrhea, unspecified; Other fecal abnormalities; Unspecified abdominal pain Social History Tobacco Use Types Packs/Day Years [...] 03/19/2025 1:40 PM EST Office Visit [facility] [address] [facility] [address] [place] [address] Janett Momin NP [address] [place] [address] documented as of this encounter Procedures Procedure Name Priority Date/Time Associated Diagnosis Comments GASTROINTESTINAL PATHOGENS BY PCR Routine 02/14/2024 8:30 PM EST Diarrhea, unspecified Other fecal abnormalities Unspecified abdominal pain OVA AND PARASITE EXAMINATION Routine 02/14/2024 8:30 PM EST Diarrhea, unspecified Other fecal abnormalities Unspecified abdominal pain CLOSTRIDIUM DIFFICILE PCR Routine 02/14/2024 8:30 PM EST Diarrhea, unspecified Other fecal abnormalities Unspecified abdominal pain CLOSTRIDIUM DIFFICILE TOXIN Routine 02/14/2024 8:30 PM EST Diarrhea, unspecified Other fecal abnormalities Unspecified abdominal pain documented in this encounter Results * (ABNORMAL) Clostridium difficile molecular study (02/14/2024 8:30 PM EST) Pathologist [facility] Clostridium difficile PCR Positive (AA) Negative LAB MICROBIOLOGY METHOD 02/15/2024 2:43 PM EST [facility] Comment: CRITICAL RESULT POSITIVE FOR TOXIN PRODUCING CLOSTRIDIOIDES DIFFICILE, NO ADDITIONAL TESTING IS NECESSARY. REPEAT SAMPLES SHOULD NOT BE SUBMITTED FOR TEST OF CURE. Stool Rectum structure / Unknown 02/14/2024 8:30 PM EST 02/15/2024 11:48 AM EST Ruben Paul DO LAB MICROBIOLOGY - GENERAL OR DERABLES Final Result [facility] [address] [place] [address], [place] [phone] * Ova and parasite examination (02/14/2024 8:30 PM EST) Pathologist [facility] Ova and Parasite No Ova or Parasite seen. 02/25/2024 3:01 PM EST [facility] Stool Rectum structure / Unknown 02/14/2024 8:30 PM EST 02/15/2024 11:10 AM EST Narrative [facility] - 02/25/2024 3:01 PM EST Special test request required for Coccidia and Microsporidia. [facility] MICROBIOLOGY - GENERAL OR DERABLES Final Result Performing Organization Address [facility]/ZIP Co de Phone Number [facility] [address] [place] [address], [place] [phone] * Clostridium difficile toxin (02/14/2024 8:30 PM EST) [facility] C difficile Toxins A+B, EIA 02/15/2024 11:48 AM EST [facility] Comment:Refer to C. difficil e PCR assay for results. Stool Rectum structure / Unknown 02/14/2024 8:30 PM EST 02/15/2024 11:10 AM EST [facility] MICROBIOLOGY - GENERAL OR DERABLES Final Result Performing Organization Address City/[facility]/ZIP Co de Phone Number [facility] [address] [place] [address], [place] [phone] * Gastrointestinal pathogens molecular study (02/14/2024 8:30 PM EST) [facility] Campylobacter Detection by PCR Not Detected Not Detected LAB MICROBIOLOGY METHOD 5 1:01 PM EST [facility] Plesiomonas shigelloides Detection by PCR Not Detected Not Detected LAB MICROBIOLOGY METHOD 5 1:01 PM EST [facility] Salmonella Detection by PCR Not Detected Not Detected LAB MICROBIOLOGY METHOD 5 1:01 PM [facility] Vibrio Detection by PCR Not Detected Not Detected LAB MICROBIOLOGY METHOD 5 1:01 PM [facility] Vibrio cholerae Detection by PCR Not Detected Not Detected LAB MICROBIOLOGY METHOD 5 1:01 PM EST [facility] Yersinia enterocolitica Detection by PCR Not Detected Not Detected LAB MICROBIOLOGY METHOD 5 1:01 PM [facility] Enteroaggregative E coli EAEC Detection by PCR Not Detected Not Detected LAB MICROBIOLOGY METHOD 5 1:01 PM [facility] Enteropathogenic E coli EPEC Detection Not Detected Not Detected LAB MICROBIOLOGY METHOD 5 1:01 PM [facility] Enterotoxigenic E coli ETEC LTST Detection Not Detected Not Detected LAB MICROBIOLOGY METHOD 5 1:01 PM [facility] Shiga-like toxin producing E coli STEC STX1 STX2 Det Not Detected Not Detected LAB MICROBIOLOGY METHOD 5 1:01 PM [facility] Shigella Enteroinvasive E coli EIEC Detection Not Detected Not Detected LAB MICROBIOLOGY METHOD 5 1:01 PM [facility] Cryptosporidium Detection by PCR Not Detected Not Detected LAB MICROBIOLOGY METHOD 5 1:01 PM [facility] Cyclospora cayetanensis Detection by PCR Not Detected Not Detected LAB MICROBIOLOGY METHOD 5 1:01 PM [facility] Entamoeba histolytica Detection by PCR Not Detected Not Detected LAB MICROBIOLOGY METHOD 5 1:01 PM [facility] Giardia lamblia Detection by PCR Not Detected Not Detected LAB MICROBIOLOGY METHOD 5 1:01 PM [facility] Adenovirus F 40 41 Detection by PCR Not Detected Not Detected LAB MICROBIOLOGY METHOD 5 1:01 PM [facility] Astrovirus Detection by PCR Not Detected Not Detected LAB MICROBIOLOGY METHOD 5 1:01 PM [facility] Norovirus GI GII Detection by PCR Not Detected Not Detected LAB MICROBIOLOGY METHOD 5 1:01 PM [facility] Sapovirus Detection by PCR Not Detected Not Detected LAB MICROBIOLOGY METHOD 5 1:01 PM [facility] Rotavirus A Detection by PCR Not Detected Not Detected LAB MICROBIOLOGY METHOD 1:01 PM EST [facility] Stool Rectum structure / Unknown 02/14/2024 8:30 PM EST 02/15/2024 11:10 AM EST Narrative [facility] - 02/15/2024 1:01 PM EST PCR testing is much more sensitive than traditional techniques and allows for the detection of low numbers of stool pathogens. The clinical correlation of PCR results with the need for treatment and clinical outcomes has not been established. Therefore the results of PCR testing for stool pathogens must be taken into clinical context when making treatment decisions. This is a diagnostic test only, repeat testing for cure is not advised. You may consider infectious disease consult for additional guidance. Testing Performed by [facility] Ruben Paul DO LAB MICROBIOLOGY - GENERAL OR DERABLES Final Result [facility] [address] [address], documented in this encounter Visit Diagnoses Diagnosis Diarrhea, unspecified Other fecal abnormalities Unspecified abdominal pain documented in this encounter Additional Health Concerns Infection Onset Date Last Indicated Resolved Time C. difficile 02/14/2024 02/14/2024 03/09/2024 7:06 PM EST Gastrointestinal Rule-Out 02/15/2024 02/14/2024 1:01 PM EST C. difficile Rule-Out 02/15/2024 02/14/20242024 11:48 AM EST ESBL 03/24/2024 11/28/2024 documented as of this encounter Care Teams Mess Cook Relationship Specialty Start Date End Date Ruben Paul DO [address] [place] [phone] PCP - General 10/23/14 documented as of this encounter
--- OUTSIDE RECORDS SUMMARY | 2024-12-07 18:23 | XMS_ITS | Encounter Summary ---
Author Organization [facility] Address [address] [place] [address] Care Team Providers Care Citrix Consultant Name Role Phone Ruben Paul Primary Care Provider [phone] Encounter Details Date Type Department Care Team (Late st Contact Info) Description 05/28/2024 Lab Requisition [facility] - Main Lab [address] [facility] [place] [address] Priti Marie PA [address] [place] [address] Urinary tract infection, site not specified Social [...] Description 03/19/2025 1:40 PM EST Office Visit [facility] - [address] [facility] [address] [place] [address] Janett Momin NP [address] [place] [address] documented as of this encounter Procedures Procedure Name Priority Date/Time Associated Diagnosis Comments CULTURE URINE Routine 05/28/2024 9:00 AM EDT Urinary tract infection, site not specified documented in this encounter Results * (ABNORMAL) Culture urine (05/28/2024 9:00 AM EDT) Culture, Urine >100,000 CFU/mL Escherichia coli ESBL(A) VIOLETA 05/30/2024 11:28 AM EDT TAMI MENDIETA [place] ([facility] Comment: THIS ORGANISM IS POSITIVE FOR EXTENDED SPECTRUM BETA-LACTAMASE (ESBL). EXTENDED SPECTRUM BETA-LACTAMASE PRODUCING ORGANISMS DEMONSTRATE DECREASED ACTIVITY WITH PENICILLILNS, CEPHALOSPORINS AND AZTREONAM. This is an edited result. Previous organism was Gram negative bacilli on 05/29/2024 at 0748 EDT. Urine Urine specimen obtained by clean catch procedure / Unknown 05/28/2024 9:00 AM EDT 05/28/2024 1:45 PM EDT Narrative Organism Antibiotic Method Susceptibility Escherichia coli ESBL Amoxicillin/Clavulanate VIOLETA 8 ug/ml: Susceptible Escherichia coli ESBL Ampicillin/Sulbactam VIOLETA [...] <=0.25 ug/ml: Susceptible Escherichia coli ESBL Amikacin IVOLETA 4 ug/ml: Susceptible Escherichia coli ESBL Gentamicin VIOLETA <=1 ug/ml: Susceptible Escherichia coli ESBL Ciprofloxacin VIOLETA >=4 ug/ml: Resistant Escherichia coli ESBL Levofloxacin VIOLETA >=8 ug/ml: Resistant Escherichia coli ESBL Nitrofurantoin VIOLETA <=16 ug/ml: Susceptible Escherichia coli ESBL Trimethoprim/Sulfa methoxazol e VIOLETA >=320 ug/ml: Resistant us Priti MILLS LAB MICROBIOLOGY - GENERAL ORD ERABLES Final Result TAMI MENDIETA [place] ([facility] [address] [place] [address], documented in this encounter Visit Diagnoses Diagnosis Urinary tract infection, site not specified documented in this encounter Additional Health Concerns Infection Onset Date Last Indicated Resolved Time ESBL 03/24/2024 11/28/2024 documented as of this encounter Care Teams Citrix Consultant Relationship Specialty Start Date End Date Ruben Paul DO [address] [place] [phone] PCP - General 10/23/14 documented as of this encounter
--- OUTSIDE RECORDS SUMMARY | 2024-12-07 18:23 | XMS_ITS | Encounter Summary ---
Author Organization [facility] Address [address] [place] [address] Care Team Providers Care Literature Professor Name Role Phone Ruben Paul DO Primary Care Provider [phone] Encounter Details Date Type Department Care Team (Late Contact Info) Description 04/08/2024 Lab Requisition [facility] - Main Lab [address] [facility] [place] [address] Isai Carranza MD [address] [facility] [address] [place] [address] Benign prostatic hyperplasia with lower urinary tract symptoms Social History Tobacco Use Types Packs/Day Years [...] Description 03/19/2025 1:40 PM EST Office Visit [facility] - [address] [facility] [address] [place] [address] Janett Momin NP [address] [place] [address] documented as of this encounter Procedures Procedure Name Priority Date/Time Associated Diagnosis Comments AP OUTSIDE CONSULT Routine 04/07/2024 Benign prostatic hyperplasia with lower urinary tract symptoms documented in this encounter Results * Anatomic pathology outside consult (04/07/2024) Final Diagnosis Prostate-trans urethral resection: -NODULAR HYPERPLASIA 04/09/2024 3:58 PM EST [facility] Clinical Information BPH N40.1 [id number] 04/09/2024 3:58 PM EST [facility] Gross Description A. Prostate, Chips: Labeled prostate chips . Received in formalin is an 18 gram, 3.1 x 2.6 x 2.0 cm aggregate of rubbery, cauterized, maya-pink, nodular and irregular tissue fragments, which are submitted in toto in 6 cassettes, multiple pieces each. /al 04/09/2024 3:58 PM EST [facility] Disclaimer Unless otherwise specified, all tissue is 10% NB formalin fixed and paraffin embedded. Technical pathology services provided by [facility] at [address], [place] [address] (CLIA #[id number] tina Richardson MD, Experimental Assembler) 04/09/2024 3:58 PM EST [facility] Tissue Prostate / Unknown 04/07/20242024 3:52 PM EST us Isai Carranza MD LAB PATHOLOGY ORDERABLES Fi nal Result [facility] [address] [place] [address], documented in this encounter Visit Diagnoses Diagnosis Benign prostatic hyperplasia with lower urinary tract symptoms documented in this encounter Additional Health Concerns Infection Onset Date Last Indicated Resolved Time ESBL 03/24/2024 11/28/2024 documented as of this encounter Care Teams Literature Professor Relationship Specialty Start Date End Date Ruben Paul DO [address] [place] [phone] PCP - General 10/23/14 documented as of this encounter
--- OUTSIDE RECORDS SUMMARY | 2024-12-07 18:23 | XMS_ITS | Clinical Summary ---
Author Organization [address] Address [address] [place] [phone] Phone Care Team Providers Care Client Service Representative Name Role Phone Ruben Paul DO Primary Care Provider [phone] Allergies No known active allergies Medications cyanocobalamin, vitamin B-12, 1,000 mcg/15 mL liquid Active finasteride (PROSCAR) 5 mg tablet Take 5 mg by mouth daily. Active fluticasone propionate (FLONASE) 50 mcg/actuation nasal spray 50 mg by Nasal route daily. Active glipiZIDE (GLUCOTROL XL) 10 mg 24 hr tablet Take 10 mg by mouth daily. Active lisinopriL (PRINIVIL,ZESTR IL) 20 mg tablet Take 20 mg by mouth 2 times daily. Active metFORMIN (GLUMETZA) 1,000 mg 24 hr tablet Take 1,000 mg by mouth 2 times daily. Active simvastatin (ZOCOR) 20 mg tablet Take 1 tablet (20 mg total) by mouth at bedtime. Active tamsulosin (FLOMAX) 0.4 mg 24 hr capsule Take 2 capsules (0.8 mg total) by mouth at bedtime. Active apixaban (Eliquis) 5 mg tablet TAKE 1 TABLET TWICE A DAY 180 tablet 3 05/14/2024 Active sotaloL (BETAPACE) 80 mg tablet Take 1 tablet by mouth twice daily 180 tablet 1 09/29/2024 Active melatonin 3 mg tablet Take by mouth. Active amLODIPine (NORVASC) 5 mg tablet Take 1 tablet by mouth once daily 90 tablet 3 10/28/2024 Active Active Problems Problem Noted Date Diagnosed Date Herpes zoster 09/02/2024 Spinal stenosis of lumbar region 08/22/2024 Assessment & Plan (08/22/2024 2:16 PM EDT): I reviewed the MRI findings in detail with Mr. Stephens and his noting the central stenosis at L4-5 but severe right foraminal narrowing not the left. I do not think this would explain his left knee symptoms, the staggering gait and, it is unlikely to be the primary issue since he has no back pain. I also reviewed his recent head CT and do not see an acute finding there that would explain the unsteady gait. He has no hydrocephalus. Left hip pain 08/22/2024 Assessment & Plan (08/22/2024 2:17 PM EDT): Mr. Stephens has significant left hip pain with mechanical testing and with just standing or sitting. This is currently outweighing his left knee pain which was already a problem. He has fallen many times because he feels the left knee is giving out. I believe these 2 issues are what is affecting his walking and we will refer him to orthopedics. 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 For now, continue his current treatment plan with ILIR inhibitor. His finasteride can also have some blood pressure lowering properties. Assessment & Plan (09/04/2024 4:47 PM EDT): Assessment & Plan (03/07/2024 11:36 AM EST): Mixed hyperlipidemia 03/09/2020 Overview (02/19/2024): We will request his most recent blood work from his PCPs office. Last Assessment & Plan: Well-controlled LDL. Continue statin at current dose. Paroxysmal A-fib (CMS/HCC V24, CMS/HCC V28) 02/13 Overview (02/19/2024): PVI 04/2016 Maintained in NSR on Sotalol therapy anticoagulated with coumadin Last Assessment & Plan: The patient has not had symptomatic recurrence of his atrial fibrillation, but he does have reported fatigue. EKG in office today is unremarkable. We will update his echocardiogram as well as a Holter monitor and follow his symptoms. He remains chronically anticoagulated with Coumadin and his goal INR is 2-3. We are requesting labs from his PCPs office, but if the TSH and CBC have not been completed in the last year or so, these will be updated Assessment & Plan (09/04/2024 3:32 PM EDT): Orders: ECG 12 lead Assessment & Plan (03/07/2024 11:24 AM EST): Orders: ECG 12 lead Transthoracic echocardiogram (TTE) complete with PRN contrast, bubble, strain, and 3D order panel; Future Finding of above normal blood pressure 0 Hearing loss 03/14/2019 Hemangioma of skin and subcutaneous tissue 03/13 Other seborrheic dermatitis 03/13/2019 Pruritus 03/07/2018 General symptom 03/01/2017 Senile hyperkeratosis 03/12/2014 Encounters Date Type Department Care Team Description 11/28/2024 Lab Requisition [facility] - Main Lab [address] [employer] [place] [phone] Priti Marie PA Urinary tract infection, site not specified 10/08/2024 3:10 PM EDT Office Visit Gastroenterology - [address] [facility] [address] [place] [phone] Janell Sapp PA Colon cancer screening (Primary Dx) 10/07/2024 Telephone Orthopedic Surgery - [place] [address] [facility] [address] [place] [address] Aditya Bridges DPM 10/07/2024 Telephone Orthopedic Surgery - [place] [address] [place] [phone] Alesia Rider NP 10/02/2024 2:00 PM EDT Consult Orthopedic Surgery [facility] [address] [facility] [address] [place] [address] Alesia Rider NP Left knee pain (Primary Dx); Left hip pain; Spinal stenosis of lumbar region, unspecified whether neurogenic claudication present; Lumbar spondylosis; Left leg numbness from Last 3 Months Surgical History Surgery Date Site/Laterality Comments COLONOSCOPY 04/25/2018 TAx3 tubulovillous x 1 COLONOSCOPY 06/09/2021 TA x 2, tubulovillous x 1 COLONOSCOPY 06/12/2022 TA x 2 Family History Medical History Relation Name Comments Stroke Father Colon cancer Neg Hx Relation Name Status Comments Father Social History Tobacco Use Types Packs/Day Years [...] on file Sexual Orientation Not on file Obstetrics History Last Filed Vital Signs Vital Sign Reading Time Taken Comments Blood Pressure 160/82 09/04/2024 2:04 PM EDT Pulse 81 09/04/2024 2:04 PM EDT Temperature 36.5 C (97.7 F) 08/16/2024 2:25 PM EDT Respiratory Rate 18 08/16/2024 2:25 PM EDT Oxygen Saturation 95% 09/04/2024 2:04 PM EDT Inhaled Oxygen Concentration - - Weight 83.5 kg (184 lb) 10/08/2024 3:00 PM EDT Height 172.7 cm (5' 8 ) 10/08/2024 3:00 PM EDT Body Mass Index 27.98 10/08/2024 3:00 PM EDT Plan of Treatment Upcoming Encounters Date Type Department Care Team (Late st Contact Info) Description 03/19/2025 1:40 PM EST Office Visit [facility] [address] [place] [address] Janett Momin, CRISPIN [address] [place] [address] Health Maintenance Due Date Last Done Comments Diabetes: Annual Foot Exam 1950 Diabetes: Annual Retina Eye Exam 1950 DTaP,Tdap,and Td Vaccines (1 - Tdap) 1958 Pneumococcal Vaccine: 50+ Years (1 of 2 - PCV) 1958 Zoster Vaccines (1 of 2) 1989 Falls Risk Assessment 01/21/2022 Medicare Annual Wellness Visit 01/21/2022 Social Influencers of Health Screening 01/21/2022 Depression Screening 02/13/2024 COVID-19 Vaccine ( season) 2024 11/12/2023, 11/13/2022, 11/17/2021, Additional history exists Influenza Vaccine (#1) 2024 , 11/13/2022, 11/09/2021 Diabetes: Blood Sugar Control Test (HGBA1C) 05/05/2025 11/05/2024, 03/17/2024 Diabetes: Annual Urine Albumin-Creatinine Ratio (uACR) 11/05/2025 11/05/2024 Diabetes: Annual GFR (Glomerular Filtration Rate) 11/05/2025 11/05/2024, 08/16/2024, 03/17/2024, Additional history exists Hypertension/CHF/CAD Annual BMP Blood Test 11/05/2025 11/05/2024, 08/16/2024, 03/17/2024, Additional history exists Cholesterol Screening (Lipid Panel) 11/05/2029 11/05/2024, 03/17/2024 RSV Immunization Adult Patients Completed 11/12/2023 HIB Vaccines Aged Out No longer eligi ble based on patient's age to complete this topic HPV Vaccines Aged Out No longer eligi ble based on patient's age to complete this topic Hepatitis A Vaccines Aged Out No long er eligible based on patient's age to complete this topic Hepatitis B Vaccines Aged Out No long er eligible based on patient's age to complete this topic IPV Vaccines Aged Out No longer eligi ble based on patient's age to complete this topic MMR Vaccines Aged Out No longer eligi ble based on patient's age to complete this topic Meningococcal ACWY Vaccine Aged Out N o longer eligible based on patient's age to complete this topic Meningococcal B Vaccine Aged Out No l onger eligible based on patient's age to complete this topic RSV Immunization Patients Under 20 months Aged Out No longer eligible based on patient's age to complete this topic Varicella Vaccines Aged Out No longer eligible based on patient's age to complete this topic Procedures Procedure Name Priority Date/Time Associated Diagnosis Comments CULTURE URINE Routine 11/28/2024 10:15 AM EDT Urinary tract infection, site not specified CBC WITH AUTO DIFFERENTIAL Routine 11/05/2024 11:18 AM EDT A-fib ([facility] V24, [facility] V28) HTN (hypertension) HLD (hyperlipidemia) BPH (benign prostatic hyperplasia) Anemia HEMOGLOBIN A1C Routine 11/05/2024 11:18 AM EDT A-fib ([facility] V24, [facility] V28) HTN (hypertension) HLD (hyperlipidemia) BPH (benign prostatic hyperplasia) Anemia Abnormal finding of blood chemistry, unspecified MICROALBUMIN CREATININE URINE RATIO Routine 11/05/2024 11:18 AM EDT A-fib ([facility] V24, [facility] V28) HTN (hypertension) HLD (hyperlipidemia) BPH (benign prostatic hyperplasia) Anemia CBC AND DIFFERENTIAL Routine 11/05/2024 11:18 AM EDT A-fib (CMS/HCC V24, CMS/HCC V28) HTN (hypertension) HLD (hyperlipidemia) BPH (benign prostatic hyperplasia) Anemia PROSTATE SPECIFIC ANTIGEN SCREEN Routine 11/05/2024 11:18 AM EDT A-fib (CMS/HCC V24, CMS/HCC V28) HTN (hypertension) HLD (hyperlipidemia) BPH (benign prostatic hyperplasia) Anemia Encounter for screening for malignant neoplasm of prostate BASIC METABOLIC PANEL Routine 11/05/2024 11:18 AM EDT A-fib (CMS/HCC V24, CMS/HCC V28) HTN (hypertension) HLD (hyperlipidemia) BPH (benign prostatic hyperplasia) Anemia CREATINE KINASE Routine 11/05/2024 11:18 AM EDT A-fib (CMS/HCC V24, CMS/HCC V28) HTN (hypertension) HLD (hyperlipidemia) BPH (benign prostatic hyperplasia) Anemia ASPARTATE AMINOTRANSFERASE Routine 11/05/2024 11:18 AM EDT A-fib (CMS/HCC V24, CMS/HCC V28) HTN (hypertension) HLD (hyperlipidemia) BPH (benign prostatic hyperplasia) Anemia ALANINE AMINOTRANSFERASE Routine 11:18 AM EDT A-fib (CMS/HCC V24, CMS/HCC V28) HTN (hypertension) HLD (hyperlipidemia) BPH (benign prostatic hyperplasia) Anemia LIPID PANEL WITH REFLEX TO DIRECT LDL Routine 11/05/2024 11:18 AM EDT A-fib (CMS/HCC V24, CMS/HCC V28) HTN (hypertension) HLD (hyperlipidemia) BPH (benign prostatic hyperplasia) Anemia COLONOSCOPY Routine 10/08/2024 7:04 AM EDT XR KNEE 4+ VIEWS LEFT Routine 10/02/2024 2:39 PM EDT Left knee pain from Last 3 Months Results * (ABNORMAL) Culture urine (11/28/2024 10:15 AM EDT) Culture, Urine 50,000-100,000 CFU/mL Escherichia coli ESBL(A) VIOLETA 11/30/2024 9:14 AM EDT [facility] Comment: THIS ORGANISM IS POSITIVE [...] MICROBIOLOGY - GENERAL ORD ERABLES Final Result [facility] [address] [place] [address], * Prostate specific antigen screen (11/05/2024 11:18 AM EDT) PSA 0.50 0.00 - 4.00 ng/mL LAB CHEMISTRY METHOD 11/05/2024 6:03 PM EDT [facility] Blood Venous blood specimen / Unknown Venipuncture / Unknown 11/05/2024 11:18 AM EDT 11/05/2024 11:18 AM EDT Narrative [facility] - 11/05/2024 6:03 PM EDT The Siemens Advia Centaur Chemiluminescent Immunoassay is used. Results obtained with different assay methods or kits cannot be used interchangeably. Results cannot be interpreted as absolute evidence of the presence or absence of malignant disease. us Ruben Paul DO LAB BLOOD ORDERABLES Final Re sult [facility] [address] [place] [address], [place] [phone] * Lipid panel with reflex to direct LDL (11/05/2024 11:18 AM EDT) Cholesterol 119 0 - 200 mg/dL LAB CHEMISTRY METHOD 11/05/2024 5:50 PM EDT [facility] Triglycerides 122 0 - 150 mg/dL LAB CHEMISTRY METHOD [facility] HDL 42 >=40 mg/dL LAB CHEMISTRY METHOD 11/05/2024 5:50 PM T [facility] LDL Calculated 53 0 - 100 mg/dL LAB CHEMISTRY METHOD 11/05/2024 5:50 PM EDT [facility] Comment:Estimated LDL Calcul ated using equation: Total cholesterol - HDL cholesterol - (Triglycerides/5) VLDL Cholesterol Brodie 24.4 mg/dL LAB CHEMISTRY METHOD 11/05/2024 5:50 PM EDT [facility] Non HDL Chol. (LDL+VLDL) 77 <145 mg/dL LAB CHEMISTRY METHOD 11/05/2024 5:50 PM EDT [facility] Chol/HDL Ratio 2.8 0.0 - 4.4 LAB CHEMISTRY METHOD 11/05/2024 5:50 PM EDT [facility] Blood Venous blood specimen / Unknown Venipuncture / Unknown 11/05/2024 11:18 AM EDT 11/05/2024 11:18 AM EDT us Ruben Paul DO LAB BLOOD ORDERABLES Final Re sult [facility] [address] [place] [address], * (ABNORMAL) CBC auto differential (11/05/2024 11:18 AM EDT) WBC 4.3(L) 4.8 - 10.8 K/mcL LAB HEMETOLOGY METHOD 11/05/2024 3:27 PM EDT [facility] RBC 3.60(L) 4.50 - 5.50 M/mcL LAB HEMETOLOGY METHOD 11/05/2024 3:27 PM EDT [facility] Hemoglobin 11.5(L) 13.5 - 17.5 g/dL LAB HEMETOLOGY METHOD 11/05/2024 3:27 PM EDT [facility] Hematocrit 35.4(L) 42.0 - 54.0 % LAB HEMETOLOGY METHOD 11/05/2024 3:27 PM EDT [facility] MCV 97.8 79.0 - 98.0 FL LAB HEMETOLOGY METHOD 11/05/2024 3:27 PM EDT [facility] MCH 31.8 27.0 - 32.0 pcg LAB HEMETOLOGY METHOD 11/05/2024 3:27 PM EDT [facility] MCHC 32.5 32.0 - 37.0 g/dL LAB HEMETOLOGY METHOD 11/05/2024 3:27 PM EDT [facility] RDW 12.2 11.0 - 15.0 % LAB HEMETOLOGY METHOD 11/05/2024 3:[address] [facility] Platelets 240 130 - 400 K/mcL LAB HEMETOLOGY METHOD 11/05/2024 3:[address] [facility] MPV 10.1 7.0 - 11.0 FL LAB HEMETOLOGY METHOD 11/05/2024 3:[address] [facility] NRBC 0.0 <1.0 % LAB HEMETOLOGY METHOD 11/05/2024 3:[address] [facility] NRBC Absolute 0.00 <0.10 K/mcL LAB HEMETOLOGY METHOD 11/05/2024 3:[address] [facility] Neutrophils Relative 67.9 % LAB HEMETOLOGY METHOD 11/05/2024 3:[address] [facility] Lymphocytes Relative 16.5 % LAB HEMETOLOGY METHOD 11/05/2024 3:[address] [facility] Monocytes Relative 9.3 % LAB HEMETOLOGY METHOD 11/05/2024 3:[address] [facility] Eosinophils Relative 5.6 % LAB HEMETOLOGY METHOD 11/05/2024 3:[address] [facility] Basophils Relative 0.5 % LAB HEMETOLOGY METHOD 11/05/2024 3:[address] [facility] Immature Granulocytes Relative 0.2 % LAB HEMETOLOGY METHOD 11/05/2024 3:[address] [facility] Neutrophils Absolute 2.93 1.50 - 7.00 K/mcL LAB HEMETOLOGY METHOD 11/05/2024 3:[address] [facility] Lymphocytes Absolute 0.71(L) 1.00 - 5.00 K/mcL LAB HEMETOLOGY METHOD 11/05/2024 3:[address] [facility] Monocytes Absolute 0.40 0.20 - 1.00 K/mcL LAB HEMETOLOGY METHOD 11/05/2024 3:27 PM EDT [facility] Eosinophils Absolute 0.24 0.00 - 0.50 K/[facility] LAB HEMETOLOGY METHOD 11/05/2024 3:27 PM EDT [facility] Basophils Absolute 0.02 0.00 - 0.20 K/[facility] LAB HEMETOLOGY METHOD 11/05/2024 3:27 PM EDT [facility] Immature Granulocytes Absolute 0.01 0.00 - 0.03 K/[facility] LAB HEMETOLOGY METHOD 11/05/2024 3:27 PM EDT [facility] Blood Venous blood specimen / Unknown Venipuncture / Unknown 11/05/2024 11:18 AM EDT 11/05/2024 11:18 AM EDT [employer] LAB BLOOD ORDERABLES Final Re sult [facility] [address] [place] [address], [place] [phone] * (ABNORMAL) Microalbumin creatinine urine ratio (11/05/2024 11:18 AM EDT) Creatinine, Urine 130.0 mg/dL LAB CHEMISTRY METHOD 11/05/2024 7:11 PM EDT [facility] Microalb, Ur 32.2(H) 0.0 - 29.0 mg/L LAB CHEMISTRY METHOD 11/05/2024 7:11 PM EDT [facility] Microalb/Crea t Ratio 25 <30 mg/g creat LAB CHEMISTRY METHOD 11/05/2024 7:11 PM EDT [facility] Urine Urine specimen obtained by clean catch procedure / Unknown Non-blood Collection / Unknown 11/05/2024 11:18 AM EDT 11/05/2024 11:18 AM EDT [employer] DO LAB URINE ORDERABLES Final Re sult Performing Organization Address [facility]/ZIP Co de Phone Number [facility] [address] [place] [address], * Alanine aminotransferase (11/05/2024 11:18 AM EDT) [facility] ALT (SGPT) 12 10 - 60 unit/L LAB CHEMISTRY METHOD 11/05/2024 5:21 PM EDT [facility] Blood Venous blood specimen / Unknown Venipuncture / Unknown 11/05/2024 11:18 AM EDT 11/05/2024 11:18 AM EDT [facility] BLOOD ORDERABLES Final Re sult Performing Organization Address [facility] Co de Phone Number [facility] [address] [place] [address], * Aspartate aminotransferase (11/05/2024 11:18 AM EDT) [facility] AST (SGOT) 11 10 - 42 unit/L LAB CHEMISTRY METHOD 11/05/2024 5:50 PM EDT [facility] Blood Venous blood specimen / Unknown Venipuncture / Unknown 11/05/2024 11:18 AM EDT 11/05/2024 11:18 AM EDT [facility] BLOOD ORDERABLES Final Re sult Performing Organization Address [facility]/ZIP Co de Phone Number [facility] [address] [place] [address], [place] [phone] * (ABNORMAL) Hemoglobin A1c (11/05/2024 11:18 AM EDT) [facility] Hemoglobin A1C 6.8(H) <6.5 % LAB CHEMISTRY METHOD 11/05/2024 7:28 PM EDT [facility] Mean Bld Glu Estim. 148 mg/dL LAB CHEMISTRY METHOD 11/05/2024 7:28 PM EDT [facility] Blood Venous blood specimen / Unknown Venipuncture / Unknown 11/05/2024 11:18 AM EDT 11/05/2024 11:18 AM EDT [facility] BLOOD ORDERABLES Final Re sult Performing Organization Address City/[facility]/ZIP Co de Phone Number [facility] [address] [place] [address], [place] [phone] * Creatine kinase (11/05/2024 11:18 AM EDT) [facility] Total CK 57 22 - 269 unit/L LAB CHEMISTRY METHOD 11/05/2024 5:50 PM EDT [facility] Blood Venous blood specimen / Unknown Venipuncture / Unknown 11/05/2024 11:18 AM EDT 11/05/2024 11:18 AM EDT [facility] BLOOD ORDERABLES Final Re sult Performing Organization Address [facility]/ZIP Co de Phone Number [facility] [address] [place] [address], [place] [phone] * (ABNORMAL) Basic metabolic panel (11/05/2024 11:18 AM EDT) [facility] Sodium 142 133 - 145 mmol/L LAB CHEMISTRY METHOD 11/05/2024 5:50 PM EDT [facility] Potassium 4.0 3.5 - 5.5 mmol/L LAB CHEMISTRY METHOD 11/05/2024 5:50 PM EDT [facility] Chloride 107 96 - 110 mmol/L LAB CHEMISTRY METHOD 11/05/2024 5:50 PM EDT [facility] CO2 25 21 - 32 mmol/L LAB CHEMISTRY METHOD 11/05/2024 5:50 PM EDT [facility] Anion Gap 10 3 - 11 LAB CHEMISTRY METHOD 11/05/2024 5:50 PM EDT [facility] Glucose 150(H) 70 - 100 mg/dL LAB CHEMISTRY METHOD 11/05/2024 5:50 PM EDT [facility] BUN 22 5 - 25 mg/dL LAB CHEMISTRY METHOD 11/05/2024 5:50 PM EDT [facility] Creatinine 1.23 0.70 - 1.30 mg/dL LAB CHEMISTRY METHOD 11/05/2024 5:50 PM EDT [facility] eGFR 58(L) >=60 mL/min/1. 73m2 LAB CHEMISTRY METHOD 11/05/2024 5:50 PM EDT [facility] Comment:Calculation based on the Chronic Kidney Disease Epidemiology Collaboration (CKD-EPI) equation refit without adjustment for race. BUN/Creatinine Ratio 17.9 LAB CHEMISTRY METHOD 11/05/2024 5:50 PM EDT [facility] Calcium 9.0 8.5 - 10.5 mg/dL LAB CHEMISTRY METHOD 11/05/2024 5:50 PM EDT [facility] Blood Venous blood specimen / Unknown Venipuncture / Unknown 11/05/2024 11:18 AM EDT 11/05/2024 11:18 AM EDT us Ruben Paul DO LAB BLOOD ORDERABLES Final Re sult [facility] [address] [place] [address], * COLONOSCOPY (10/08/2024 7:04 AM EDT) Anatomical Region Laterality Modality Endoscopy Historical Provider GI~PROCEDURE ORDERABLES F inal Result * XR Knee 4+ Views Left (10/02/2024 2:39 PM EDT) Anatomical Region Laterality Modality Lower Extremities, Knee Left Computed Radiography Narrative 10/02/2024 3:43 PM EDT Date of Visit: 10/02/2024 Reason for visit: Left knee pain, left lower extremity numbness Views: AP, Lateral, Diaz, [place] left knee Findings: Mild narrowing through the medial compartment of the left knee with subchondral sclerosis, minimal osteophyte formation. Moderate degenerative changes of the patellofemoral compartment with joint space narrowing and small marginal osteophytes. No acute findings. Impression: Degenerative changes as detailed above Alesia Rider [employer] IMG XR PROCEDURES Final Result from Last 3 Months Additional Health Concerns Infection Onset Date Last Indicated ESBL 03/24/2024 11/28/2024 Insurance BLUE CROSS - [place] MEDICARE ADVANTAGE Care Teams Client Service Representative Relationship Specialty Start Date End Date Ruben Paul DO [address] [place] [phone] PCP - General 10/23/14
[2024-12-07 18:34] VITALS: BP 109/49; PULSE 70; RESP 16; TEMP 36.7; O2SAT 99
--- NOTE | 2024-12-07 18:41 | PC.NURSE ---
Patient c/o possible urinary retention, Sheila only gone a small amount bladder scanned for 158 ml Provider aware
--- NOTE | 2024-12-07 19:37 | PC.NURSE ---
this rn assumed care of pt, pt resting in stretcher, no acute distress noted, vss.
[2024-12-07 19:51] VITALS: BP 130/60; PULSE 87; RESP 18; TEMP 37.6; O2SAT 98
[2024-12-07 21:01] LABS: Appearance Urine Clear; Glucose Urine UA Negative (Negative); PH 5.0 (5.0-9.0); Specific Gravity - Urine 1.020 (1.005-1.025); UMIC TRIGGER UACC YES
[2024-12-07 21:03] LABS: UACC Culture Trigger YES
[2024-12-07 22:01] LABS: COVID-19 Test Negative (Negative); IDNOW Serial# 6674DD1D
[2024-12-07 22:06] LABS: IDNOW Serial# 08D9AD1C; Influenza B2 Negative (Negative)
--- NOTE | 2024-12-07 23:32 | PC.NURSE ---
pt ambulatory to bathroom with steady gait, offers no complaints at this time
[2024-12-07 23:47] VITALS: BP 127/66; PULSE 77; RESP 18; TEMP 37.2; O2SAT 99
[2024-12-07 23:52] VITALS: BP 127/66; PULSE 77; RESP 18; TEMP 37.2; O2SAT 99
== END 2024-12-07 23:52 | disposition home or self-care (01) ==
PROVIDERS: Nurse Practitioner Family; Emergency Provider Emergency Medicine; PCP Internal Medicine
DX: N39.0 Urinary tract infection, site not specified (principal); N17.9 Acute kidney failure, unspecified; E86.0 Dehydration; I11.0 Hypertensive heart disease with heart failure; I50.9 Heart failure, unspecified; I48.0 Paroxysmal atrial fibrillation; Z79.01 Long term (current) use of anticoagulants; Z79.899 Other long term (current) drug therapy
CPT/HCPCS: 36415; 80048; 80076; 81001; 81003; 83605; 85025; 87040; 87086; 87502; 87635; 96361; 96374; 99284; 99285; J0696

== ENCOUNTER 2024-12-29 12:46 | Outpatient (AMB) | payer MEDICARE, SELFPAY ==
[2024-12-29 12:55] VITALS: BP 108/50; PULSE 65; RESP 18; O2SAT 98; BMI 26.5
--- NOTE | 2024-12-29 12:55 | MHC.PC.OV ---
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 Accompanied by: Self / Same As Patient Allergies amoxicillin Adverse Reaction (Verified 12/29/24 12:56) Nausea and Vomiting nitrofurantoin Adverse Reaction (Verified 12/29/24 12:56) Nausea and Vomiting Medication List - Last Reconciled 12/29/24 by Socorro Glover MD amlodipine 10 mg See Protocol PO DAILY apixaban (Eliquis) 5 mg PO BID glipizide ER 10 mg PO DAILY metformin 1,000 mg PO BID simvastatin 20 mg PO BEDTIME sotalol 80 mg PO BID valacyclovir 1,000 mg PO TID walker As directed Tobacco use date assessed: 12/29/24 Fall risk assessment: 1 Fall in past year Last assessed Fall Risk: 12/29/24 Dental Screening Dental Screen Date: 12/29/24 Did you have a dental visit in the last 12 months?: Yes Did you have a dental problem in the last 6 months where you did not have access to dental care?: No Was dental information given to patient?: Patient has dentist HPI HPI Comments History of Present Illness Details The patient is an 84-year-old male with PMH of HTN, A fib, DM2, shingles presenting to [facility]. He reports recurrent shingles. He reports having shingles off and on for the past 4-5 months, and states they are currently returning with lesions on his right side abdomen. The patient has a cardiac history significant for atrial fibrillation. He underwent an ablation 8-9 years ago, which provided significant improvement for many years. He was previously on warfarin, requiring weekly blood tests, but was switched to Eliquis about a year ago. He follows with a pusher operator, Dr. Rodas. The patient also reports frequent urinary tract infections, which recur within a week after treatment. He has a history of benign prostatic hyperplasia and underwent a prostate operation after medications like tamsulosin and finasteride were ineffective. He has had adverse reactions to amoxicillin and Nitrofurantoin, but tolerates cefuroxime well. His other medical history includes mild anemia with a hemoglobin of 12.1, which is thought to be related to low iron, and he takes witz-glz-dwbrkka iron supplements. He is a former smoker, having quit 40 years ago. He has scheduled an intra-articular hip injection for the following day for leg pain and falls. [facility] Medical History BPH (benign prostatic hyperplasia) Type 2 diabetes mellitus Hyperlipidemia Paroxysmal atrial fibrillation Essential hypertension Social History Household Members: Spouse Housing: House Do you presently have visiting nurse or other home services: No Patient Tobacco Use Status: Former Tobacco user Tobacco use type: Cigarette Second Hand Smoke Exposure: No service: Yes Cognitive needs: No Hearing needs: Yes Vision needs: Yes Questionnaire PHQ-9 Over the last 2 weeks, how often have you been bothered by any of the following problems? 1. Little interest or pleasure in doing things: not at all 2. Feeling down, depressed, or hopeless: not at all 3. Trouble falling or staying asleep, or sleeping too much: several days 4. Feeling tired or having little energy: several days 5. Poor appetite or overeating: not at all 6. Feeling bad about yourself - or that you are a failure or have let yourself or your family down: several days 7. Trouble concentrating on things, such as reading the newspaper or watching television: not at all 8. Moving or speaking so slowly that other people could have noticed. Or the opposite - being so fidgety or restless that you have been moving around a lot more than usual: not at all 9. Thoughts that you would be better off or of hurting yourself in some way: not at all Total score: 3 Depression Screening Interpretation: Negative Depression Screening Done: Yes Source: Developed by Drs. Jerson Stanton, Inga Calle, Valeriano Olvera and colleagues, with an educational yrn from [employer]. Thrive Questionnaire Date Thrive assessed: 12/29/24 I am a: Patient What is your living situation today?: I have a steady place to live Within the past 12 months, did the food you bought not last and you didn't have the money to get more?: Never true Within the past 12 months, did you worry whether your food would run out before you got money to buy more?: Never true Do you have trouble paying for medicines?: No Do you have trouble getting transportation to medical appointments?: No Do you have trouble paying your heating and electricity bill?: No Do you have trouble taking care of your child, family member or friend?: No Do you have trouble with day-to-day activities such as bathing, preparing meals, shopping, managing finances, etc.?: No Are you currently unemployed and looking for a job?: No Are you interested in more education?: No Please select the resources that you would like help with: None Currently or been in a relationship where the following occur: No concerns reported THRIVE Score: 0 AUDIT C Alcohol Use Questionnaire (AUDIT-C) 1. How often do you have a drink containing alcohol?: Never Total Score: 0 VERNA-7 AMB Questionnaire VERNA-7 Date VERNA - 7 assessed: 12/29/24 Feeling nervous, anxious, or on edge: 1 = Several days Not being able to stop or control worryin = Several days Worrying too much about different things: 0 = Not at all Trouble relaxin = Not at all Being so restless that it is hard to sit still: 0 = Not at all Becoming easily annoyed or irritable: 1 = Several days Feeling afraid as if something awful might happen: 0 = Not at all Total VERNA-7 score (0-4 normal; 5-9 mild; 10-14 moderate; 15-21 severe): 3 Source: Developed by Drs. Jerson Stanton, Inga Calle, Valeriano Olvera and colleagues, with an educational yrn from [employer]. Review of Systems Const Details: As per HPI. Physical exam (Primary Care) Vital Signs: Last Vital Signs Pulse 65 12/29/24 12:55 Resp 18 12/29/24 12:55 BP 108/50 L 12/29/24 12:55 Pulse Ox 98 12/29/24 12:55 Oxygen Delivery Method Room Air 12/29/24 12:55 BMI result Body Mass Index 26.5 Tobacco/Smoking Status: Tobacco use Status Tobacco use date assessed 12/29/24 12/29/24 12:57 Patient Tobacco Use Status Former Tobacco user 12/29/24 12:57 Tobacco use type Cigarette 12/29/24 12:57 PHQ-9: PHQ-9 Score PHQ-9: Total score 3 12/29/24 14:29 Depression Screening Interpretation: Negative Thrive Assessment: Date of Thrive Assessment Date Thrive assessed 12/29/24 12/29/24 12:57 Currently or been in a relationship where the following occur: No concerns reported Const Other: Pertinent findings are in BOLD GENERAL APPEARANCE NAD, activity normal for age, well developed/ well nourished, no cyanosis, pallor, or diaphoresis. EYES lids/conjunctiva normal. EARS/NOSE/THROAT Mucous membranes moist, nares normal, lips/teeth normal uvula midline without oral pharyngeal erythema, exudate or swelling TMs normal bilaterally. No lymphangitis/lymphedema. HEAD/NECK normocephalic atraumatic, no facial trauma, neck is supple. RESPIRATORY respiratory effort normal, speaks in full sentences, no tripod position, no accessory muscle use. Lungs clear to auscultation without rhonchi, wheezes, rales CARDIAC Regular rate and rhythm, no edema. ABDOMINAL Soft, ND/NT. No evidence of fluid wave. No pulsatile masses on exam, rebound tenderness, Yates sign or pain over Mcburney's point. MUSCLES/EXTREMITIES No abnormal range of motion, no swelling. Bilateral lower extremities weakness. SKIN Warm, pink and dry. No rashes, dermatoses, petechiae or lesions. Healing shingles lesions on right side of the abdomen. NEUROLOGICAL Speech is clear and appropriate. Normal level of consciousness. Gait and coordination are normal. 5/5 strength in all extremities. PSYCH Normal mood and affect. Judgement/competence is appropriate Results AMB Hemoglobin A1c AMB Hemoglobin A1c 6.9 % Last Edit by Jeniffer Hernandez MA on 12/29/24 14:30 Immunizations Boostrix Tdap 2.5 Lf unit-8 mcg-5 Lf/0.5 mL intramuscular syringe Performing Provider: Socorro Glover MD [facility] Administered by: Dania Mendez RN on 12/29/24 14:37 Dose Route Admin Location Dispensed Lot Number Expiration Date [facility] Farm Equipment Technician 0.5 mL IM Right Deltoid 0.5 mL [id number] 05/09/27 [id number] [employer] Total Dispensed Waste 0.5 mL 0 % VIS Given Date VIS Provided VIS Publication Date 12/29/24 Single Vaccine 20 Eligibility Eligibility Date Funding Source Not [facility] Eligible 12/29/24 Private Results Reviewed Results Reviewed: Laboratory Last Values Hgb A1c (Clinic) 6.9 % (4.0-6.0) H 12/29/24 13:48 Coding Level of Care Code Est Pt Level 4 (94761) Diagnoses Healthcare maintenance Z00.00 Paroxysmal atrial fibrillation I48.0 Atrial fibrillation type: paroxysmal Arthritis of hip, unspecified laterality M16.10 Laterality: unspecified laterality Dysuria R30.0 Herpes zoster without complication B02.9 Herpes zoster complications: without complications Iron deficiency anemia, unspecified iron deficiency anemia type D50.9 Iron deficiency anemia type: unspecified iron deficiency Time Spent (min) 40 Assessment & Plan Assessment & Plan (1) Healthcare maintenance: Code(s): Z00.00 - Encounter for general adult medical examination without abnormal findings Category: Medical Plan: CBC, CMP, Lipid panel, A1C, TSH w T4, vit D. Ordered. Shingles 2 doses when >50 yo. Completed one dose. Advised the COVID: two doses. Completed. Pneumococcal: >50 yo. 18-49 with CKD, lung disease, weakened immune system, Heart disease, DM, cochlear implant. Flu vaccine: Completed. this year as per the patient. Tdap: every 10 years. Today. Colonoscopy: 45-75. aged out. AAA: 65 -75. Aged out[address] CT lun - 80. Aged out. PSA: 50 -70 every two years. Ordered today. HIV: Ordered. HCV: Ordered. (2) A-fib: Comment: s/p ablation Code(s): I48.91 - Unspecified atrial fibrillation Category: Medical Qualifiers: Atrial fibrillation type: paroxysmal Qualified Code(s): I48.0 - Paroxysmal atrial fibrillation Plan: Continue Sotalol and Eliquiss. The patient follows with pusher operator Dr. Rodas. 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 (4) Dysuria: Code(s): R30.0 - Dysuria Category: Medical Plan: Patient had adverse reaction to Amoxiciliin and Nitrofurantoin in the past. The patient is currently having mild dysuria. UA ordered to rule out current infection. In case the patient develops UTI he will need to be treated with Cefuroxime. (5) Shingles: Code(s): B02.9 - Zoster without complications Category: Medical Qualifiers: Herpes zoster complications: without complications Qualified Code(s): B02.9 - Zoster without complications Plan: The patient has current shingles lesions. They seem they are healing. However, since he continues to experience pain in the area, and since he continues to have lesions, we will treat him with 6 days of Valacyclovir 1000 TID. - Recommended completing the shingles vaccine series once his lesions fully resolves. (6) Iron deficiency anemia: Code(s): D50.9 - Iron deficiency anemia, unspecified Category: Medical Qualifiers: Iron deficiency anemia type: unspecified iron deficiency Qualified Code(s): D50.9 - Iron deficiency anemia, unspecified Plan: Continue OTC iron supplements. We will recheck iron panel with next clinic visit. Plan I have sent a prescription for Valacyclovir to treat your shingles, which you should take for six days. After you finish the medicine, I recommend to get the two-shot shingles vaccine series, starting over with the first shot. I also ordered a urine test and some blood work, including PSA. We administered a tetanus shot here in the clinic today, as it has been over 10 years since your last one. I also recommend you get the latest COVID-19 vaccine, which is available at retail pharmacies. I have refilled all your medications and sent them to the [facility] mail-order pharmacy. For future refills, you can call our office and leave a message. Orders: Orders AMB Hemoglobin A1c Today Z13.9 - Encounter for screening, unspecified Prostate Specific Antigen Today Z00.00 - Encounter for general adult medical examination without abnormal findings UA and rflx microscopic Today R30.0 - Dysuria, Z00.00 - Encounter for general adult medical examination without abnormal findings Vitamin B12 and Folate Today D64.9 - Anemia, unspecified, Z00.00 - Encounter for general adult medical examination without abnormal findings TSH reflex Free T4 Today Z00.00 - Encounter for general adult medical examination without abnormal findings Hepatitis B Core Antibody Today Z00.00 - Encounter for general adult medical examination without abnormal findings TDaP Immunization Today Z23 - Encounter for immunization Vitamin D 25-OH Total Today Z00.00 - Encounter for general adult medical examination without abnormal findings Total Protein Urine Random Today Z00.00 - Encounter for general adult medical examination without abnormal findings HIV Ab/Ag Today Z00.00 - Encounter for general adult medical examination without abnormal findings Medications: New metformin 1,000 mg PO BID 60 tabs 3RF simvastatin 20 mg PO BEDTIME 60 tabs 3RF apixaban (Eliquis) 5 mg PO BID 180 tabs 3RF glipizide ER 10 mg PO DAILY 90 tabs 3RF sotalol 80 mg PO BID 120 tabs 3RF Refilled valacyclovir 1,000 mg PO TID 18 tabs 0RF amlodipine 10 mg See Protocol PO DAILY 90 tabs 3RF
--- NOTE | 2024-12-29 14:37 | MHC.PC.OV ---
Vital Signs 12/29/24 12:55 Height 5 ft 8.9 in Weight 179 lb BMI 26.5 BP 108/50 L Blood Pressure Location Lt brachial Position Sitting Respiration 18 Pulse 65 Pulse Source Pulse Oximeter Temp Source Temporal Artery Scan Pulse Oximetry (%) 98 Oxygen Delivery Method Room Air Intake Visit Reasons: Establish care Allergies amoxicillin Adverse Reaction (Verified 12/29/24 12:56) Nausea and Vomiting nitrofurantoin Adverse Reaction (Verified 12/29/24 12:56) Nausea and Vomiting Medication List - Last Reconciled 12/29/24 by Socorro Glover MD amlodipine 10 mg See Protocol PO DAILY apixaban (Eliquis) 5 mg PO BID glipizide ER 10 mg PO DAILY metformin 1,000 mg PO BID simvastatin 20 mg PO BEDTIME sotalol 80 mg PO BID valacyclovir 1,000 mg PO TID walker As directed Tobacco use date assessed: 12/29/24 Dental Screening Dental Screen Date: 12/29/24 Did you have a dental visit in the last 12 months?: Yes Did you have a dental problem in the last 6 months where you did not have access to dental care?: No Was dental information given to patient?: Patient has dentist [facility] Medical History BPH (benign prostatic hyperplasia) Type 2 diabetes mellitus Hyperlipidemia Paroxysmal atrial fibrillation Essential hypertension Social History Household Members: Spouse Housing: House Do you presently have visiting nurse or other home services: No Patient Tobacco Use Status: Former Tobacco user Tobacco use type: Cigarette Second Hand Smoke Exposure: No service: Yes Cognitive needs: No Hearing needs: Yes Vision needs: Yes Questionnaire PHQ-9 Over the last 2 weeks, how often have you been bothered by any of the following problems? 1. Little interest or pleasure in doing things: not at all 2. Feeling down, depressed, or hopeless: not at all 3. Trouble falling or staying asleep, or sleeping too much: several days 4. Feeling tired or having little energy: several days 5. Poor appetite or overeating: not at all 6. Feeling bad about yourself - or that you are a failure or have let yourself or your family down: several days 7. Trouble concentrating on things, such as reading the newspaper or watching television: not at all 8. Moving or speaking so slowly that other people could have noticed. Or the opposite - being so fidgety or restless that you have been moving around a lot more than usual: not at all 9. Thoughts that you would be better off or of hurting yourself in some way: not at all Total score: 3 Depression Screening Interpretation: Negative Depression Screening Done: Yes Source: Developed by Drs. Jerson Stanton, Inga Calle, Valeriano Olvera and colleagues, with an educational yrn from [employer]. Thrive Questionnaire Date Thrive assessed: 12/29/24 I am a: Patient What is your living situation today?: I have a steady place to live Within the past 12 months, did the food you bought not last and you didn't have the money to get more?: Never true Within the past 12 months, did you worry whether your food would run out before you got money to buy more?: Never true Do you have trouble paying for medicines?: No Do you have trouble getting transportation to medical appointments?: No Do you have trouble paying your heating and electricity bill?: No Do you have trouble taking care of your child, family member or friend?: No Do you have trouble with day-to-day activities such as bathing, preparing meals, shopping, managing finances, etc.?: No Are you currently unemployed and looking for a job?: No Are you interested in more education?: No Please select the resources that you would like help with: None Currently or been in a relationship where the following occur: No concerns reported THRIVE Score: 0 AUDIT C Alcohol Use Questionnaire (AUDIT-C) 1. How often do you have a drink containing alcohol?: Never Total Score: 0 VERNA-7 AMB Questionnaire VERNA-7 Date VERNA - 7 assessed: 12/29/24 Feeling nervous, anxious, or on edge: 1 = Several days Not being able to stop or control worryin = Several days Worrying too much about different things: 0 = Not at all Trouble relaxin = Not at all Being so restless that it is hard to sit still: 0 = Not at all Becoming easily annoyed or irritable: 1 = Several days Feeling afraid as if something awful might happen: 0 = Not at all Total VERNA-7 score (0-4 normal; 5-9 mild; 10-14 moderate; 15-21 severe): 3 Source: Developed by Drs. Jerson Stanton, Inga Calle, Valeriano Olvera and colleagues, with an educational yrn from [employer]. Physical exam (Primary Care) Vital Signs: Last Vital Signs Pulse 65 12/29/24 12:55 Resp 18 12/29/24 12:55 BP 108/50 L 12/29/24 12:55 Pulse Ox 98 12/29/24 12:55 Oxygen Delivery Method Room Air 12/29/24 12:55 BMI result Body Mass Index 26.5 Tobacco/Smoking Status: Tobacco use Status Tobacco use date assessed 12/29/24 12/29/24 14:38 Patient Tobacco Use Status Former Tobacco user 12/29/24 14:38 Tobacco use type Cigarette 12/29/24 14:38 PHQ-9: PHQ-9 Score PHQ-9: Total score 3 12/29/24 14:38 Depression Screening Interpretation: Negative Thrive Assessment: Date of Thrive Assessment Date Thrive assessed 12/29/24 12/29/24 14:38 Currently or been in a relationship where the following occur: No concerns reported Results AMB Hemoglobin A1c AMB Hemoglobin A1c 6.9 % Last Edit by Jeniffer Hernandez MA on 12/29/24 14:30 Immunizations Boostrix Tdap 2.5 Lf unit-8 mcg-5 Lf/0.5 mL intramuscular syringe Performing Provider: Socorro Glover MD [facility] Administered by: Dania Mendez RN on 12/29/24 14:37 Dose Route Admin Location Dispensed Lot Number Expiration Date [facility] Legal File Clerk 0.5 mL IM Right Deltoid 0.5 mL [id number] 05/09/27 55180-864-80 [employer] Total Dispensed Waste 0.5 mL 0 % VIS Given Date VIS Provided VIS Publication Date 12/29/24 Single Vaccine 20 Eligibility Eligibility Date Funding Source Not [facility] Eligible 12/29/24 Private Results Reviewed Results Reviewed: Laboratory Last Values Hgb A1c (Clinic) 6.9 % (4.0-6.0) H 12/29/24 13:48 Coding Diagnoses Healthcare maintenance Z00.00 Assessment & Plan Assessment & Plan (1) Healthcare maintenance: Code(s): Z00.00 - Encounter for general adult medical examination without abnormal findings Category: Medical Orders: Orders AMB Hemoglobin A1c Today Z13.9 - Encounter for screening, unspecified Prostate Specific Antigen Today Z00.00 - Encounter for general adult medical examination without abnormal findings UA and rflx microscopic Today R30.0 - Dysuria, Z00.00 - Encounter for general adult medical examination without abnormal findings Vitamin B12 and Folate Today D64.9 - Anemia, unspecified, Z00.00 - Encounter for general adult medical examination without abnormal findings TSH reflex Free T4 Today Z00.00 - Encounter for general adult medical examination without abnormal findings Hepatitis B Core Antibody Today Z00.00 - Encounter for general adult medical examination without abnormal findings TDaP Immunization Today Z23 - Encounter for immunization Vitamin D 25-OH Total Today Z00.00 - Encounter for general adult medical examination without abnormal findings Total Protein Urine Random Today Z00.00 - Encounter for general adult medical examination without abnormal findings HIV Ab/Ag Today Z00.00 - Encounter for general adult medical examination without abnormal findings Medications: New metformin 1,000 mg PO BID 60 tabs 3RF simvastatin 20 mg PO BEDTIME 60 tabs 3RF apixaban (Eliquis) 5 mg PO BID 180 tabs 3RF glipizide ER 10 mg PO DAILY 90 tabs 3RF sotalol 80 mg PO BID 120 tabs 3RF Refilled valacyclovir 1,000 mg PO TID 18 tabs 0RF amlodipine 10 mg See Protocol PO DAILY 90 tabs 3RF
== END 2024-12-29 14:37 | disposition home or self-care (01) ==
LOC: HO.HMCH 12:47
PROVIDERS: PCP Internal Medicine; Visit Provider Internal Medicine
DX: Z00.00 Encounter for general adult medical examination without abnormal findings (principal); I48.0 Paroxysmal atrial fibrillation; M16.10 Unilateral primary osteoarthritis, unspecified hip; R30.0 Dysuria; B02.9 Zoster without complications; D50.9 Iron deficiency anemia, unspecified; Z23 Encounter for immunization; Z13.9 Encounter for screening, unspecified

== ENCOUNTER → 2024-12-29 12:46 | Outpatient (BNVA) | payer MEDICARE, SELFPAY | PROVIDERS: PCP Internal Medicine; Visit Provider Internal Medicine | DX: Z00.00 Encounter for general adult medical examination without abnormal findings (principal); I10 Essential (primary) hypertension; E11.9 Type 2 diabetes mellitus without complications; D64.9 Anemia, unspecified; I48.0 Paroxysmal atrial fibrillation; M16.10 Unilateral primary osteoarthritis, unspecified hip; R30.0 Dysuria; B02.9 Zoster without complications; D50.9 Iron deficiency anemia, unspecified; Z23 Encounter for immunization; Z79.01 Long term (current) use of anticoagulants; Z87.440 Personal history of urinary (tract) infections | CPT/HCPCS: 83036; 90471; 90715; 96127; 99212 ==

== ENCOUNTER 2025-01-16 14:59 | Outpatient (AMB) | payer MEDICARE, SELFPAY ==
[2025-01-16 15:20] VITALS: BP 128/50; PULSE 75; RESP 18; O2SAT 100; BMI 27.2
--- NOTE | 2025-01-16 15:20 | MHC.PC.OV ---
Vital Signs 01/16/25 15:20 Height 5 ft 8.9 in Weight 183 lb 6 oz BMI 27.2 BP 128/50 L Blood Pressure Location Lt brachial Position Sitting Respiration 18 Pulse 75 Pulse Source Pulse Oximeter Temp Source Temporal Artery Scan Pulse Oximetry (%) 100 Oxygen Delivery Method Room Air Intake Visit Reasons: dizziness Helper Metal Hanging Required: No Accompanied by: Self / Same As Patient Allergies amoxicillin Adverse Reaction (Verified 01/16/25 15:21) Nausea and Vomiting nitrofurantoin Adverse Reaction (Verified 01/16/25 15:21) Nausea and Vomiting Medication List - Last Reconciled 01/16/25 by Socorro Glover MD amlodipine 10 mg See Protocol PO DAILY apixaban (Eliquis) 5 mg PO BID glipizide ER 10 mg PO DAILY metformin 1,000 mg PO BID simvastatin 20 mg PO BEDTIME sotalol 80 mg PO BID valacyclovir 1,000 mg PO TID walker As directed Tobacco use date assessed: 01/16/25 Fall risk assessment: 1 Fall in past year Last assessed Fall Risk: 01/16/25 Dental Screening Dental Screen Date: 01/16/25 Did you have a dental visit in the last 12 months?: Yes Did you have a dental problem in the last 6 months where you did not have access to dental care?: No Was dental information given to patient?: Patient has dentist HPI HPI Comments History of Present Illness Details The patient is an 84 year old male with PMH of A fib [facility], HTN, DM presenting with dizziness. He reports episodes of dizziness, with the first occurrence after Thanksgiving and another recent episode a few days ago at a pain management clinic. The recent episodes were about a week apart, representing an increase in frequency from a prior episode on August 16. During the episodes, he experiences a spinning sensation, describing it as everything is spinning and his head just reeling. One episode before Thanksgiving lasted approximately 15 minutes, during which he was unable to move. He has experienced falls associated with these spells, one on August 16 and another the day before Thanksgiving. The dizziness is not postural, as one episode occurred while he was walking to wash dishes after standing for some time. The patient has a history of atrial fibrillation, for which he takes Eliquis. He has worn a Holter monitor previously for this condition. He also reports chronic tinnitus for years, which is not a new symptom. [facility] Medical History BPH (benign prostatic hyperplasia) Type 2 diabetes mellitus Hyperlipidemia Paroxysmal atrial fibrillation Essential hypertension Social History Household Members: Spouse Housing: House Do you presently have visiting nurse or other home services: No Patient Tobacco Use Status: Former Tobacco user Tobacco use type: Cigarette Second Hand Smoke Exposure: No service: Yes Cognitive needs: No Hearing needs: Yes Vision needs: Yes Questionnaire Thrive Questionnaire Date Thrive assessed: 01/16/25 I am a: Patient What is your living situation today?: I have a steady place to live Within the past 12 months, did the food you bought not last and you didn't have the money to get more?: Never true Within the past 12 months, did you worry whether your food would run out before you got money to buy more?: Never true Do you have trouble paying for medicines?: No Do you have trouble getting transportation to medical appointments?: No Do you have trouble paying your heating and electricity bill?: No Do you have trouble taking care of your child, family member or friend?: No Do you have trouble with day-to-day activities such as bathing, preparing meals, shopping, managing finances, etc.?: No Are you currently unemployed and looking for a job?: No Are you interested in more education?: No Please select the resources that you would like help with: None Currently or been in a relationship where the following occur: No concerns reported THRIVE Score: 0 AUDIT C Alcohol Use Questionnaire (AUDIT-C) 3. How often do you have six or more drinks on one occasion?: Never Total Score: 0 VERNA-7 AMB Questionnaire VERNA-7 Date VERNA - 7 assessed: 12/29/24 Source: Developed by Drs. Jerson Stanton, Inga Calle, Valeriano Olvera and colleagues, with an educational yrn from [employer]. Review of Systems Const Details: As per HPI. Physical exam (Primary Care) Vital Signs: Last Vital Signs Pulse 75 01/16/25 15:20 Resp 18 01/16/25 15:20 BP 128/50 L 01/16/25 15:20 Pulse Ox 100 01/16/25 15:20 Oxygen Delivery Method Room Air 01/16/25 15:20 BMI result Body Mass Index 27.2 Tobacco/Smoking Status: Tobacco use Status Tobacco use date assessed 01/16/25 01/16/25 15:32 Patient Tobacco Use Status Former Tobacco user 01/16/25 15:21 Tobacco use type Cigarette 01/16/25 15:21 Thrive Assessment: Date of Thrive Assessment Date Thrive assessed 01/16/25 01/16/25 15:32 Currently or been in a relationship where the following occur: No concerns reported Const Other: Pertinent findings are in BOLD GENERAL APPEARANCE NAD, activity normal for age, well developed/ well nourished, no cyanosis, pallor, or diaphoresis. EYES lids/conjunctiva normal. EARS/NOSE/THROAT Mucous membranes moist, nares normal, lips/teeth normal uvula midline without oral pharyngeal erythema, exudate or swelling TMs normal bilaterally. No lymphangitis/lymphedema. HEAD/NECK normocephalic atraumatic, no facial trauma, neck is supple. RESPIRATORY respiratory effort normal, speaks in full sentences, no tripod position, no accessory muscle use. Lungs clear to auscultation without rhonchi, wheezes, rales CARDIAC Regular rate and rhythm, no edema. ABDOMINAL Soft, ND/NT. No evidence of fluid wave. No pulsatile masses on exam, rebound tenderness, Yates sign or pain over Mcburney's point. MUSCLES/EXTREMITIES No abnormal range of motion, no swelling. SKIN Warm, pink and dry. No rashes, dermatoses, petechiae or lesions. NEUROLOGICAL Speech is clear and appropriate. Normal level of consciousness. Gait and coordination are normal. 5/5 strength in all extremities. PSYCH Normal mood and affect. Judgement/competence is appropriate Coding Level of Care Code Est Pt Level 3 (23061) Diagnoses Dizziness R42 Hearing deficit H91.90 Time Spent (min) 20 Assessment & Plan Assessment & Plan (1) Dizziness: Code(s): R42 - Dizziness and giddiness Category: Medical Plan: - The etiology of the patient's dizziness is unclear with potential cardiac, neurologic, or otologic causes. - A stroke is less likely given the absence of focal weakness on examination. - Paroxysmal atrial fibrillation causing rapid heart rate is a possible cause. - A routine CT of the head will be ordered to rule out intracranial pathology. - A Holter monitor for two weeks will be ordered to evaluate for arrhythmias. - The current amlodipine dose will be maintained for now, with consideration for reducing it if CT and Holter results are unremarkable, as tight blood pressure control is not indicated at his age and may contribute to symptoms. - A follow-up visit is scheduled in one month to review the diagnostic results. (2) Hearing deficit: Code(s): H91.90 - Unspecified hearing loss, unspecified ear Category: Medical Plan: Speech and hearing referral. Plan I explained to the patient that his dizziness could have multiple causes, including his heart, brain, or inner ears, and that his history of atrial fibrillation is a possible contributing factor. I informed him that his physical exam showed no signs of weakness, making a stroke less likely. We will proceed with a CT scan of his head and a two-week Holter monitor to investigate further. We discussed his blood pressure and the decision to keep his amlodipine dose unchanged for now, with a plan to re-evaluate after the test results are available, as overly tight blood pressure control is not necessary at his age. We will schedule a follow-up in about a month to review the results. Orders: Orders CT head/brain wo IV con Today R42 - Dizziness and giddiness ECG 14 day holter monitor Today R42 - Dizziness and giddiness Referrals Speech and Hearing Referral H91.90 - Unspecified hearing loss, unspecified ear
--- OUTSIDE RECORDS SUMMARY | 2025-01-16 19:06 | XMS_ITS | Clinical Summary ---
Author Organization [facility] Address [address] [place] [id number] Phone Care Team Providers Care Air Cargo Specialist Supervisor Name Role Phone Pcp, Unknown Primary Care [...] [place] BLUE REPLACEMENT [facility] MEDICARE PPO BLUE REPLACEMENT [facility] MEDICARE PPO [facility]UE [facility]PLACEMENT [facility] MEDIC[facility] PPO BLUE [facility]EMENT [address] [facility] [place] Care Teams Air Cargo Specialist Supervisor Relationship Specialty Start Date End Date Pcp, Unknown PCP - General 01/23/24 Additional Source Comments The information contained in this document represents components of the legal health record. It is not the complete legal health record.[facility]
--- OUTSIDE RECORDS SUMMARY | 2025-01-16 19:06 | XMS_ITS | Data Portability ---
Author Organization [facility], Main Office Address [address] [address] [address] [place] [address] Care Team Providers Care Production Grip Name Role Phone CAREONE (NONO UNIT) OTHER [...] Address Organization Details Recorded Time Essential hypertension 61368525 Active [address], [address], [place], [address], [facility] 4 09:47:51 Encephalitis 21136005 Active 2023 [facility] [address], [place], [address], [facility] 4 09:47:57 Diabetes mellitus 08434321 Active 2023 [employer] [address] [place] [address], [address], [place], [address], [facility] 4 09:49:10 Atrial fibrillation 47401115 Active 2023 [employer] [address] [place] [address], [address], [place], [address], [facility] 4 09:50:01 Benign prostatic hyperplasia 553804578 Active 2023 [employer] [facility] , [address], [place], [address], [facility] 4 09:50:13 Hyperlipidemia 83289205 Active 2023 [employer] [address] , [address], [place], [address], [facility] 4 09:50:33 Problem Notes None recorded. Medical Equipment None Reported. Allergies No known drug allergies Vitals Date Recorded Body height Body mass index (BMI) Body weight Heart rate Respiratory rate Body temperature Oxygen saturation Systolic And Diastolic Provider Name and Address Organization Details Last Updated DateTime 4 175.26 cm 28.1 kg/m2 07290.9 1 g 65 /min 16 /min 97.2 [degF] 96 % 116/66 mm[Hg] Ira Braun MD [address] , [address], [place], [address], [facility] 18:58:55 Social History Question Answer Notes LastModified by Organizat ion Details LastModified Time Tobacco Smoking Status Former Smoker stopped 1969 Ira Braun MD [address], [address], [place], [address], [facility] 01/29/2024 19:35:49 Do You Have An Advance Directive? Yes Information not available 01/29/2024 What Is Your Code Status? Full Code glord Information not available 01/23/2024 Where Do You Live? [facility] With . Mostly Stays In Basement, Can Go To Main Floor When Desired. Information not available 01/29/2024 Legal Guardian? No Informati on not available 01/29/2024 Do You Have A Medical Power Of Compounding Technician? Yes HCP Not Invoked Information not available [...] (RSV) vaccine, unspecified 11/12/2023 completed Sharon Chang [facility] 01/25/2024 14:27:23 influenza, unspecified formulation 11/09/2021 completed Sharon Chang [facility] 01/25/2024 14:27:36 influenza, unspecified formulation 11/13/2022 completed Sharon Chang [facility] 01/25/2024 14:27:43 influenza, unspecified formulation 10/10/2023 completed Sharon Chang [facility] 01/25/2024 14:27:50 SARS-COV-2 (COVID-19) vaccine, UNSPECIFIED 03/18/2020 completed Sharon Chang [facility] 01/25/2024 14:28:04 SARS-COV-2 (COVID-19) vaccine, UNSPECIFIED 04/11/2020 completed Sharon Chang [facility] 01/25/2024 14:28:11 SARS-COV-2 (COVID-19) vaccine, UNSPECIFIED 11/11/2020 completed Sharon Chang [facility] 01/25/2024 14:28:18 SARS-COV-2 (COVID-19) vaccine, UNSPECIFIED 05/12/2021 completed Sharon Chang [facility] 01/25/2024 14:28:26 SARS-COV-2 (COVID-19) vaccine, UNSPECIFIED 11/17/2021 completed Sharon Chang [facility] 01/25/2024 14:28:32 SARS-COV-2 (COVID-19) vaccine, UNSPECIFIED 11/13/2022 completed Sharon Chang [facility] 01/25/2024 14:28:41 SARS-COV-2 (COVID-19) vaccine, UNSPECIFIED [facility] 01/25/2024 14:28:49 Past Encounters Encounter ID Performer Location Encounter Start Date Encounter Closed Date Diagnosis/Indication Diagnosis SNOMED-CT Code Diagnosis ICD10 Code Diagnosis IMO Codes Diagnosis Note [id number] [facility] [address] [place] [address] 01/23/2024 09:39:14 01/25/2024 11:47:15 Encephalitis 12708436 G04.90 cefuroxime 500 mg BID x 14 daysvalacy clovir 1000 mg TID x 14 daysmonito r mental status Essential hypertension 05382228 I10 amlodipine 10 mg dailysotal ol 80 mg BIDmonitor bps - very high today, trend and increase if needed Diabetes mellitus 725164 09 E11.9 glipizide 10 mg dailymetfo rmin 1000 mg BID Atrial fibrillation 4943 6004 I48.91 eliquis 5 mg BIDmonitor rate Benign pro static hyperplasia 088054453 N40.0 finasterid e 5 mg dailyfloma x 0.8 mg dailymonit or outflow Hyperlipidemia 46393990 E78.5 simvastati n 20 mg dailymonit or lipids Riley hematuria 06927607 5 R31.0 labs stableno complaints of dysuriaon eliquismon itor for resolution , if continues get UA [id number] YOLANDA Hernández [facility] on [address] [place] [address] 01/24/2024 14:03:16 01/25/2024 11:52:40 Atrial fibrillation 38685830 I48.91 stop eliquis 5 mg BID, resume on 01/26 due to significan t hematuriam onitor rate Riley hematuria 87219555 5 R31.0 hold eliquis until 01/26obtai n CBC tomorrowob tain UA to rule out infection [id number] YOLANDA Hernández at [facility] on [address] [place] [address] 01/27/2024 09:24:21 01/28/2024 12:38:05 Riley hematuria 575005468 R31.0 eliquis restarting todayUA shows >10,000 yeastmonit or for clearing Retention of urine 10246 4002 R33.9 on flomax 0.8 mgon finasterid elikely due to clottingSC for PVR >350 ccmonitorl abs in range [id number] YOLANDA Hernández at [facility] on [address] [place] [address] 01/28/2024 09:24:31 01/29/2024 14:45:30 Retention of urine 902126658 R33.9 on flomax 0.8 mg since admissiono n finasterid e dailyreten tion likely due to clottingfo kaci in placehold eliquis again x 48 hours until bleeding resolves Riley hematuria 72122880 5 R31.0 hold eliquis x 48 hoursmonit or mark [id number] Ira Braun MD [facility] at [facility] on [address] [place] [phone] 01/29/2024 12:53:25 02/04/2024 13:26:32 Encephalitis 30572655 G02 Meningitis vs. encephalit is.Continu e cefuroxime 500 mg BID and valacyclov ir 1000 mg TID to complete 14 day course on 02/05.Bhargavi tor signs of infection or MS changes.F/ U with ID prn. Essential hypertension 60805786 I10 BP in good control since here.Germania nue amlodipine 10 mg qd, lisinopril 20 mg qd and sotalol 80 mg BIDMonitor BP and labs. Diabetes mellitus 849202 09 E11.9 Sugars were in excellent control the first 3 days he was here, so no longer being checked.Co ntinue glipizide 10 mg qd and metformin 1000 mg BIDMonitor prn Atrial fibrillation 4943 6004 I48.0 Rate in good control on meds as above.Hold ing eliquis as above, restart 5 mg BID on 01/31.Bhargavi tor HR and bleeding risk. Benign pro static hyperplasia 774246630 N40.[address]Cont inue finasterid e 5 mg qd and tamsulosin 0.8 mg qdMonitor mark function.F /U with uro as planned. Hyperlipidemia 85296798 E78.49 Continue simvastati n 20 mg qdMonitor labs as outpt. Retention of urine 90775 4002 R33.8 Thought to be due to hematuria/ clots.Cont inue mark until hematuria clears.Con tinue tamsulosin 0.8 mg qd and finasterid e 5 mg qd.Attempt voiding trial after hematuria clears. Riley hematuria 94503147 5 R31.0 Hold order for Eliquis never implemente d yest.Will hold 01/29 and 01/30 and restart 01/31. will schedule uro appt. [id number] YOLANDACICI Hernández at [facility] on [address] [place] [address] 02/04/2024 11:17:41 02/05/2024 09:59:24 Encephalitis 27483200 G02 Meningitis vs. encephalit is.Continu e cefuroxime 500 mg BID and valacyclov ir 1000 mg TID to complete 14 day course on 02/05.F/U with ID prn. Retention of urine 02864 4002 R33.8 Continue tamsulosin 0.8 mg qd and finasterid e 5 mg qd.Attempt voiding trial with urology outpt Essential hypertension 06260441 I10 BP in good control since here.Germania nue amlodipine 10 mg qd, lisinopril 20 mg qd and sotalol 80 mg BID Diabetes mellitus 886259 09 E11.9 Sugars were in excellent control the first 3 days he was here, so no longer being checked.Co ntinue glipizide 10 mg qd and metformin 1000 mg BID Atrial fibrillation 4943 6004 I48.0 Rate in good control on meds as above.eliq uis BID Benign pro static hyperplasia 619160869 N40.[address]Cont inue finasterid e 5 mg qd and tamsulosin 0.8 mg qdF/U with uro as planned. Hyperlipidemia 30210275 E78.49 Continue simvastati n 20 mg qdMonitor labs as outpt. Health Concerns Section Related Observation LastModified by Organization Detai ls LastModified Time None Recorded Concern Status LastModified by Organization Details LastModified Time None Recorded Advance Directives Directive Y: Payers Insurance Date Sequence Insurance Name Policy Number Policy Pacheco Covered Member ID Pacheco Member ID Guarantor Name 02/04/2024 1 [facility] [place]UE (MEDICARE REPLACEMENT PPO) [id number] Katina Stephens [id number] Katina Stephens Notes Date Note Type Note Provider Name and Address Organization Details Recorded Time 4 text/html This is an 83 year old female seen today for acute rounding visit. Patient here for rehab after hospital stay for viral meningitis. Since admission patient with significant hematuria, tells me this has never happened before. PMH significant for afib, htn, dm [address], [facility] [address], [place], [address], [facility] 01/24/2024 14:07:23 4 text/html This is an 83 year old female seen today for acute rounding visit. Patient here for rehab after hospital stay for viral meningitis. Since admission patient with significant hematuria, his eliquis was placed on hold. Today he was not able to void, bladder scan for >900 cc and straight cathed. PMH significant for afib, htn, dm YOLANDA [address], [address], [place], [address], [facility] 01/27/2024 09:27:38 4 text/html This is [...] qhs. Last night it appears nurse called environmental issues instructor group and they ordered to increase flomax [...] for afib, htn, dm YOLANDA LORD [address], [address], [place], [address], [facility] 01/28/2024 09:36:19 4 text/html This is an 83 yo man who is here for rehab after an acute hospitalization for probable meningitis.[facility]/o of a BOLANOS [...] 2, and allergic rhinitis. Ira Braun MD [address] [place] [address], [address], [place], [address], [facility] 02/02/2024 18:33:46 4 text/html This is an [...] significant for afib, htn, dm YOLANDA [address], [address], [place], [address], [facility] 02/04/2024 12:28:34
== END 2025-01-16 15:56 | disposition home or self-care (01) ==
LOC: HO.HMCH 15:00
PROVIDERS: PCP Internal Medicine; Visit Provider Internal Medicine
DX: R42 Dizziness and giddiness (principal); H91.90 Unspecified hearing loss, unspecified ear

== ENCOUNTER → 2025-01-16 14:59 | Outpatient (BNVA) | payer MEDICARE, SELFPAY | PROVIDERS: PCP Internal Medicine; Visit Provider Internal Medicine | DX: I10 Essential (primary) hypertension (principal); E11.9 Type 2 diabetes mellitus without complications; R42 Dizziness and giddiness; I48.91 Unspecified atrial fibrillation; Z79.01 Long term (current) use of anticoagulants | CPT/HCPCS: 99212 ==